=== PATIENT | male | born 1940 | race Caucasian/White ===

== ENCOUNTER 2023-05-20 13:29 | Outpatient (REF) | payer MEDICARE, BC, SELFPAY ==
[2023-05-20 14:50] LABS: Erythrocyte Sedimentation Rate 8 MM/HR (0-15)
[2023-05-20 16:07] LABS: Anion Gap 11 (12-20); Blood Urea Nitrogen 25 mg/dL (9-16); Calcium 10.1 mg/dL (8.4-10.2); Carbon Dioxide 29 mmol/L (22-29); Chloride 108 mmol/L (96-108); Estimated Glomerular Filt Rate 54; Glucose Random 91 mg/dL (60-115); Potassium 4.5 mmol/L (3.3-5.1); Sodium 143 mmol/L (135-145)
[2023-05-21 09:39] LABS: Lyme Abs Screen <0.90 index
== END 2023-05-20 13:30 | disposition home or self-care (01) ==
LOC: HO.LAB 13:29
PROVIDERS: PCP Internal Medicine; Visit Provider Psychiatry & Neurology Neurology
DX: G93.40 Encephalopathy, unspecified (principal)
CPT/HCPCS: 36415; 80048; 85652; 86617; 86618

== ENCOUNTER 2023-06-18 09:37 | Outpatient (REF) | payer MEDICARE, BC, SELFPAY ==
--- NOTE | ~2023-06-18 | MR_ITS ---
EXAMINATION: MR BRAIN WITHOUT AND WITH CONTRAST CLINICAL INFORMATION: Encephalopathy. COMPARISON: Brain MRI from 12/05/2021. TECHNIQUE: MRI of the brain was obtained using routine sequences without and following the administration of 8.5 mL of Gadavist intravenous contrast. FINDINGS: No focal restricted diffusion is demonstrated to suggest acute or subacute cerebral ischemia. No evidence of acute or chronic hemorrhagic products on heme-sensitive imaging. Scattered and partially confluent periventricular, deep white matter, and brainstem T2 FLAIR hyperintensities consistent with mild to moderate underlying microangiopathy. Proportional prominence of the ventricles and sulcal spaces without evidence of obstructive hydrocephalus. No abnormal mass effect. No midline shift. Normal appearance of the pituitary gland. Normal positioning of the cerebellar tonsils. Normal arterial and venous vascular flow voids are present. No abnormal contrast enhancement. Normal, homogeneous marrow signal. Mild mucosal thickening of the paranasal sinuses. No signal abnormalities within the mastoids. Bilateral lens extractions. MR/MR head/brain wo/w con IMPRESSION: 1. No acute intracranial abnormalities. No abnormal intracranial enhancement. 2. Mild to moderate underlying microangiopathy and generalized cerebral volume loss.
[2023-06-18] MEDS: gadobutroL 10 ML VIAL IVPUSH (10:48)
== END 2023-06-18 09:38 | disposition home or self-care (01) ==
LOC: HO.MRI 09:37
PROVIDERS: PCP Internal Medicine; Visit Provider Psychiatry & Neurology Neurology
DX: G93.40 Encephalopathy, unspecified (principal)
CPT/HCPCS: 70553; A9585

== ENCOUNTER 2023-07-03 11:03 | Outpatient (AMB) | payer MEDICARE, BC, SELFPAY ==
--- NOTE | 2023-07-03 11:50 | MHC.OFFVISPS ---
Intake Vital Signs 07/03/23 12:21 Height 6 ft 2 in Weight 172 lb Intake Visit Reasons: depression Chain Person Required: No Allergies amoxicillin Allergy (Intermediate, Verified 07/03/23 12:23) Rash Medication List - Last Reconciled 07/03/23 by Rosey Mojica APRN atorvastatin 20 mg PO DAILY cyanocobalamin (vitamin B-12) 1,000 mcg IM fluticasone propionate 50 mcg/actuation sprays intranasal lamotrigine 150 mg PO DAILY levothyroxine 175 mcg PO DAILY lithium carbonate ER mg PO memantine 5 mg PO BID quetiapine 200 mg PO BEDTIME sertraline 25 mg PO DAILY syringe with needle (BD Luer-Abdelrahman Syringe) As directed tamsulosin 0.4 mg PO BEDTIME HPI- Psychiatric Chief Complaint: depression HPI Narrative: Pt presents to appt with his Ly. He asks her to sit in on session with him. 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 he is anxious about ti. he af=grees with the diagnosis. he tells me both his parents has Alzheimer Disease in their 80s. He reports mood good but anxious; avoids social activities due to anxiety; states its hard fro him to talk at times. spends time with ; he does go to the gym to exercise with his and works on strength building several times a week; he reports his balance is not good and he has started to use cane; He finds it helpful to reminisce. He is able to reframe negative thoughts; He is adherent with meds; Pt reports no SI no HI; no sedation but intermittent dizziness when going from sitting to standing and lying down to standing; no fever; no SOB; no cough. He sees his PCP July 08 and the neurologist in September. He has started on sertraline 25mg daily and memantine 5 mg daily from neurologist Dr Moon. I have reviewed the two consult notes and summary from Dr Juarez Past Psychiatric History: saw Dr. Naqvi for 20 years; Stable on current meds for years; gets blood work done every 6 months; reports significant balance problems for years. Subjective Subjective Subjective Medication Compliance: Yes Side effects from medications: No Review of Systems Medical Review of Systems: changed Review of Systems Reports memory loss Comments: recent dx of Early Alzheimer disease Psychiatric: Reports memory loss Mental Status Exam Mental Status Exam Patient Appearance: Well Grooomed and Appropriate Patient Orientation: Person, Place, Time and Situation Level of Consciousness: Awake and Follows Commands Patient Behavior: Appropriate and Cooperative Mood Description: Appropriate and Anxious Affect Description: Appropriate and Anxious Patient Cognition Impaired: No Ability to Follow Directions: Good Speech Pattern: Clear and Difficulty Finding Words Memory Description: Episodic Impaired Hallucinations: None Delusions: Not Present Thought Process: Intact and Goal Oriented Thought Content: positive for Intact Judgement: Fair Results Reviewed Results Reviewed: 1) review of neurology consultation and summaries dated 05/20/23 and 06/26/23 : 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 2) review of MRI report from 06/18/23 : IMPRESSION: 1. No acute intracranial abnormalities. No abnormal intracranial enhancement. 2. Mild to moderate underlying microangiopathy and generalized cerebral volume loss. Assessment and Plan Assessment & Plan (1) Bipolar 1 disorder, mixed, moderate: Status: Acute Code(s): F31.62 - Bipolar disorder, current episode mixed, moderate (2) ERIK (generalized anxiety disorder): Status: Acute Code(s): F41.1 - Generalized anxiety disorder Plan Patient is an 83-year-old male with a history of bipolar 1 disorder and ERIK recently diagnosed with early Alzheimer disease. Plan Blood work ordered to check lithium and Lamictal levels as well as complete metabolic panel in order to assess efficacy at rule out side effects contributing to mild cognitive impairment. Continue medications as prescribed for now Consider reducing dosages specifically lithium and Seroquel to reduce possible side effects. Collaborate with primary care and neurology. Medications: New lamotrigine 150 mg PO DAILY 30 tabs 3RF lithium carbonate ER 900 mg (3 x 300 mg) PO BEDTIME 90 tabs 1RF quetiapine 200 mg PO BEDTIME 30 tabs 1RF Orders: Orders [place] Today [phone] - Other intermediate project manager (current) drug therapy Lamotrigine Lamictal Today [phone] - Other [facility] (current) drug therapy [facility] Today [phone] - Other intermediate project manager (current) drug therapy Counseling and coordination of Care Pt. Self Management counseling: Exercise, Maintenance-social rhythm, Med illness tx adherence, Nutrition education and improvement, Behavior activation and General coping skills Medication management counseling: Effectiveness, Side effects, Dosing range, Duration, Drug interaction and Adherence Diagnosis and Prognosis Counseling: Accuracy of diagnosis, Prognosis over time, Impact of diagnosis on life functions, Impact of family relationship, Problematic behaviors secondary to diagnosis and Adequacy of current interventions Details: I spent 50 minutes reviewing the record, seeing the patient and documenting in the medical record. Counseling provided to the patient/caregiver as outlined below. Addressed patient/caregiver concerns regarding current medication regime including effective adherence. Addressed patient/caregiver concerns regarding diagnosis and prognosis including accuracy of diagnosis, prognosis over time, impact of diagnosis. Addressed patient/caregiver concerns regarding impact of recent stressors. 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 parents were immigrants from [place], youngest of 6 children, all siblings . Substance History: none Trauma History: none Coding Level of Care Code Est Pt Level 5 (70227) Diagnoses Bipolar 1 disorder, mixed, moderate F31.62 ERIK (generalized anxiety disorder) F41.1
== END 2023-07-03 11:55 | disposition home or self-care (01) ==
LOC: HO.HOP 11:04
PROVIDERS: PCP Internal Medicine; Visit Provider Clinical Nurse Specialist Psychiatric/Mental Health
DX: F31.62 Bipolar disorder, current episode mixed, moderate (principal); F41.1 Generalized anxiety disorder
CPT/HCPCS: 99215

== ENCOUNTER → 2023-07-03 11:03 | Outpatient (BNVA) | payer MEDICARE, BC, SELFPAY | PROVIDERS: PCP Internal Medicine; Visit Provider Clinical Nurse Specialist Psychiatric/Mental Health | DX: F31.62 Bipolar disorder, current episode mixed, moderate (principal); F41.1 Generalized anxiety disorder; Z79.899 Other long term (current) drug therapy | CPT/HCPCS: 99212 ==

== ENCOUNTER 2023-08-12 13:53 | Outpatient (AMB) | payer MEDICARE, BC, SELFPAY ==
--- NOTE | 2023-08-12 13:58 | A.OFFPSYCH_ITS ---
Intake Intake Visit Reasons: depression, Bipolar disorder, anxiety Allergies amoxicillin Allergy (Intermediate, Verified 07/03/23 12:23) Rash Medication List - Last Reconciled 08/12/23 by Rosey Mojica APRN atorvastatin 20 mg PO DAILY cyanocobalamin (vitamin B-12) 1,000 mcg IM fluticasone propionate 50 mcg/actuation sprays intranasal lamotrigine 150 mg PO DAILY levothyroxine 175 mcg PO DAILY lithium carbonate ER 900 mg (3 x 300 mg) PO BEDTIME memantine 5 mg PO BID quetiapine 200 mg PO BEDTIME sertraline 25 mg PO DAILY syringe with needle (BD Luer-Abdelrahman Syringe) As directed tamsulosin 0.4 mg PO BEDTIME HPI- Psychiatric Chief Complaint: depression, Bipolar disorder, anxiety HPI Narrative: pt is here for follow up for Bipolar depression, anxiety and new diagnosis of early Alzheimer disease; pt is accompanied by his Ly. Pt mood fair; he had labs done and these are scanned to the chart; lithium level and lamictal level both in therapeutic range; BUN creatinine and LFTs are in normal range. Pt discussing end of life care concerns; has begun detailing health directives with his and PCP; pt also discussed being triggered by dx of alzheimers as his father at age of 74 of same; pt states his father was awful to him throughout his life and he fears becoming like his father. Pt has been isolating. he did not go to [facility] because he was afraid he would embarrass himself by making a mistake. denies SI or HI Past Psychiatric History: saw Dr. Naqvi for 20 years; Stable on current meds for years; gets blood work done every 6 months; reports significant balance problems for years. Current/previous psychiatrist: [facility] Current/previous therapist: none Subjective Subjective Subjective Medication Compliance: Yes Side effects from medications: No Review of Systems Medical Review of Systems: unchanged Mental Status Exam Mental Status Exam Patient Appearance: Well Grooomed and Appropriate Patient Orientation: Person, Place, Time and Situation Level of Consciousness: Awake Patient Behavior: Appropriate and Good Eye Contact Mood Description: Depressed Affect Description: Withdrawn (initially) and Appropriate Ability to Follow Directions: Good Speech Pattern: Clear, Difficulty Finding Words and Poor Articulation Memory Description: Intact Hallucinations: None Delusions: Not Present Thought Process: Rumination Thought Content: positive for Preoccupation Judgement: Fair Assessment and Plan Assessment & Plan (1) Bipolar 1 disorder, mixed, moderate: Status: Acute Code(s): F31.62 - Bipolar disorder, current episode mixed, moderate (2) ERIK (generalized anxiety disorder): Status: Acute Code(s): F41.1 - Generalized anxiety disorder (3) Anticipatory grief: Status: Acute Code(s): F43.20 - Adjustment disorder, unspecified Plan continue medications problem solving and supportive psychotherpay re: end of life concerns CBT to reduce depression and isolation Counseling and coordination of Care Pt. Self Management counseling: Maintenance-social rhythm, Mindfulness, Sleep hy giene, General coping skills and Greif counseling Medication management counseling: Effectiveness, Side effects, Dosing range, Duration, Drug interaction and Adherence Diagnosis and Prognosis Counseling: Accuracy of diagnosis, Prognosis over time, Impact of diagnosis on life functions, Impact of family relationship, Problematic behaviors secondary to diagnosis and Adequacy of current interventions Details: I spent 45 minutes reviewing the record, seeing the patient and documenting in the medical record. Counseling provided to the patient/caregiver as outlined below. Addressed patient/caregiver concerns regarding current medication regime including effective adherence. Addressed patient/caregiver concerns regarding diagnosis and prognosis including accuracy of diagnosis, prognosis over time, impact of diagnosis. Addressed patient/caregiver concerns regarding impact of recent stressors. 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 parents were immigrants from [place], youngest of 6 children, all siblings . Substance History: none Trauma History: none Coding Level of Care Code Est Pt Level 4 (99558) Therapy 30m w/E&M (80060) Diagnoses Bipolar 1 disorder, mixed, moderate F31.62 ERIK (generalized anxiety disorder) F41.1 Anticipatory grief F43.20
== END 2023-08-12 14:30 ==
LOC: HO.HOP 13:53
PROVIDERS: PCP Internal Medicine; Visit Provider Clinical Nurse Specialist Psychiatric/Mental Health
DX: F31.62 Bipolar disorder, current episode mixed, moderate (principal); F41.1 Generalized anxiety disorder; F43.20 Adjustment disorder, unspecified
CPT/HCPCS: 90833; 99214

== ENCOUNTER → 2023-08-12 13:53 | Outpatient (BNVA) | payer MEDICARE, BC, SELFPAY | PROVIDERS: PCP Internal Medicine; Visit Provider Clinical Nurse Specialist Psychiatric/Mental Health | DX: F31.62 Bipolar disorder, current episode mixed, moderate (principal); F41.1 Generalized anxiety disorder; F43.20 Adjustment disorder, unspecified | CPT/HCPCS: 99212 ==

== ENCOUNTER 2023-09-17 14:00 | Outpatient (AMB) | payer MEDICARE, BC, SELFPAY ==
--- NOTE | 2023-09-17 14:56 | MHC.OFFVISPS ---
Intake Intake Visit Reasons: depression, dementia, anxiety Hydraulic Press Tender Required: No Allergies amoxicillin Allergy (Intermediate, Verified 07/03/23 12:23) Rash HPI- Psychiatric Chief Complaint: depression, dementia, anxiety HPI Narrative: Patient is here with his today for follow-up on bipolar depression anxiety and adjusting to his new diagnosis of Alzheimer's depression. Patient has been compliant with medications however he missed several B12 injections. He reports he has had some good days where his mood has been good he is optimistic energetic and involved with others. On other days he feels depressed low energy he falls asleep easily during the day he will not often a chair while reading a book. He has more worried thoughts on the bad days. He struggles more with self-esteem. He reports difficulty falling asleep at night he feels restless at night anxious and worried he reports delayed sleep initiation. He also reports waking in the middle of the night with nightmares several times a week. He has good support from his . He enjoys reminiscing. He has been thinking about his life reviewing it and thinking about his . He reports that he has a feeling that there is nothing left undone which she says brings him. He reports at times he worries about the dementia. His father of dementia and he says that his father was very agitated and very difficult before his . Patient does not want to experience the same level of agitation as his father. We talked about the fact that his father did not have access to medication that helps with agitation. And that the patient does have access to medication to reduce agitation if needed. Past Psychiatric History: saw Dr. Naqvi for 20 years; Stable on current meds for years; gets blood work done every 6 months; reports significant balance problems for years. Subjective Subjective Subjective Medication Compliance: Yes Side effects from medications: No Review of Systems Medical Review of Systems: unchanged Mental Status Exam Mental Status Exam Patient Appearance: Well Grooomed and Appropriate Patient Orientation: Person, Place, Time and Situation Level of Consciousness: Awake and Alert Patient Behavior: Appropriate and Cooperative Mood Description: Happy, Appropriate, Anxious and Sad Affect Description: Happy, Appropriate, Anxious and Sad Ability to Follow Directions: Good Speech Pattern: Clear and Appropriate Memory Description: Intact Hallucinations: None Delusions: Not Present Thought Process: Intact and Goal Oriented Thought Content: positive for Intact Judgement: Good Results Reviewed Results Reviewed: PHQ9 =4 GAD7 =4 labs done in june 2023 scanned to chart- lithium level 1.0 Assessment and Plan Assessment & Plan (1) ERIK (generalized anxiety disorder): Status: Acute Code(s): F41.1 - Generalized anxiety disorder (2) Bipolar 1 disorder, mixed, moderate: Status: Acute Code(s): F31.62 - Bipolar disorder, current episode mixed, moderate (3) Anticipatory grief: Status: Acute Code(s): F43.20 - Adjustment disorder, unspecified Plan reduce lithium from 900mg at bedtime to 750mg at bedtime continue lamictal 150mg daily contiue seroquel 200mg at bedtime continue zoloft 25 mg daily Medications: New lithium carbonate 150 mg PO BEDTIME 30 caps 2RF sertraline 25 mg PO DAILY 30 tabs 2RF Changed From lithium carbonate ER 900 mg (3 x 300 mg) PO BEDTIME 90 tabs 1RF To lithium carbonate ER 600 mg (2 x 300 mg) PO BEDTIME 60 tabs 1RF Refilled lamotrigine 150 mg PO DAILY 30 tabs 3RF Counseling and coordination of Care Pt. Self Management counseling: Exercise, Maintenance-social rhythm, Sleep hygiene and Greif counseling Medication management counseling: Effectiveness, Side effects, Dosing range, Duration, Drug interaction and Adherence Diagnosis and Prognosis Counseling: Accuracy of diagnosis, Prognosis over time, Impact of diagnosis on life functions, Impact of family relationship, Problematic behaviors secondary to diagnosis and Adequacy of current interventions Details: I spent 60 minutes reviewing the record, seeing the patient and documenting in the medical record. Counseling provided to the patient/caregiver as outlined below. Addressed patient/caregiver concerns regarding current medication regime including effective adherence. Addressed patient/caregiver concerns regarding diagnosis and prognosis including accuracy of diagnosis, prognosis over time, impact of diagnosis. Addressed patient/caregiver concerns regarding impact of recent stressors. 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 parents were immigrants from [place], youngest of 6 children, all siblings . Substance History: none Trauma History: none Coding Level of Care Code Est Pt Level 4 (15822) Therapy 30m w/E&M (96446) Diagnoses ERIK (generalized anxiety disorder) F41.1 Bipolar 1 disorder, mixed, moderate F31.62 Anticipatory grief F43.20 Comment support reminiscing, grief counseling; CBT to reduce depression
== END 2023-09-17 14:54 | disposition home or self-care (01) ==
LOC: HO.HOP 14:00
PROVIDERS: PCP Internal Medicine; Visit Provider Clinical Nurse Specialist Psychiatric/Mental Health
DX: F41.1 Generalized anxiety disorder (principal); F31.62 Bipolar disorder, current episode mixed, moderate; F43.20 Adjustment disorder, unspecified
CPT/HCPCS: 90833; 99214

== ENCOUNTER → 2023-09-17 14:00 | Outpatient (BNVA) | payer MEDICARE, BC, SELFPAY | PROVIDERS: PCP Internal Medicine; Visit Provider Clinical Nurse Specialist Psychiatric/Mental Health | DX: F31.62 Bipolar disorder, current episode mixed, moderate (principal); F43.20 Adjustment disorder, unspecified; F41.1 Generalized anxiety disorder | CPT/HCPCS: 99212 ==

== ENCOUNTER 2023-09-25 15:46 | Outpatient (REF) | payer MEDICARE, BC, SELFPAY ==
[2023-10-03 15:24] LABS: Acetylcholine Recept. Blocking 36 (<15)
[2023-10-09 16:07] LABS: Acetylcholine Recep Modulating 79
[2023-10-09 17:04] LABS: Acetylcholine Receptor Binding 0.65 nmol/L
== END 2023-09-25 15:47 | disposition home or self-care (01) ==
LOC: HO.LAB 15:46
PROVIDERS: PCP Internal Medicine; Visit Provider Psychiatry & Neurology Neurology
DX: R47.1 Dysarthria and anarthria (principal)
CPT/HCPCS: 36415; 86041; 86042; 86043

== ENCOUNTER 2023-10-14 10:58 | Outpatient (AMB) | payer MEDICARE, BC, SELFPAY ==
--- NOTE | 2023-10-14 10:58 | MHC.OFFVISPS ---
Intake Intake Visit Reasons: depression Allergies amoxicillin Allergy (Intermediate, Verified 07/03/23 12:23) Rash Medication List - Last Reconciled 10/14/23 by Rosey Mojica APRN atorvastatin 20 mg PO DAILY cyanocobalamin (vitamin B-12) 1,000 mcg IM fluticasone propionate 50 mcg/actuation sprays intranasal lamotrigine 150 mg PO DAILY levothyroxine 175 mcg PO DAILY lithium carbonate 150 mg PO BEDTIME lithium carbonate ER 600 mg (2 x 300 mg) PO BEDTIME memantine 5 mg PO BID quetiapine 200 mg PO BEDTIME sertraline 25 mg PO DAILY sertraline 25 mg PO DAILY syringe with needle (BD Luer-Abdelrahman Syringe) As directed tamsulosin 0.4 mg PO BEDTIME HPI- Psychiatric Chief Complaint: depression HPI Narrative: pt has decreased the lithium from 900mg daily to 750mg daily; mood is more positive,. he is not falling asleep during the day as often; He has resumed B12 injections and goes to the office at [place] to get them. He has started playing his kepyboard daily. he is reading poetry out loud; he is attending [employer]. He continues to be critical of self at times. He reports having balance problems and uses a cane consistently. no falls in over 6 months. Past Psychiatric History: saw Dr. Naqvi for 20 years; Stable on current meds for years; gets blood work done every 6 months; reports significant balance problems for years. Subjective Subjective Subjective Medication Compliance: Yes Side effects from medications: No Review of Systems Medical Review of Systems: unchanged Mental Status Exam Mental Status Exam Patient Appearance: Well Grooomed and Appropriate Patient Orientation: Person, Place, Time and Situation Level of Consciousness: Awake and Appropriate Patient Behavior: Appropriate and Talkative Mood Description: Happy and Appropriate Affect Description: Happy and Appropriate Patient Cognition Impaired: No Ability to Follow Directions: Good Speech Pattern: Clear, Difficulty Finding Words (minimal 2 times in session), Appropriate and Coherent Memory Description: Intact Hallucinations: None Delusions: Not Present Thought Process: Intact and Goal Oriented Thought Content: positive for Intact and positive for Goal Oriented Judgement: Good Assessment and Plan Assessment & Plan (1) ERIK (generalized anxiety disorder): Status: Acute Code(s): F41.1 - Generalized anxiety disorder (2) Bipolar 1 disorder, mixed, moderate: Status: Acute Code(s): F31.62 - Bipolar disorder, current episode mixed, moderate (3) Anticipatory grief: Status: Acute Code(s): F43.20 - Adjustment disorder, unspecified Plan continue medications with no changes. stay hydrated take care in hot weather due to reduced temp regulation due to meds Counseling and coordination of Care Medication management counseling: Effectiveness, Side effects, Dosing range, Duration, Drug interaction and Adherence Diagnosis and Prognosis Counseling: Accuracy of diagnosis, Prognosis over time, Impact of diagnosis on life functions, Impact of family relationship, Problematic behaviors secondary to diagnosis and Adequacy of current interventions Details: I spent 45 minutes reviewing the record, seeing the patient and documenting in the medical record. Counseling provided to the patient/caregiver as outlined below. Addressed patient/caregiver concerns regarding current medication regime including effective adherence. Addressed patient/caregiver concerns regarding diagnosis and prognosis including accuracy of diagnosis, prognosis over time, impact of diagnosis. Addressed patient/caregiver concerns regarding impact of recent stressors. 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 parents were immigrants from [place], youngest of 6 children, all siblings . Substance History: none Trauma History: none Coding Level of Care Code Est Pt Level 4 (02439) Therapy 30m w/E&M (61106) Diagnoses ERIK (generalized anxiety disorder) F41.1 Bipolar 1 disorder, mixed, moderate F31.62 Anticipatory grief F43.20
== END 2023-10-14 11:33 | disposition home or self-care (01) ==
LOC: HO.HOP 10:58
PROVIDERS: PCP Internal Medicine; Visit Provider Clinical Nurse Specialist Psychiatric/Mental Health
DX: F41.1 Generalized anxiety disorder (principal); F31.62 Bipolar disorder, current episode mixed, moderate; F43.20 Adjustment disorder, unspecified
CPT/HCPCS: 90833; 99214

== ENCOUNTER → 2023-10-14 10:58 | Outpatient (BNVA) | payer MEDICARE, BC, SELFPAY | PROVIDERS: PCP Internal Medicine; Visit Provider Clinical Nurse Specialist Psychiatric/Mental Health | DX: F41.1 Generalized anxiety disorder (principal); F31.62 Bipolar disorder, current episode mixed, moderate; F43.20 Adjustment disorder, unspecified | CPT/HCPCS: 99212 ==

== ENCOUNTER 2023-11-26 11:01 | Outpatient (AMB) | payer MEDICARE, BC, SELFPAY ==
--- NOTE | 2023-11-26 11:11 | A.OFFPSYCH_ITS ---
Intake Intake Visit Reasons: depression Administrative Assistant Front Desk Required: No Allergies amoxicillin Allergy (Intermediate, Verified 07/03/23 12:23) Rash Medication List - Last Reconciled 11/26/23 by Rosey Mojica APRN atorvastatin 20 mg PO DAILY cyanocobalamin (vitamin B-12) 1,000 mcg IM fluticasone propionate 50 mcg/actuation sprays intranasal lamotrigine 150 mg PO DAILY levothyroxine 175 mcg PO DAILY lithium carbonate 150 mg PO BEDTIME lithium carbonate ER 900 mg (3 x 300 mg) PO BEDTIME memantine 5 mg PO BID memantine 10 mg PO BID pantoprazole 40 mg PO DAILY prednisone 20 mg PO BID pyridostigmine bromide 60 mg PO TID quetiapine 200 mg PO BEDTIME sertraline 25 mg PO DAILY sertraline 25 mg PO DAILY syringe with needle (BD Luer-Abdelrahman Syringe) As directed tamsulosin 0.4 mg PO BEDTIME HPI- Psychiatric Chief Complaint: depression HPI Narrative: pt taking medications as prescribed; pt reports feeling discouraged; he was recently dx with myasthenia gravis and started on prednisone and pyridostigmine bromide. Hes feeling weak and easily fatigued. He worries about . 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 He talked about his parents' deaths. He shows no sign of boris; No SI or HI Past Psychiatric History: saw Dr. Naqvi for 20 years; Stable on current meds for years; gets blood work done every 6 months; reports significant balance problems for years. Subjective Subjective Subjective Medication Compliance: Yes Side effects from medications: No Review of Systems Medical Review of Systems: unchanged Mental Status Exam Mental Status Exam Patient Appearance: Well Grooomed and Appropriate Patient Orientation: Person, Place, Time and Situation Level of Consciousness: Awake and Appropriate Patient Behavior: Appropriate and Cooperative Mood Description: Anxious Affect Description: Anxious Patient Cognition Impaired: No Ability to Follow Directions: Good Speech Pattern: Clear Hallucinations: None Delusions: Not Present Thought Process: Intact and Goal Oriented Thought Content: positive for Intact and positive for Goal Oriented Judgement: Fair Assessment and Plan Assessment & Plan (1) Anticipatory grief: Status: Acute Code(s): F43.20 - Adjustment disorder, unspecified (2) ERIK (generalized anxiety disorder): Status: Acute Code(s): F41.1 - Generalized anxiety disorder (3) Bipolar 1 disorder, mixed, moderate: Status: Acute Code(s): F31.62 - Bipolar disorder, current episode mixed, moderate Plan reduce lamictal from 150mg to 100mg daily as pt is on many medications and may not tolerate as well due to polypharmacy. Medications: New lamotrigine (Lamictal) 100 mg PO DAILY 30 tabs 2RF Discontinued lamotrigine Discontinued Reason: Doctor's Order 150 mg PO DAILY 30 tabs 3RF Counseling and coordination of Care Pt. Self Management counseling: Maintenance-social rhythm, Sleep hygiene, General coping skills, Greif counseling and Problem solving Medication management counseling: Effectiveness, Side effects, Dosing range, Duration, Drug interaction and Adherence Diagnosis and Prognosis Counseling: Accuracy of diagnosis, Prognosis over time, Impact of diagnosis on life functions, Impact of family relationship, Problematic behaviors secondary to diagnosis and Adequacy of current interventions Details: I spent 60 minutes reviewing the record, seeing the patient and documenting in the medical record. Counseling provided to the patient/caregiver as outlined below. Addressed patient/caregiver concerns regarding current medication regime including effective adherence. Addressed patient/caregiver concerns regarding diagnosis and prognosis including accuracy of diagnosis, prognosis over time, impact of diagnosis. Addressed patient/caregiver concerns regarding impact of recent stressors. 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 parents were immigrants from [place], youngest of 6 children, all siblings . Substance History: none Trauma History: none Coding Level of Care Code Est Pt Level 4 (08379) Therapy 30m w/E&M (38815) Diagnoses Anticipatory grief F43.20 ERIK (generalized anxiety disorder) F41.1 Bipolar 1 disorder, mixed, moderate F31.62
== END 2023-11-26 11:58 | disposition home or self-care (01) ==
LOC: HO.HOP 11:01
PROVIDERS: PCP Internal Medicine; Visit Provider Clinical Nurse Specialist Psychiatric/Mental Health
DX: F43.20 Adjustment disorder, unspecified (principal); F41.1 Generalized anxiety disorder; F31.62 Bipolar disorder, current episode mixed, moderate
CPT/HCPCS: 90833; 99214

== ENCOUNTER → 2023-11-26 11:01 | Outpatient (BNVA) | payer MEDICARE, BC, SELFPAY | PROVIDERS: PCP Internal Medicine; Visit Provider Clinical Nurse Specialist Psychiatric/Mental Health | DX: F43.20 Adjustment disorder, unspecified (principal); F41.1 Generalized anxiety disorder; F31.62 Bipolar disorder, current episode mixed, moderate | CPT/HCPCS: 99212 ==

== ENCOUNTER 2024-01-14 10:37 | Outpatient (AMB) | payer MEDICARE, BC, SELFPAY ==
--- NOTE | 2024-01-14 10:47 | MHC.OFFVISPS ---
Intake Intake Visit Reasons: depression Retail Gift Card Merchandising Required: No Allergies amoxicillin Allergy (Intermediate, Verified 07/03/23 12:23) Rash Medication List - Last Reconciled 01/14/24 by Rosey Mojica APRN atorvastatin 20 mg PO DAILY cyanocobalamin (vitamin B-12) 1,000 mcg IM fluticasone propionate 50 mcg/actuation sprays intranasal lamotrigine (Lamictal) 100 mg PO DAILY levothyroxine 175 mcg PO DAILY lithium carbonate 150 mg PO BEDTIME lithium carbonate ER 900 mg (3 x 300 mg) PO BEDTIME memantine 5 mg PO BID memantine 10 mg PO BID pantoprazole 40 mg PO DAILY prednisone 20 mg PO BID pyridostigmine bromide 60 mg PO TID quetiapine 200 mg PO BEDTIME sertraline 25 mg PO DAILY sertraline 25 mg PO DAILY syringe with needle (BD Luer-Abdelrahman Syringe) As directed tamsulosin 0.4 mg PO BEDTIME HPI- Psychiatric Chief Complaint: depression HPI Narrative: pts mood fair; some worry and depression about his medical condition; he reports better language function and sharper thinking since being on memnatine and sertraline; the reduce lamictal and lithium seemed to help his cognition as well. no SI or HI Past Psychiatric History: saw Dr. Naqvi for 20 years; Stable on current meds for years; gets blood work done every 6 months; reports significant balance problems for years. Subjective Subjective Subjective Medication Compliance: Yes Side effects from medications: No Review of Systems Medical Review of Systems: unchanged Mental Status Exam Mental Status Exam Patient Appearance: Well Grooomed and Appropriate Patient Orientation: Person, Place, Time and Situation Level of Consciousness: Awake Patient Behavior: Appropriate Mood Description: Sad Affect Description: Constricted and Cheerful Patient Cognition Impaired: No Ability to Follow Directions: Good Speech Pattern: Clear and Appropriate Memory Description: Intact Hallucinations: None Delusions: Not Present Thought Process: Intact Thought Content: positive for Intact Judgement: Good Assessment and Plan Assessment & Plan (1) Bipolar 1 disorder, mixed, moderate: Status: Acute Code(s): F31.62 - Bipolar disorder, current episode mixed, moderate (2) ERIK (generalized anxiety disorder): Status: Acute Code(s): F41.1 - Generalized anxiety disorder (3) Anticipatory grief: Status: Acute Code(s): F43.20 - Adjustment disorder, unspecified (4) Other usp (current) drug therapy: Status: Acute Code(s): Z79.899 - Other usp (current) drug therapy Medications: Changed From lithium carbonate ER 900 mg (3 x 300 mg) PO BEDTIME 90 tabs 2RF To lithium carbonate ER 600 mg (2 x 300 mg) PO BEDTIME 60 tabs 2RF Counseling and coordination of Care Pt. Self Management counseling: Maintenance-social rhythm, Mod caffeine/ETOH intake, Sleep hygiene, Behavior activation and Cognitive restructuring Medication management counseling: Effectiveness, Side effects, Dosing range, Duration, Drug interaction and Adherence Diagnosis and Prognosis Counseling: Accuracy of diagnosis, Prognosis over time, Impact of diagnosis on life functions, Impact of family relationship, Problematic behaviors secondary to diagnosis and Adequacy of current interventions Details: I spent 50 minutes reviewing the record, seeing the patient and documenting in the medical record. Counseling provided to the patient/caregiver as outlined below. Addressed patient/caregiver concerns regarding current medication regime including effective adherence. Addressed patient/caregiver concerns regarding diagnosis and prognosis including accuracy of diagnosis, prognosis over time, impact of diagnosis. Addressed patient/caregiver concerns regarding impact of recent stressors. 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 parents were immigrants from [place], youngest of 6 children, all siblings . Substance History: none Trauma History: none Coding Level of Care Code Est Pt Level 4 (76056) Therapy 30m w/E&M (99127) Diagnoses Bipolar 1 disorder, mixed, moderate F31.62 ERIK (generalized anxiety disorder) F41.1 Anticipatory grief F43.20 Other pay agent (current) drug therapy Z79.899
== END 2024-01-14 11:20 | disposition home or self-care (01) ==
LOC: HO.HOP 10:37
PROVIDERS: PCP Internal Medicine; Visit Provider Clinical Nurse Specialist Psychiatric/Mental Health
DX: F31.62 Bipolar disorder, current episode mixed, moderate (principal); F41.1 Generalized anxiety disorder; F43.20 Adjustment disorder, unspecified; Z79.899 Other long term (current) drug therapy
CPT/HCPCS: 90833; 99214

== ENCOUNTER → 2024-01-14 10:37 | Outpatient (BNVA) | payer MEDICARE, BC, SELFPAY | PROVIDERS: PCP Internal Medicine; Visit Provider Clinical Nurse Specialist Psychiatric/Mental Health | DX: F31.62 Bipolar disorder, current episode mixed, moderate (principal); F41.1 Generalized anxiety disorder; F43.20 Adjustment disorder, unspecified; Z79.899 Other long term (current) drug therapy | CPT/HCPCS: 99212 ==

== ENCOUNTER 2024-02-10 10:31 | Outpatient (AMB) | payer MEDICARE, BC, SELFPAY ==
--- NOTE | 2024-02-10 10:37 | A.OFFPSYCH_ITS ---
Intake Intake Visit Reasons: depression Window Treatment Installer Required: No Allergies amoxicillin Allergy (Intermediate, Verified 07/03/23 12:23) Rash Medication List - Last Reconciled 02/10/24 by Rosey Mojica APRN atorvastatin 20 mg PO DAILY cyanocobalamin (vitamin B-12) 1,000 mcg IM fluticasone propionate 50 mcg/actuation sprays intranasal lamotrigine (Lamictal) 100 mg PO DAILY levothyroxine 175 mcg PO DAILY lithium carbonate 150 mg PO BEDTIME lithium carbonate ER 600 mg (2 x 300 mg) PO BEDTIME memantine 10 mg PO BID pantoprazole 40 mg PO DAILY prednisone 20 mg PO BID pyridostigmine bromide 60 mg PO TID quetiapine 200 mg PO BEDTIME sertraline 25 mg PO DAILY syringe with needle (BD Luer-Abdelrahman Syringe) As directed tamsulosin 0.4 mg PO BEDTIME HPI- Psychiatric Chief Complaint: depression HPI Narrative: pt more depressed; more irritable; hopeless at times; avoiding outings; more critical of slef; more frustrated with medical condition. passive SI , no plan or intent; no HI Past Psychiatric History: saw Dr. Naqvi for 20 years; Stable on current meds for years; gets blood work done every 6 months; reports significant balance problems for years. Subjective Subjective Subjective Medication Compliance: Yes Side effects from medications: No Review of Systems Medical Review of Systems: unchanged Mental Status Exam Mental Status Exam Patient Appearance: Well Grooomed and Appropriate Patient Orientation: Person, Place, Time and Situation Level of Consciousness: Awake and Appropriate Patient Behavior: Appropriate and Talkative Mood Description: Anxious and Sad Affect Description: Anxious and Sad Patient Cognition Impaired: Yes Ability to Follow Directions: Good Speech Pattern: Clear Memory Description: Episodic Impaired Hallucinations: None Delusions: Not Present Thought Process: Intact Thought Content: positive for Intact and positive for Loose Associations Judgement: Fair Assessment and Plan Assessment & Plan (1) Anticipatory grief: Status: Acute Code(s): F43.20 - Adjustment disorder, unspecified (2) ERIK (generalized anxiety disorder): Status: Acute Code(s): F41.1 - Generalized anxiety disorder (3) Bipolar 1 disorder, mixed, moderate: Status: Acute Code(s): F31.62 - Bipolar disorder, current episode mixed, moderate Plan increase lithium to 900mg at bedtime and change to 450mg tablets (ER) as pt feels dismayed but the number of pills he takes in a 24 hour period Medications: New lithium carbonate ER 900 mg (2 x 450 mg) PO BEDTIME 60 tabs 2RF Discontinued lithium carbonate ER Discontinued Reason: Duplicate 600 mg (2 x 300 mg) PO BEDTIME 60 tabs 2RF lithium carbonate Discontinued Reason: Doctor's Order 150 mg PO BEDTIME 30 caps 2RF Counseling and coordination of Care Pt. Self Management counseling: Mod caffeine/ETOH intake, Sleep hygiene, Behavior activation, General coping skills and Problem solving Medication management counseling: Effectiveness, Side effects, Dosing range, Duration, Drug interaction and Adherence Diagnosis and Prognosis Counseling: Accuracy of diagnosis, Prognosis over time, Impact of diagnosis on life functions, Impact of family relationship, Problematic behaviors secondary to diagnosis and Adequacy of current interventions Details: I spent 45 minutes reviewing the record, seeing the patient and documenting in the medical record. Counseling provided to the patient/caregiver as outlined below. Addressed patient/caregiver concerns regarding current medication regime including effective adherence. Addressed patient/caregiver concerns regarding diagnosis and prognosis including accuracy of diagnosis, prognosis over time, impact of diagnosis. Addressed patient/caregiver concerns regarding impact of recent stressors. 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 parents were immigrants from [place], youngest of 6 children, all siblings . Substance History: none Trauma History: none Coding Level of Care Code Est Pt Level 4 (68741) Therapy 30m w/E&M (71721) Diagnoses Anticipatory grief F43.20 ERIK (generalized anxiety disorder) F41.1 Bipolar 1 disorder, mixed, moderate F31.62
== END 2024-02-10 15:51 | disposition home or self-care (01) ==
LOC: HO.HOP 10:31
PROVIDERS: PCP Internal Medicine; Visit Provider Clinical Nurse Specialist Psychiatric/Mental Health
DX: F43.20 Adjustment disorder, unspecified (principal); F41.1 Generalized anxiety disorder; F31.62 Bipolar disorder, current episode mixed, moderate
CPT/HCPCS: 90833; 99214

== ENCOUNTER → 2024-02-10 10:31 | Outpatient (BNVA) | payer MEDICARE, BC, SELFPAY | PROVIDERS: PCP Internal Medicine; Visit Provider Clinical Nurse Specialist Psychiatric/Mental Health | DX: F43.20 Adjustment disorder, unspecified (principal); F41.1 Generalized anxiety disorder; F31.62 Bipolar disorder, current episode mixed, moderate | CPT/HCPCS: 99212 ==

== ENCOUNTER 2024-03-18 10:31 | Inpatient (IN) | payer MEDICARE, BC, SELFPAY ==
--- NOTE | ~2024-03-18 | US_ITS ---
EXAMINATION: US limited abdomen CLINICAL INFORMATION: Rule out ascites COMPARISON: None available at the time of this dictation. TECHNIQUE: High-frequency curvilinear transducer ultrasound utilized, area of interest scanned, 4 quadrants. FINDINGS: No ultrasound evidence of ascites. US/US abdomen limited IMPRESSION: No ultrasound evidence of ascites. Electronically signed by: Mike Gallo MD 03/21/2024 07:53 PM EST
--- NOTE | ~2024-03-18 | XR_ITS ---
EXAMINATION: XR CHEST CLINICAL INFORMATION: chest pain COMPARISON: None available. TECHNIQUE: 2 views of the chest were obtained. FINDINGS: No significant abnormality is noted involving the heart, lungs, mediastinum, bony thorax or soft tissues. XR/XR chest 2V IMPRESSION: Unremarkable examination. Electronically signed by: Mendel Jade MD 03/18/2024 04:43 PM [facility]
[2024-03-18 11:07] VITALS: BP 120/74; PULSE 73; RESP 20; TEMP 36.3; O2SAT 97; BMI 23.7
--- NOTE | 2024-03-18 11:09 | ED_ITS ---
HPI - General Adult General Chief complaint: General Medical Stated complaint: MG flare Time Seen by Provider: 03/18/24 14:22 History of Present Illness ED Provider: Felicity REYES narrative: the patient is an 83-year-old male who has a history of myasthenia gravis. He also has a history of mild dementia. He lives with his . He had an appointment with his neurologist, Dr. Juarez, today. At the appointment the patient expressed a sense of worsening shortness of breath and a sense of difficulty breathing. Dr. Juarez was concerned about the patient's general condition and felt that the patient should be hospitalized for treatment for his myasthenia gravis with IVIG. The patient was therefore sent to the emergency room. no fever, sweats, chills. No cough or sputum. Related Data Home Medications ?Medication ?Instructions ?Recorded ?Confirmed atorvastatin 20 mg tablet 20 mg PO DAILY 07/03/23 03/18/24 cyanocobalamin (vitamin B-12) 1,000 mcg IM QMONTH 07/03/23 03/18/24 1,000 mcg/mL injection solution fluticasone propionate 50 2 spray intranasal DAILY 07/03/23 03/18/24 mcg/actuation nasal spray,suspension levothyroxine 175 mcg tablet 175 mcg PO DAILY 07/03/23 03/18/24 syringe with needle 3 mL 25 x 5/8 #1 ea 07/03/23 02/10/24 (BD Luer-Abdelrahman Syringe) memantine 10 mg tablet 10 mg PO BID 11/26/23 03/18/24 pantoprazole 40 mg tablet,delayed 40 mg PO DAILY 11/26/23 03/18/24 release pyridostigmine bromide 60 mg tablet 60 mg PO TID 11/26/23 03/18/24 lamotrigine 100 mg tablet 100 mg PO BEDTIME 03/18/24 03/18/24 (Lamictal) mycophenolate mofetil 500 mg tablet 500 mg PO BID 03/18/24 03/18/24 prednisone 20 mg tablet 20 mg PO DAILY 03/18/24 03/18/24 Previous Rx's ?Medication ?Instructions ?Recorded sertraline 25 mg tablet 25 mg PO DAILY #30 tabs 09/17/23 lithium carbonate 450 mg 900 mg (2 x 450 mg) PO BEDTIME #60 02/10/24 tablet,extended release tabs quetiapine 200 mg tablet 200 mg PO BEDTIME #30 tabs 03/12/24 Allergies Allergy/AdvReac Type Severity Reaction Status Date / Time amoxicillin Allergy Intermediate Rash Verified 03/18/24 11:09 Review of Systems 2 Review of Systems: Yes all other systems are reviewed and are negative [facility] Social History Social History Patient Tobacco Use Status: Never used Tobacco Advance Directives: No Advance Directives Information Provided: Yes Do you have a plan to hurt others: No Plan Nutrition Risks: No Nutritional Risk and Difficulty swallowing service: No Physical Exam ED Vital Signs: Vital Signs - 24 hr 03/18/24 15:50 Temperature 98.4 F Pulse Rate 64 Respiratory Rate 16 Blood Pressure 138/87 Pulse Oximetry 97 Oxygen Delivery Method Room Air BMI result Body Mass Index 23.7 Const Other: the patient is a pleasant older man who is awake and alert. He does not seem in respiratory distress. He does not seem obviously acutely ill. HENMT Other: The face is symmetrical. Mucous membranes moist. Eyes Other: No ptosis. General: appearance normal, both eyes and all related structures Neck Neck: Yes no JVD Resp Effort & Inspection: normal respiratory effort Auscultation: clear to auscultation bilaterally Cardio Rate: regular rate Rhythm: regular rhythm Heart sounds: S1 normal heart sound present and S2 normal heart sound present GI Other: abdomen is soft nontender Skin Other: skin is pale and dry. Neuro Other: The patient is awake and alert. Mental status seems clear. No definite cranial nerve deficit or other focal deficit although he seems generally weak. Extrem Other: No peripheral edema Course Course Course Narrative: This is a rapid medical exam performed by Roe Shore NP: Additional HPI, ROS, PE not included below will be deferred to primary provider. Patient is an 83y/o M with hx of myasthenia gravis, Bipolar 1 disorder, ERIK presenting with complaint of worsening dyspnea since this morning. Associated chest pain. Sent from PCP office. Plan: ekg, cxr, labs Medications Administered Generic Name Dose Route Start Last Admin Trade Name Freq PRN Reason Stop Dose Admin Acetaminophen 650 mg 03/18/24 16:12 03/19/24 00:45 Acetaminophen 325 Mg Tablet PO 650 mg Q6H PRN Administration Pain, Mild (Pain Scale 1-3), fever or headache Atorvastatin Calcium 20 mg 03/19/24 09:00 03/19/24 09:36 Atorvastatin Calcium 20 Mg Tablet PO Not Given DAILY [facility] Fluticasone Propionate 2 spray 03/19/24 09:00 03/19/24 10:18 Fluticasone Propionate Nasal 16 Gm [place] NOSTRIL-B Not Given DAILY JEY Heparin Sodium (Porcine) 5,000 unit 03/18/24 18:00 03/19/24 09:34 Heparin Sodium,Porcine 5,000 Unit/Ml Vial SUBCUT 5,000 unit Q8H JEY Administration Immune Globulin 30 gm in 300 mls @ 41 mls/hr 03/18/24 16:00 03/19/24 00:13 Gammagard 10% IV 03/22/24 23:20 Infused Q24H JEY Infusion As Directed Dextrose/Sodium Chloride 1,000 mls @ 80 mls/hr 03/18/24 17:30 03/19/24 09:12 D5ns IVCONT 80 mls/hr .[id number] JEY Administration Lamotrigine 100 mg 03/19/24 00:20 03/19/24 00:45 Lamotrigine 100 Mg Tablet PO 100 mg BEDTIME JEY Administration Levothyroxine Sodium 175 mcg 03/19/24 06:30 03/19/24 09:54 Levothyroxine Sodium 175 Mcg Tablet PO 175 mcg DAILY@0630 JEY Administration [place] Carbonate 900 mg 03/19/24 00:20 03/19/24 00:44 [place] Carbonate Er 450 Mg Tablet.Er PO 900 mg BEDTIME JEY Administration Memantine 10 mg 03/19/24 00:20 03/19/24 09:34 Memantine Hcl 10 Mg Tablet PO 10 mg BID JEY Administration Mycophenolate Mofetil 500 mg 03/19/24 00:20 03/19/24 09:54 Mycophenolate Mofetil 250 Mg Capsule PO 500 mg BID JEY Administration Omeprazole 20 mg 03/19/24 06:30 03/19/24 05:53 Omeprazole 20 Mg Capsule.Dr PO 20 mg DAILY@0630 JEY Administration Prednisone 20 mg 03/19/24 09:00 03/19/24 09:36 Prednisone 20 Mg Tablet PO 20 mg DAILY JEY Administration Pyridostigmine [place] 60 mg 03/19/24 00:20 03/19/24 09:55 Pyridostigmine [place] 60 Mg Tablet PO 60 mg TID JEY Administration Quetiapine Fumarate 200 mg 03/19/24 00:20 03/19/24 00:45 Quetiapine Fumarate 200 Mg Tablet PO 200 mg BEDTIME JEY Administration Sertraline HCl 25 mg 03/19/24 09:00 03/19/24 09:34 Sertraline Hcl 25 Mg Tablet PO 25 mg DAILY JEY Administration Sodium Chloride 3 ml 03/19/24 00:00 03/19/24 09:12 0.9 % Sodium Chloride Flush 3 Ml Syringe IVFLUSH 3 ml QSHIFT JEY Administration Medical Decision Making Medical Decision Making [facility] Narrative: the patient is an 83-year-old male with myasthenia gravis who was sent to the emergency room by his neurologist out of concern about possibly increasing weakness and increasing sense of shortness of breath. The patient is the obviously severely ill. An NIF is -60. Dr. Juarez recommended that the patient be treated with 400 mg of IV IG daily for 5 days. I spoke to the pharmacist for assistance in ordering this medication. The patient will be admitted to the hospitalist service. Lab Data 03/18/24 11:44 03/18/24 11:45 Labs: Lab Results 03/18/24 03/18/24 Range/Units 11:44 11:45 WBC 14.3 H (4.8-10.8) X10*3/uL RBC 3.98 L (4.60-5.80) X10*6/uL Hgb 12.7 L (14.0-18.0) g/dl Hct 39.3 L (42.0-52.0) % MCV 98.7 H (80.0-98.0) fL MCH 31.9 (27.0-33.0) pg MCHC 32.3 (31.0-36.0) g/dl RDW 13.9 (11.0-16.0) % Plt Count 233 (160-400) X10*3/uL MPV 8.8 L (9.4-12.4) fL Immature Gran % (Auto) 1.4 H (0.0-0.4) % Neut % (Auto) 88.5 H (45-73) % Lymph % (Auto) 4.6 L (20-40) % [place] % (Auto) 4.6 (2-11) % Eos % (Auto) 0.7 (0-4) % Baso % (Auto) 0.2 (0-2) % Lymph # (Auto) 0.7 L (1.2-4.9) X10*3/uL [place] # (Auto) 0.7 (0.1-1.2) X10*3/uL Eos # (Auto) 0.1 (0.0-0.4) X10*3/uL Baso # (Auto) 0.0 (0.0-0.2) X10*3/uL Abs Immat Gran (auto) 0.20 H (0.00-0.03) X10*3/uL Absolute Neuts (auto) 12.6 H (2.0-8.3) x10*3/uL Absolute Nucleated RBC 0.000 (0.0-0.012) X10*3/uL Nucleated RBC % (auto) 0.0 (0.0-0.2) /100WBC PT 11.6 (10.9-12.4) SEC INR 1.0 (0.9-1.1) Sodium 144 (135-145) mmol/L Potassium 3.6 (3.3-5.1) mmol/L Chloride 109 H (96-108) mmol/L Carbon Dioxide 28 (22-29) mmol/L Anion Gap 11 L (12-20) BUN 23 H (9-16) mg/dL Creatinine 1.39 (0.5-1.4) mg/dL Estim Creat Clear Calc 45.9 Estimated GFR 49 Random Glucose 98 (60-115) mg/dL Calcium 10.1 (8.4-10.2) mg/dL Total Bilirubin 0.4 (0.0-1.0) mg/dL AST 29 (5-37) U/L ALT 39 (0-40) U/L Alkaline Phosphatase 89 (39-117) U/L Troponin I High Sens 11.4 (<3.5-35.0) ng/L B-Natriuretic Peptide 51 (<100) pg/mL Total Protein 6.5 (6.5-8.0) g/dL Albumin 3.9 (3.5-5.0) g/dL Influenza Type A (PCR) NEGATIVE (Negative) Influenza Type B (PCR) NEGATIVE (Negative) RSV RNA Qual (PCR) NEGATIVE (Negative) SARS-CoV-2 RNA (RT-PCR) NEGATIVE (Negative) Discharge Plan Discharge Clinical Impression: Myasthenia gravis with acute exacerbation Patient Disposition: Admitted As Inpatient
--- NOTE | 2024-03-18 11:10 | ECG_ITS ---
Test Reason : CHEST PAIN Blood Pressure : / mmHG Vent. Rate : 066 BPM Atrial Rate : 066 BPM P-R Int : 144 ms QRS Dur : 096 ms QT Int : 396 ms P-R-T Axes : -17 133 002 degrees QTc Int : 415 ms Normal sinus rhythm Left posterior fascicular block Abnormal ECG No previous ECGs available Referred By: Tania Shore Electronically Signed By:BRUNILDA RICHARD MD
[2024-03-18 11:49] LABS: MANUAL DIFF FLAG NO
[2024-03-18 11:51] LABS: Basophils Percent Auto 0.2 % (0-2); Eosinophils Absolute Auto 0.1 X10*3/uL (0.0-0.4); Eosinophils Percent Auto 0.7 % (0-4); Hematocrit 39.3 % (42.0-52.0); Hemoglobin 12.7 g/dl (14.0-18.0); Imm Gran Pct Auto 1.4 % (0.0-0.4); Lymphocytes Absolute Auto 0.7 X10*3/uL (1.2-4.9); Lymphocytes Percent Auto 4.6 % (20-40); Mean Corpuscular HGB Conc 32.3 g/dl (31.0-36.0); Mean Corpuscular Hemoglobin 31.9 pg (27.0-33.0); Mean Corpuscular Volume 98.7 fL (80.0-98.0); Mean Platelet Volume 8.8 fL (9.4-12.4); Monocytes Absolute Auto 0.7 X10*3/uL (0.1-1.2); Monocytes Percent Auto 4.6 % (2-11); Neutrophils Absolute Auto 12.6 x10*3/uL (2.0-8.3); Neutrophils Percent Auto 88.5 % (45-73); Platelet Count 233 X10*3/uL (160-400); Red Blood Count 3.98 X10*6/uL (4.60-5.80); Red Cell Distribution Width 13.9 % (11.0-16.0); White Blood Count 14.3 X10*3/uL (4.8-10.8)
[2024-03-18 12:03] LABS: Prothrombin Time 11.6 SEC (10.9-12.4)
[2024-03-18 12:06] LABS: Alanine Aminotransferase 39 U/L (0-40); Albumin Level 3.9 g/dL (3.5-5.0); Alkaline Phosphatase 89 U/L (39-117); Anion Gap 11 (12-20); Aspartate Amino Transferase 29 U/L (5-37); Bilirubin Total 0.4 mg/dL (0.0-1.0); Blood Urea Nitrogen 23 mg/dL (9-16); Calcium 10.1 mg/dL (8.4-10.2); Carbon Dioxide 28 mmol/L (22-29); Chloride 109 mmol/L (96-108); Creatinine Clr Calc Pharmacy 45.9; Estimated Glomerular Filt Rate 49; Glucose Random 98 mg/dL (60-115); Potassium 3.6 mmol/L (3.3-5.1); Sodium 144 mmol/L (135-145); Total Protein 6.5 g/dL (6.5-8.0)
[2024-03-18 12:11] LABS: Troponin-I High Sensitivity 11.4 ng/L (<3.5-35.0)
[2024-03-18 12:11] LABS: B Type Natriuretic Peptide 51 pg/mL (<100)
[2024-03-18 12:37] LABS: Influenza A PCR NEGATIVE (Negative); Influenza B PCR NEGATIVE (Negative); Resp Syncy Virus RNA Qual PCR NEGATIVE (Negative); SARS COV2 PCR INHOUSE NEGATIVE (Negative)
--- NOTE | 2024-03-18 15:28 | PC.RT ---
NIF and VC obtained per MD order. -60 cmH20 NIF 2.38 L VC
[2024-03-18] MEDS: Immune Globulin 10% Gammagard 30 GM/300 ML VIAL IV (15:48)
[2024-03-18 15:50] VITALS: BP 138/87; PULSE 64; RESP 16; TEMP 36.9; O2SAT 97
--- NOTE | 2024-03-18 16:54 | P.HPHOSP_ITS ---
History of Present Illness Date of Service: 03/18/24 Attending physician on admission: Tammy Sorensen Chief Complaint: myastenia gravis 83 y/o M with a history of recently diagnosed myasthenia gravis, hx of mood dis ,cognitive imapirment : Patient was recently started on prednisone and pyridostigmine-out patiently started few months back. He came for outpatient appointment has shortness of breath, swallow impairment(unclear if chronic), no diplopia, feels generalized weak. Denies any new complaint of chest pain or abdominal pain or fever or chills or nausea or vomiting or cough or weakness or numbness. wbc : 14.3, bun 23/1.39 , ekg-nsr. cxr:Unremarkable examination. ed physciain d/w neuro: Dr. Juarez's office today for an outpatient appointment and neuro rec-admission for mystenia flare -also started on ivig ,Respiratory therapy has come and seen him and his NIF is -60 and his vital capacity is 2.5 L. Social history: Patient denies any recreation drug use or EtOH use or smoking. Denies any sick contacts or recent travel. Review of Systems 2 Review of Systems: as above. Yes all other systems are reviewed and are negative PMFSH Social History Advance Directives: No Advance Directives Information Provided: Yes Do you have a plan to hurt others: No Plan Meds Allergies Allergy/AdvReac Type Severity Reaction Status Date / Time amoxicillin Allergy Intermediate Rash Verified 03/18/24 11:09 Active Medications: Current Medications Acetaminophen (Acetaminophen 325 Mg Tablet) 650 mg PO Q6H PRN PRN Reason: Pain, Mild (Pain Scale 1-3), fever or headache Calcium Carbonate (Calcium Carbonate 750 Mg Tab.Chew) 750 mg PO Q4H PRN PRN Reason: Heartburn Immune Globulin (Gammagard 10%) 30 gm in 300 mls @ 41 mls/hr IV Q24H JEY Stop: 03/22/24 23:20 Last Admin: 03/18/24 15:48 Dose: 41 mls/hr Magnesium Hydroxide (Milk Of Magnesia 30 Ml Oral.Susp) 30 ml PO DAILY PRN PRN Reason: Constipation Melatonin (Melatonin 3 Mg Tablet) 6 mg PO BEDTIME PRN PRN Reason: Insomnia Sodium Chloride (0.9 % Sodium Chloride Flush 3 Ml Syringe) 3 ml IVFLUSH QSHIFT [facility] Home Medications ?Medication ?Instructions ?Recorded ?Confirmed ?Last Taken ?Type atorvastatin 20 mg tablet 20 mg PO DAILY 07/03/23 02/10/24 Unknown History cyanocobalamin (vitamin B-12) 1,000 mcg IM 07/03/23 02/10/24 Unknown History 1,000 mcg/mL injection solution fluticasone propionate 50 spray intranasal 07/03/23 02/10/24 Unknown History mcg/actuation nasal spray,suspension levothyroxine 175 mcg tablet 175 mcg PO DAILY 07/03/23 02/10/24 Unknown History syringe with needle 3 mL 25 x 5/8 #1 ea 07/03/23 02/10/24 Unknown History (BD Luer-Abdelrahman Syringe) tamsulosin 0.4 mg capsule 0.4 mg PO BEDTIME 07/03/23 02/10/24 Unknown History memantine 10 mg tablet 10 mg PO BID 11/26/23 02/10/24 Unknown History pantoprazole 40 mg tablet,delayed 40 mg PO DAILY 11/26/23 02/10/24 Unknown History release pyridostigmine bromide 60 mg tablet 60 mg PO TID 11/26/23 02/10/24 Unknown History mycophenolate mofetil 500 mg tablet 500 mg PO BID 03/18/24 Unknown History prednisone 20 mg tablet 20 mg PO DAILY 03/18/24 Unknown History Physical Exam 2 Vital Signs and Narrative: Vital Signs: Last Vital Signs Temp 98.4 F 03/18/24 15:50 Pulse 64 03/18/24 15:50 Resp 16 03/18/24 15:50 BP 138/87 03/18/24 15:50 Pulse Ox 97 03/18/24 15:50 O2 Del Method Room Air 03/18/24 15:50 BMI result Body Mass Index 23.7 Appearance: Alert.? Oriented X3.?generalised weak. Eyes: Pupils equal, round and reactive to light.? Sclera nonicteric.?. cvs: rrr, [id number] . res: clear to auscultation ,no rhonchii or wheezing abd: no rebound or guarding ,nt, bs present. ext pulses present , no cyanosis neuro: axo3 , nonfocal. Results Labs 03/18/24 11:44 03/18/24 11:45 Labs: Laboratory Results - last 24 hr 03/18/24 03/18/24 11:44 11:45 MCV 98.7 H MCH 31.9 MCHC 32.3 RDW 13.9 Plt Count 233 MPV 8.8 L Immature Gran % (Auto) 1.4 H Neut % (Auto) 88.5 H Lymph % (Auto) 4.6 L [place] % (Auto) 4.6 Eos % (Auto) 0.7 Baso % (Auto) 0.2 Lymph # (Auto) 0.7 L [place] # (Auto) 0.7 Eos # (Auto) 0.1 Baso # (Auto) 0.0 Abs Immat Gran (auto) 0.20 H Absolute Neuts (auto) 12.6 H Absolute Nucleated RBC 0.000 Nucleated RBC % (auto) 0.0 PT 11.6 INR 1.0 Anion Gap 11 L Estim Creat Clear Calc 45.9 Estimated GFR 49 Random Glucose 98 Calcium 10.1 Total Bilirubin 0.4 AST 29 ALT 39 Alkaline Phosphatase 89 Troponin I High Sens 11.4 B-Natriuretic Peptide 51 Total Protein 6.5 Albumin 3.9 Influenza Type A (PCR) NEGATIVE Influenza Type B (PCR) NEGATIVE RSV RNA Qual (PCR) NEGATIVE SARS-CoV-2 RNA (RT-PCR) NEGATIVE Imaging Radiologist's Impressions: Impressions Chest X-Ray 03/18/24 11:11 IMPRESSION: Unremarkable examination. Electronically signed by: Mendel Jade MD 03/18/2024 04:43 PM [facility] Assessment and Plan (1) Myasthenia gravis with acute exacerbation: Status: Acute Plan 83 y/o M with a history of recently diagnosed myasthenia gravis, hx of mood dis ,cognitive imapirment: Possible myasthenia flare : has sob ,possible swallow impairment moniter VC q4hr continue IVIG daily for 5 days because of increasing weakness. neurochecks , neurology consult ? dysphagia: bedside swallow eval. mood dis: continue home meds once reconcile. dvt prophylax :s/c heparin patient will benefit from at least 2 midnight stays: Considering myasthenia gravis flare-need IVIG and neurchecks , VC monitering and neurology eval Assessment and plan coordination time spent 70 minute, patient is DNR DNI Quality Stroke Does the patient have a stroke diagnosis?: No VTE Prior VTE?: No VTE Risk Level:: Medical - moderate - high VTE Device Contraindication: N/A - Device Ordered VTE Drug Contraindication: N/A - Med Ordered
--- NOTE | 2024-03-18 18:06 | PHA.MEDREC ---
Addendum entered by Scott Minor [facility] 03/18/24 18:45: Med rec reviewed Original Note: Pharmacy Consult ? Medication Reconciliation Pharmacy has completed the medication reconciliation. Spoke with patient and he had a list from home I was able to use to confirm the medications. The patient confirmed he is taking the [place] 450mg tab taking 2 tabs at bedtime now. He confirmed he is taking the Prenisone 20mg tab once daily instead of twice daily now. He confirmed his Vitamin B-12 once a month injection but was not able to give me the exact date he last got it, he states maybe 3 weeks ago and i'm due for it in about a week or 2 . He confirmed he took his morning medications this morning.
[2024-03-18] MEDS: Dextrose 5 % and 0.9 % NaCl 1,000 ML 80 ML IVCONT (18:35)
--- NOTE | 2024-03-18 18:56 | PC.NURSE ---
patient sitting up eating dinner. patient ambulates standby assist with personal cane
[2024-03-18 19:09] VITALS: BP 134/67; PULSE 63; RESP 18; TEMP 36.7; O2SAT 97
[2024-03-18] MEDS: Heparin Sodium,Porcine 5,000 UNIT/ML VIAL 5000 UNIT SUBCUT (19:30)
--- NOTE | 2024-03-18 19:56 | PC.RT ---
FVC and NIP per MD order. FVC 2.4L and NIF -40. 3 attempts on both, did very well.
--- NOTE | 2024-03-18 20:41 | PC.NURSE ---
pt ambulated well with cane to the bathroom, standby assist for safety
[2024-03-18 23:03] VITALS: BP 162/95; PULSE 63; RESP 18; TEMP 36.6; O2SAT 97
--- OUTSIDE RECORDS SUMMARY | 2024-03-19 00:30 | XMS_ITS ---
Author Organization [facility], Address [address] [place] [address] Care Team Providers Care Clinical Research Director Name Role Phone Gretta Stevens Unavailable [phone] ALLERGIES, ADVERSE REACTIONS, ALERTS None MEDICATIONS Medication Code Code System Start Date Stop Date Route Dosage Directions Fill Instructions ALPRAZOLAM 0.25MG TAB RxNorm ATORVASTATIN 20MG TABLETS RxNorm 3 1 LAMOTRIGINE 150MG TABLETS RxNorm 3 LEVOTHYROXINE 0.175MG (175MCG) TABS RxNorm 3 1 LITHIUM CARB 300MG ER TAB RxNorm OMEPRAZOLE 20MG CAPSULES RxNorm 11/09/2022 1 QUETIAPINE 200MG TAB RxNorm sertraline 0 RxNorm oral pantoprazole sodium RxNorm pyridostigmine bromide RxNorm 4 1 prednisolone 0 RxNorm oral PROBLEMS Problem Name Code Code System Start Date End Date [facility] Bipolar disorder, unspecified 61934812 [facility] Active Hypothyroidism, unspecified 00604222 [facility] Active Other hyperlipidemia 444974785 [facility] Active Gastro-esophageal reflux disease 504591723 [facility] Active Repeated falls 116893610 [facility] 12/16/2023 Activ e Nondisplaced fracture of head of right radius, initial encounter for closed fracture 43879137668734806 [facility] 12/16/2023 Active Sprain of unspecified ligament of right ankle, initial encounter 17310834337904566 [facility] 12/16/2023 Activ e Unspecified sprain of right foot, initial encounter 99289632042416920 [facility] 12/16/2023 Active Nondisplaced fracture of lateral malleolus of right fibula, initial encounter for closed fracture 29666617898075443 [facility] 12/16/2023 Act hilaria Myasthenia gravis 86915572 [facility] Ac tive Unspecified hearing loss, bilateral 24515438 [facility] 01/27/2024 Active ENCOUNTERS Encounter Diagnosis Code Code System Date Stat us Contusion of right elbow, in itial encounter 14875008816509423 [facility] 12/16/2023 Active Contusion of right hip, init ial encounter 64260309231860441 [facility] 12/16/2023 Active Repeated falls 331998014 [facility] 12/16/2023 Active Sprain of unspecified ligame nt of right ankle, initial encounter 63970601878945658 [facility] 12/16/2023 Activ e Unspecified sprain of right foot, [facility] Active Nondisplaced fracture of lat eral malleolus of right fibula, initial encounter for closed fracture 00261657413335129 [facility] 12/16/2023 Active IMMUNIZATIONS * None VITAL SIGNS Code Code System Vitals Name Date Value and Un its 8462-4 [facility] Blood Pressure-Diastolic 12/16/2023 84 mmHg 8480-6 [facility] Blood Pressure-Systolic 12/16/2023 1 45 mmHg 8867-4 [facility] Heart Rate 12/16/2023 72 /min 9279-1 [facility] Respiratory Rate 12/16/2023 18 /min 8310-5 [facility] Body Temperature 12/16/2023 98.4 F 41200-3 inc Oxygen Saturation 12/16/2023 95 % SOCIAL HISTORY * None PROCEDURES Code Code System Procedure Date Status Notes L4361 Cpt4 Pneumatic Ankle Walker, Med (Mens 6.5-10 / Womens 7.5-11) 12/16/2023 completed MEDICAL EQUIPMENT * Patient has no history of implantable devices ASSESSMENT * None TREATMENT PLAN Type Description Date APPOINTMENT If not feeling kemar r in 3 day(s), please see your primary care physician. If you do not have a primary care physician, please return to this clinic. 12/16/2023 Lab Tests None GOALS * None HEALTH CONCERNS * No Health Concerns FUNCTIONAL AND COGNITIVE STATUS * None CONSULTATION NOTES * None DISCHARGE SUMMARY NOTES * None HISTORY AND PHYSICAL NOTES * None IMAGING NOTES * /Eastern History: Pain-Right Foot: The patient presents with a chief complaint of pain of the right ankle and right foot since 5 days ago. The patient also reports swelling as an abnormal symptom related to the complaint.ExamThree views of the Foot rightComparisonNone provided. FindingsSoft tissue swelling on the dorsum of the footNo acute fractureThere is no radio opaque foreign body appreciated. No significant degenerative changes are identified. IMPRESSION:1. Soft tissue swelling on the dorsum of thefoot2. No acute fracture * /Eastern History: Pain-Right Foot: The patient presents with a chief complaint of pain of the right ankle and right foot since 5 days ago. The patient also reports swelling as an abnormal symptom related to the complaint.ExamDescription: Three views of the ankle right.Comparison:None provided. FindingsSoft tissue swelling around the ankleThere is a nondisplaced fracture at the tip of the lateral malleolusAlignment of the ankle mortise is normal. IMPRESSION:1. Soft tissue swelling around the ankle2. There is a nondisplaced fracture at the tip of the lateral malleolus * History: Pain-Right Foot: The patient presents with a chief complaint of pain of the right ankle and right foot since 5 days ago. The patient also reports swelling as an abnormal symptom related to the complaint.ExamMultiple views of the Elbow rightComparisonNone provided. FindingsThe soft tissues are unremarkableThere is no fracture or other acute osseous abnormality The fat pads are unremarkable, without evidence for effusion. IMPRESSION:No evidence for fracture or other acute abnormality. /Eastern * /Eastern History: Pain-Right Foot: The patient presents with a chief complaint of pain of the right ankle and right foot since 5 days ago. The patient also reports swelling as an abnormal symptom related to the complaint.EXAM:CR Pelvis and Hip, right, 3 View.CLINICAL HISTORY:Pain-Right Foot: The patient presents with a chief complaint of pain of the right ankle and right foot since 5 days ago. The patientalso reports swelling as an abnormal symptom related to the complaint. COMPARISON:None provided. FINDINGS:BONES:No acute fracture or aggressive appearing osseous lesion.JOINTS:Mild degenerative changes in both hipsSOFT TISSUES:The soft tissues are unremarkable.IMPRESSION:No acute osseous abnormality evident on views of the pelvis and right hip. No acute fracture or dislocation. LABORATORY REPORT NARRATIVE NOTES * None PATHOLOGY REPORT NARRATIVE NOTES * None PROGRESS NOTES * None
--- OUTSIDE RECORDS SUMMARY | 2024-03-19 00:30 | XMS_ITS ---
Author Organization [facility], Address [address] [facility] [place] [address] Care Team Providers Care Journeyman Painter Name Role Phone Valerie Iverson Unavailable [phone] ALLERGIES, ADVERSE REACTIONS, ALERTS None MEDICATIONS Medication [...] Code Code System Start Date End Date [facility] Bipolar disorder, unspecified 18450085 [facility] Active Hypothyroidism, unspecified 07884606 [facility] Active Other hyperlipidemia 649823788 [facility] Active Gastro-esophageal reflux disease 618648397 [facility] Active Repeated falls 232619580 [facility] 12/16/2023 Activ e Nondisplaced fracture of head of right radius, initial encounter for closed fracture 28923155232440757 [facility] 12/16/2023 Active Sprain of unspecified ligament of right ankle, initial encounter 96082403752246246 [facility] 12/16/2023 Activ e Unspecified sprain of right foot, initial encounter 13152667958153368 [facility] 12/16/2023 Active Nondisplaced fracture of lateral malleolus of right fibula, initial encounter for closed fracture 06280661590671442 [facility] 12/16/2023 Act hilaria Myasthenia gravis 26951612 [facility] Ac tive Unspecified hearing loss, bilateral 62858108 [facility] 01/27/2024 Active ENCOUNTERS Encounter Diagnosis Code Code System Date Stat us Foreign body in right ear, initial encounter 11559403 [facility] 03/06/2023 Active IMMUNIZATIONS * None VITAL SIGNS Code Code System Vitals Name Date Value and Un its 8462-4 [facility] Blood Pressure-Diastolic 03/06/2023 84 mmHg 8480-6 [facility] Blood Pressure-Systolic 03/06/2023 1 78 mmHg 8867-4 [facility] Heart Rate 03/06/2023 80 /min 9279-1 [facility] Respiratory Rate 03/06/2023 16 /min 8310-5 [facility] Body Temperature 03/06/2023 97.6 F 17595-4 [facility] Oxygen Saturation 03/06/2023 95 % SOCIAL HISTORY * None PROCEDURES Code Code System Procedure Date Status Notes 13366 Cpt4 Foreign Body Rem oval - Ear Canal 03/06/2023 completed Andre Peck - 03/06/2023 right external ear foreign body removal; plastic was completely removed using forceps, no complications, auditory acuity intact, patient tolerated procedure well. MEDICAL EQUIPMENT * Patient has no history of implantable devices ASSESSMENT Assessment Foreign body has been remove d without difficulty. Return as needed. TREATMENT PLAN Type Description Date APPOINTMENT If not feeling kemar r in 3 day(s), please see your primary care physician. If you do not have a primary care physician, please return to this clinic. 03/06/2023 Lab Tests None GOALS * None HEALTH CONCERNS * No Health Concerns FUNCTIONAL AND COGNITIVE STATUS * None CONSULTATION NOTES * None DISCHARGE SUMMARY NOTES * None HISTORY AND PHYSICAL NOTES * None IMAGING NOTES * None LABORATORY REPORT NARRATIVE NOTES * None PATHOLOGY REPORT NARRATIVE NOTES * None PROGRESS NOTES * None
--- OUTSIDE RECORDS SUMMARY | 2024-03-19 00:30 | XMS_ITS ---
Author Organization [facility], Address [address] [facility] [place] [address] Care Team Providers Care Staff Software Engineer Name Role Phone VenkateshBelleNeel Bonilla Jr [facility] [phone] ALLERGIES, ADVERSE REACTIONS, ALERTS None MEDICATIONS Medication [...] Code Code System Start Date End Date [facility] Bipolar disorder, unspecified 71813560 [facility] Active Hypothyroidism, unspecified 21253376 [facility] Active Other hyperlipidemia 404821915 [facility] Active Gastro-esophageal reflux disease 757838115 [facility] Active Repeated falls 656262096 [facility] 12/16/2023 Activ e Nondisplaced fracture of head of right radius, initial encounter for closed fracture 41028619683963314 [facility] 12/16/2023 Active Sprain of unspecified ligament of right ankle, initial encounter 10202653749332172 [facility] 12/16/2023 Activ e Unspecified sprain of right foot, initial encounter 02396377337134238 [facility] 12/16/2023 Active Nondisplaced fracture of lateral malleolus of right fibula, initial encounter for closed fracture 44881699056518798 [facility] 12/16/2023 Act hilaria Myasthenia gravis 16035858 [facility] Ac tive Unspecified hearing loss, bilateral 67718500 [facility] 01/27/2024 Active ENCOUNTERS Encounter Diagnosis Code Code System Date Stat us Unspecified hearing loss, bilateral 42013245 [facility] 01/27/2024 Active IMMUNIZATIONS * None VITAL SIGNS Code Code System Vitals Name Date Value and Un its 8462-4 [facility] Blood Pressure-Diastolic 01/27/2024 73 mmHg 8480-6 [facility] Blood Pressure-Systolic 01/27/2024 1 36 mmHg 8867-4 [facility] Heart Rate 01/27/2024 84 /min 9279-1 [facility] Respiratory Rate 01/27/2024 18 /min 8310-5 inc Body Temperature 01/27/2024 98.5 F 52911-9 [facility] Oxygen Saturation 01/27/2024 96 % SOCIAL HISTORY * None PROCEDURES * None MEDICAL EQUIPMENT * Patient has no history of implantable devices ASSESSMENT * None TREATMENT PLAN Type Description Date APPOINTMENT If not feeling kemar r in 3 day(s), please see your primary care physician. If you do not have a primary care physician, please return to this clinic. 01/27/2024 Lab Tests None GOALS * None HEALTH CONCERNS * No Health Concerns FUNCTIONAL AND COGNITIVE STATUS * None CONSULTATION NOTES * None DISCHARGE SUMMARY NOTES * None HISTORY AND PHYSICAL NOTES * None IMAGING NOTES * None LABORATORY REPORT NARRATIVE NOTES * None PATHOLOGY REPORT NARRATIVE NOTES * None PROGRESS NOTES * None
[2024-03-19] MEDS: Lithium Carbonate ER 450 MG TABLET.ER 900 MG PO ×2 (00:44→22:00)
[2024-03-19] MEDS: Memantine HCl 10 MG TABLET PO ×3 (00:44→22:00)
[2024-03-19] MEDS: lamoTRIgine 100 MG TABLET PO ×2 (00:45→21:59)
[2024-03-19] MEDS: Acetaminophen 325 MG TABLET 650 MG PO (00:45)
[2024-03-19] MEDS: QUEtiapine Fumarate 200 MG TABLET PO ×2 (00:45→21:59)
--- OUTSIDE RECORDS SUMMARY | 2024-03-19 02:48 | XMS_ITS ---
Author Organization [facility], Address [address] [place] [address] Care Team Providers Care Scroll Assembler Name Role Phone Gretta Stevens Unavailable [phone] ALLERGIES, ADVERSE REACTIONS, ALERTS None MEDICATIONS Medication [...] Code Code System Start Date End Date [facility] Bipolar disorder, unspecified 93273970 [facility] Active Hypothyroidism, unspecified 76244534 [facility] Active Other hyperlipidemia 818980414 [facility] Active Gastro-esophageal reflux disease 157723920 [facility] Active Repeated falls 529215544 [facility] 12/16/2023 Activ e Nondisplaced fracture of head of right radius, initial encounter for closed fracture 60597803030354616 [facility] 12/16/2023 Active Sprain of unspecified ligament of right ankle, initial encounter 82123644660856149 [facility] 12/16/2023 Activ e Unspecified sprain of right foot, initial encounter 72420103183826522 [facility] 12/16/2023 Active Nondisplaced fracture of lateral malleolus of right fibula, initial encounter for closed fracture 18559931558306135 [facility] 12/16/2023 Act hilaria Myasthenia gravis 26423469 [facility] Ac tive Unspecified hearing loss, bilateral 21778899 [facility] 01/27/2024 Active ENCOUNTERS Encounter Diagnosis Code Code System Date Stat us Contusion of right elbow, in itial encounter 06555756722211335 [facility] 12/16/2023 Active Contusion of right hip, init ial encounter 95379333685580262 [facility] 12/16/2023 Active Repeated falls 095188332 [facility] 12/16/2023 Active Sprain of unspecified ligame nt of right ankle, initial encounter 93385742832620264 [facility] 12/16/2023 Activ e Unspecified sprain of right foot, [facility]23039[facility] Active Nondisplaced fracture of lat eral malleolus of right fibula, initial encounter for closed fracture 89888283331309659 [facility] 12/16/2023 Active IMMUNIZATIONS * None VITAL SIGNS Code Code System Vitals Name Date Value and Un its 8462-4 [facility] Blood Pressure-Diastolic 12/16/2023 84 mmHg 8480-6 [facility] Blood Pressure-Systolic 12/16/2023 1 45 mmHg 8867-4 [facility] Heart Rate 12/16/2023 72 /min 9279-1 [facility] Respiratory Rate 12/16/2023 18 /min 8310-5 [facility] Body Temperature 12/16/2023 98.4 F 16465-2 inc Oxygen Saturation 12/16/2023 95 % SOCIAL [...]
--- OUTSIDE RECORDS SUMMARY | 2024-03-19 02:48 | XMS_ITS ---
Author Organization [facility], Address [address] [place] [address] Care Team Providers Care First Crusher Name Role Phone Valerie Iverson Unavailable [phone] ALLERGIES, ADVERSE REACTIONS, ALERTS None MEDICATIONS Medication [...] Code Code System Start Date End Date [facility] Bipolar disorder, unspecified 18240150 [facility] Active Hypothyroidism, unspecified 28409881 [facility] Active Other hyperlipidemia 979370904 [facility] Active Gastro-esophageal reflux disease 172960640 [facility] Active Repeated falls 445804262 [facility] 12/16/2023 Activ e Nondisplaced fracture of head of right radius, initial encounter for closed fracture 27681636545026144 [facility] 12/16/2023 Active Sprain of unspecified ligament of right ankle, initial encounter 61134168674647083 [facility] 12/16/2023 Activ e Unspecified sprain of right foot, initial encounter 54209751012044232 [facility] 12/16/2023 Active Nondisplaced fracture of lateral malleolus of right fibula, initial encounter for closed fracture 43137242364914404 [facility] 12/16/2023 Act hilaria Myasthenia gravis 97188409 [facility] Ac tive Unspecified hearing loss, bilateral 00115663 [facility] 01/27/2024 Active ENCOUNTERS Encounter Diagnosis Code Code System Date Stat us Foreign body in right ear, initial encounter 40629213 [facility] 03/06/2023 Active IMMUNIZATIONS * None VITAL SIGNS Code Code System Vitals Name Date Value and Un its 8462-4 [facility] Blood Pressure-Diastolic 03/06/2023 84 mmHg 8480-6 [facility] Blood Pressure-Systolic 03/06/2023 1 78 mmHg 8867-4 [facility] Heart Rate 03/06/2023 80 /min 9279-1 [facility] Respiratory Rate 03/06/2023 16 /min 8310-5 [facility] Body Temperature 03/06/2023 97.6 F 43780-9 [facility] Oxygen Saturation 03/06/2023 95 % SOCIAL HISTORY * None PROCEDURES Code Code System Procedure Date Status Notes 66902 Cpt4 Foreign Body Rem oval - Ear [...]
--- OUTSIDE RECORDS SUMMARY | 2024-03-19 02:48 | XMS_ITS ---
Author Organization [facility], Address [address] [place] [address] Care Team Providers Care Director Of Epidemiology Name Role Phone VenkateshBelleNeel Bonilla Jr [facility] ALLERGIES, ADVERSE REACTIONS, ALERTS None MEDICATIONS Medication [...] Code Code System Start Date End Date [facility] Bipolar disorder, unspecified 80999734 [facility] Active Hypothyroidism, unspecified 70079440 [facility] Active Other hyperlipidemia 253325962 [facility] Active Gastro-esophageal reflux disease 910091899 [facility] Active Repeated falls 913232134 [facility] 12/16/2023 Activ e Nondisplaced fracture of head of right radius, initial encounter for closed fracture 61209299414529335 [facility] 12/16/2023 Active Sprain of unspecified ligament of right ankle, initial encounter 40185593777395411 [facility] 12/16/2023 Activ e Unspecified sprain of right foot, initial encounter 58029279793357532 [facility] 12/16/2023 Active Nondisplaced fracture of lateral malleolus of right fibula, initial encounter for closed fracture 48279112270049383 [facility] 12/16/2023 Act hilaria Myasthenia gravis 69950944 [facility] Ac tive Unspecified hearing loss, bilateral 04944458 [facility] 01/27/2024 Active ENCOUNTERS Encounter Diagnosis Code Code System Date Stat us Unspecified hearing loss, bilateral 66359176 [facility] 01/27/2024 Active IMMUNIZATIONS * None VITAL SIGNS Code Code System Vitals Name Date Value and Un its 8462-4 [facility] Blood Pressure-Diastolic 01/27/2024 73 mmHg 8480-6 [facility] Blood Pressure-Systolic 01/27/2024 1 36 mmHg 8867-4 [facility] Heart Rate 01/27/2024 84 /min 9279-1 [facility] Respiratory Rate 01/27/2024 18 /min 8310-5 inc Body Temperature 01/27/2024 98.5 F 85977-7 [facility] Oxygen Saturation 01/27/2024 96 % SOCIAL HISTORY [...]
--- OUTSIDE RECORDS SUMMARY | 2024-03-19 02:49 | XMS_ITS ---
Author Organization [facility], Address [address] [facility] [place] [address] Care Team Providers Care Block Setter Gypsum Name Role Phone VenkateshBelleNeel Bonilla Jr [facility] ALLERGIES, ADVERSE REACTIONS, ALERTS None MEDICATIONS [...] Code Code System Start Date End Date [facility] Bipolar disorder, unspecified 76912994 [facility] Active Hypothyroidism, unspecified 64626367 [facility] Active Other hyperlipidemia 733319644 [facility] Active Gastro-esophageal reflux disease 276474153 [facility] Active Repeated falls 140766061 [facility] 12/16/2023 Activ e Nondisplaced fracture of head of right radius, initial encounter for closed fracture 48217622661473194 [facility] 12/16/2023 Active Sprain of unspecified ligament of right ankle, initial encounter 28762081614985130 [facility] 12/16/2023 Activ e Unspecified sprain of right foot, initial encounter 41159457798022529 [facility] 12/16/2023 Active Nondisplaced fracture of lateral malleolus of right fibula, initial encounter for closed fracture 28464017909369461 [facility] 12/16/2023 Act hilaria Myasthenia gravis 21197545 [facility] Ac tive Unspecified hearing loss, bilateral 50642458 [facility] 01/27/2024 Active ENCOUNTERS Encounter Diagnosis Code Code System Date Stat us Unspecified hearing loss, bilateral 27779930 [facility] 01/27/2024 Active IMMUNIZATIONS * None VITAL SIGNS Code Code System Vitals Name Date Value and Un its 8462-4 [facility] Blood Pressure-Diastolic 01/27/2024 73 mmHg 8480-6 [facility] Blood Pressure-Systolic 01/27/2024 1 36 mmHg 8867-4 [facility] Heart Rate 01/27/2024 84 /min 9279-1 [facility] Respiratory Rate 01/27/2024 18 /min 8310-5 inc Body Temperature 01/27/2024 98.5 F 05474-7 [facility] Oxygen Saturation 01/27/2024 96 % SOCIAL HISTORY [...]
--- OUTSIDE RECORDS SUMMARY | 2024-03-19 02:49 | XMS_ITS ---
Author Organization [facility], Address [address] [place] [address] Care Team Providers Care Legal Examiner Name Role Phone Gretta Stevens Unavailable [phone] ALLERGIES, ADVERSE REACTIONS, ALERTS None MEDICATIONS Medication [...] Code Code System Start Date End Date [facility] Bipolar disorder, unspecified 88636685 [facility] Active Hypothyroidism, unspecified 78982496 [facility] Active Other hyperlipidemia 061109753 [facility] Active Gastro-esophageal reflux disease 903153258 [facility] Active Repeated falls 182974804 [facility] 12/16/2023 Activ e Nondisplaced fracture of head of right radius, initial encounter for closed fracture 84004623842161495 [facility] 12/16/2023 Active Sprain of unspecified ligament of right ankle, initial encounter 70630559448092520 [facility] 12/16/2023 Activ e Unspecified sprain of right foot, initial encounter 82449884494460530 [facility] 12/16/2023 Active Nondisplaced fracture of lateral malleolus of right fibula, initial encounter for closed fracture 01434640043357835 [facility] 12/16/2023 Act hilaria Myasthenia gravis 69411007 [facility] Ac tive Unspecified hearing loss, bilateral 09179839 [facility] 01/27/2024 Active ENCOUNTERS Encounter Diagnosis Code Code System Date Stat us Contusion of right elbow, in itial encounter 79588403775036730 [facility] 12/16/2023 Active Contusion of right hip, init ial encounter 00054925653061569 [facility] 12/16/2023 Active Repeated falls 254723505 [facility] 12/16/2023 Active Sprain of unspecified ligame nt of right ankle, initial encounter 99327996025299798 [facility] 12/16/2023 Activ e Unspecified sprain of right foot, [facility]37764[facility] Active Nondisplaced fracture of lat eral malleolus of right fibula, initial encounter for closed fracture 59882731546303599 [facility] 12/16/2023 Active IMMUNIZATIONS * None VITAL SIGNS Code Code System Vitals Name Date Value and Un its 8462-4 [facility] Blood Pressure-Diastolic 12/16/2023 84 mmHg 8480-6 [facility] Blood Pressure-Systolic 12/16/2023 1 45 mmHg 8867-4 [facility] Heart Rate 12/16/2023 72 /min 9279-1 [facility] Respiratory Rate 12/16/2023 18 /min 8310-5 [facility] Body Temperature 12/16/2023 98.4 F 34597-6 inc Oxygen Saturation 12/16/2023 95 % SOCIAL [...]
--- OUTSIDE RECORDS SUMMARY | 2024-03-19 02:49 | XMS_ITS ---
Author Organization [facility], Address [address] [facility] [place] [address] Care Team Providers Care Manager Beauty Name Role Phone Valerie Iverson Unavailable [phone] ALLERGIES, ADVERSE REACTIONS, ALERTS None MEDICATIONS Medication [...] Code Code System Start Date End Date [facility] Bipolar disorder, unspecified 99298484 [facility] Active Hypothyroidism, unspecified 08479019 [facility] Active Other hyperlipidemia 029390243 [facility] Active Gastro-esophageal reflux disease 040215955 [facility] Active Repeated falls 658951261 [facility] 12/16/2023 Activ e Nondisplaced fracture of head of right radius, initial encounter for closed fracture 05381462232520545 [facility] 12/16/2023 Active Sprain of unspecified ligament of right ankle, initial encounter 97854217763671726 [facility] 12/16/2023 Activ e Unspecified sprain of right foot, initial encounter 11788373772975116 [facility] 12/16/2023 Active Nondisplaced fracture of lateral malleolus of right fibula, initial encounter for closed fracture 18995901370423169 [facility] 12/16/2023 Act hilaria Myasthenia gravis 75104816 [facility] Ac tive Unspecified hearing loss, bilateral 53422012 [facility] 01/27/2024 Active ENCOUNTERS Encounter Diagnosis Code Code System Date Stat us Foreign body in right ear, initial encounter 42189452 [facility] 03/06/2023 Active IMMUNIZATIONS * None VITAL SIGNS Code Code System Vitals Name Date Value and Un its 8462-4 [facility] Blood Pressure-Diastolic 03/06/2023 84 mmHg 8480-6 [facility] Blood Pressure-Systolic 03/06/2023 1 78 mmHg 8867-4 [facility] Heart Rate 03/06/2023 80 /min 9279-1 [facility] Respiratory Rate 03/06/2023 16 /min 8310-5 [facility] Body Temperature 03/06/2023 97.6 F 69306-9 [facility] Oxygen Saturation 03/06/2023 95 % SOCIAL HISTORY * None PROCEDURES Code Code System Procedure Date Status Notes 95026 Cpt4 Foreign Body Rem oval - Ear [...]
[2024-03-19] MEDS: Heparin Sodium,Porcine 5,000 UNIT/ML VIAL 5000 UNIT SUBCUT ×3 (02:56→18:03)
[2024-03-19 03:07] VITALS: BP 163/79; PULSE 70; RESP 12; TEMP 36.5; O2SAT 97
--- NOTE | 2024-03-19 04:13 | PC.NURSE ---
pt moved into hospital bed. resting comfortably, no apparent distress. call martini within reach. plan of care ongoing
[2024-03-19 05:51] VITALS: BP 145/68; PULSE 64; RESP 16; O2SAT 96
[2024-03-19] MEDS: Omeprazole 20 MG CAPSULE.DR PO (05:53)
--- NOTE | 2024-03-19 05:54 | PC.NURSE ---
Pt resting in bed, denies pain. Medicated per MAR, pharmacy to be called for 630 medication. Fluids infusing. VSS. Continue to monitor.
[2024-03-19 09:09] VITALS: BP 123/68; PULSE 72; RESP 20; O2SAT 96
[2024-03-19] MEDS: Dextrose 5 % and 0.9 % NaCl 1,000 ML 80 ML IVCONT (09:12)
[2024-03-19] MEDS: 0.9 % Sodium Chloride Flush 3 ML SYRINGE IVFLUSH ×3 (09:12→22:00)
[2024-03-19] MEDS: Sertraline HCL 25 MG TABLET PO (09:34)
[2024-03-19] MEDS: predniSONE 20 MG TABLET PO (09:36)
--- NOTE | 2024-03-19 09:40 | PC.NURSE ---
Missing medications requested from pharmacy.
[2024-03-19] MEDS: Levothyroxine Sodium 175 MCG TABLET PO (09:54)
[2024-03-19] MEDS: mycophenolate mofetiL 250 MG CAPSULE 500 MG PO ×2 (09:54→21:59)
[2024-03-19] MEDS: pyRIDostigmine bromide 60 MG TABLET PO ×2 (09:55→22:00)
--- NOTE | 2024-03-19 10:26 | MHC.CM.PN ---
CM met with Patient at bedside, in the ED and addressed IMM with him (original was given to Patient and a copy will be placed on the chart). Patient lives in a condo with his and he uses a cane to assist with mobility.Patient required no services SERVICES MANAGER and home/self care is the goal. CM has initiated and will follow for dc planning. PCP is Dr. Barrientos and Patient's will transport to home.
--- NOTE | 2024-03-19 10:39 | PC.NURSE ---
Speech therapy at bedside.
[2024-03-19 12:19] VITALS: BP 128/65; PULSE 77; RESP 16; TEMP 37.1; O2SAT 96
--- NOTE | 2024-03-19 14:10 | HO.PM.IMPN ---
Subjective Subjective Date of Service: 03/19/24 Interval History: Myasthenia gravis flare Review of Systems sob somewhat improving no fever or chills Physical Exam Vital Signs: Vital Signs: Last Vital Signs Temp 98.7 F 03/19/24 12:19 Pulse 77 03/19/24 12:19 Resp 16 03/19/24 12:19 BP 128/65 03/19/24 12:19 Pulse Ox 96 03/19/24 12:19 O2 Del Method Room Air 03/19/24 12:19 BMI result Body Mass Index 23.7 Appearance: Alert.? Oriented X3.?generalised weak. cvs: rrr, [id number] . res: air entry fair ,no rales or wheezin abd: no rebound or guarding ,nt, bs present. ext pulses present , no cyanosis neuro: axo3 , nonfocal. Objective Data Active Medications Acetaminophen (Acetaminophen 325 Mg Tablet) 650 mg PO Q6H PRN PRN Reason: Pain, Mild (Pain Scale 1-3), fever or headache Last Admin: 03/19/24 00:45 Dose: 650 mg Documented By: TOD Atorvastatin Calcium (Atorvastatin Calcium 20 Mg Tablet) 20 mg PO DAILY [facility] Last Admin: 03/19/24 09:36 Dose: Not Given Documented By: CINDY Non-Admin Reason: Patient Refused Comments: patient reports he doesn't take this anymore Calcium Carbonate (Calcium Carbonate 750 Mg Tab.Chew) 750 mg PO Q4H PRN PRN Reason: Heartburn Fluticasone Propionate (Fluticasone Propionate Nasal 16 Gm [place]) 2 spray NOSTRIL-B DAILY [facility] Last Admin: 03/19/24 10:18 Dose: Not Given Documented By: CINDY Non-Admin Reason: Med Not Available Heparin Sodium (Porcine) (Heparin Sodium,Porcine 5,000 Unit/Ml Vial) 5,000 unit SUBCUT Q8H [facility] Last Admin: 03/19/24 09:34 Dose: 5,000 unit Documented By: CINDY Immune Globulin (Gammagard 10%) 30 gm in 300 mls @ 41 mls/hr IV Q24H [facility] Stop: 03/22/24 23:20 Last Infusion: 03/19/24 00:13 Dose: Infused Documented By: TOD Dextrose/Sodium Chloride (D5ns) 1,000 mls @ 80 mls/hr IVCONT .[id number] [facility] Last Admin: 03/19/24 09:12 Dose: 80 mls/hr Documented By: CINDY Lamotrigine (Lamotrigine 100 Mg Tablet) 100 mg PO BEDTIME [facility] Last Admin: 03/19/24 00:45 Dose: 100 mg Documented By: OTD Levothyroxine Sodium (Levothyroxine Sodium 175 Mcg Tablet) 175 mcg PO DAILY@0630 [facility] Last Admin: 03/19/24 09:54 Dose: 175 mcg Documented By: CINDY [place] Carbonate ([place] Carbonate Er 450 Mg Tablet.Er) 900 mg PO BEDTIME [facility] Last Admin: 03/19/24 00:44 Dose: 900 mg Documented By: TOD Magnesium Hydroxide (Milk Of Magnesia 30 Ml Oral.Susp) 30 ml PO DAILY PRN PRN Reason: Constipation Melatonin (Melatonin 3 Mg Tablet) 6 mg PO BEDTIME PRN PRN Reason: Insomnia Memantine (Memantine Hcl 10 Mg Tablet) 10 mg PO BID [facility] Last Admin: 03/19/24 09:34 Dose: 10 mg Documented By: CINDY Mycophenolate Mofetil (Mycophenolate Mofetil 250 Mg Capsule) 500 mg PO BID [facility] Last Admin: 03/19/24 09:54 Dose: 500 mg Documented By: CINDY Omeprazole (Omeprazole 20 Mg Capsule.Dr) 20 mg PO DAILY@0630 [facility] Last Admin: 03/19/24 05:53 Dose: 20 mg Documented By: KIARA Prednisone (Prednisone 20 Mg Tablet) 20 mg PO DAILY [facility] Last Admin: 03/19/24 09:36 Dose: 20 mg Documented By: CINDY Pyridostigmine [place] (Pyridostigmine [place] 60 Mg Tablet) 60 mg PO TID [facility] Last Admin: 03/19/24 09:55 Dose: 60 mg Documented By: CINDY Quetiapine Fumarate (Quetiapine Fumarate 200 Mg Tablet) 200 mg PO BEDTIME [facility] Last Admin: 03/19/24 00:45 Dose: 200 mg Documented By: TOD Sertraline HCl (Sertraline Hcl 25 Mg Tablet) 25 mg PO DAILY [facility] Last Admin: 03/19/24 09:34 Dose: 25 mg Documented By: CINDY Sodium Chloride (0.9 % Sodium Chloride Flush 3 Ml Syringe) 3 ml IVFLUSH QSHIFT [facility] Last Admin: 03/19/24 09:12 Dose: 3 ml Documented By: CINDY Labs 03/18/24 11:44 03/18/24 11:45 Assessment and Plan (1) Myasthenia gravis with acute exacerbation: Status: Acute Plan 83 y/o M with a history of recently diagnosed myasthenia gravis, hx of mood dis ,cognitive imapirment: Myasthenia gravis with acute exacerbation : sob improving moniter VC q4hr (nif around 3.8-4 range ) continue IVIG daily for 5 days because of increasing weakness. neurochecks neurology consult ? dysphagia: bedside swallow eval. mood dis: continue home meds once reconcile. dvt prophylax :s/c heparin ongoing need for stay: Considering myasthenia gravis flare-need IVIG and neurchecks , VC monitering and neurology eval Quality Stroke Does the patient have a stroke diagnosis?: No VTE Prior VTE?: No VTE Risk Level:: Medical - moderate - high VTE Device Contraindication: N/A - Device Ordered VTE Drug Contraindication: N/A - Med Ordered
--- NOTE | 2024-03-19 15:39 | PC.NURSE ---
report taken fro previous rn. pt is caox4 and in no distress, denies discomfort. pt ambulates well with pham to restroom. pt is in nsr on monitor and [place] [facility] [place]. ni skin breakdown was noted, pt is in a hospital bed and call martini is within reach. resps are = and nonlabored, skin is wpd.
[2024-03-19 15:42] VITALS: BP 123/72; PULSE 68; RESP 18; O2SAT 98
[2024-03-19] MEDS: Immune Globulin 10% Gammagard 30 GM/300 ML VIAL IV (16:32)
[2024-03-19 18:06] VITALS: BMI 25.3
--- NOTE | 2024-03-19 18:33 | MHC.SL.SWA ---
Speech Pathologist Impression: Risk of Aspiration Due to: Dysphasia Diet Status: Liquid Consistency and Strategies for Safe Swallow: Liquid Intake Recommendation: Thin Liquid Intake Strategies: Double Swallow Solid Food Consistency: Dietary Recommendations: Chopped/Advanced (NDD3) Additional Modifications to Solid Foods: Patient advised to chew food thoroughly, take small bites, alternate with small sips of liquid, double swallow. Recommend patient remain in upright position for 20-30 minutes after meals (hx GERD/Esophagitis) Oral Medication Intake: Whole with Liquid Please contact the pharmacy regarding appropriate crushable or liquid drug formulations that are available whenever modified delivery is recommended. Compensatory Strategies and Precautions to be Taken for Safe Swallow: Sitting Upright (90 deg) Double Swallow Liquids from Cup Liquids from Straw Small Bites and Sips Alternate Liquids/Solids Supervision While Eating and Drinking for Safe Swallow: None Needed Foods to Avoid: Difficult to chew solids, too large pieces of food, hard, dry consistencies, spicy/acidic foods. Swallowing Recommended Treatments: Compens. Strategy Educat. 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 Patient reports globus sensation after swallow of most solids, has had episodes of food and liquid coming back up, when taking liquids after solids to help swallow. Patient also presents with mildly reduced laryngeal elevation on swallow evaluation today. Recommend DOWNGRADE diet to chopped/advanced (NDD3) continue with thin liquids, smaller pills with thin liquids, larger pills crushed if possible in puree, followed by sips of liquid. Recommend medical team consider GI consult re: esophageal issues inpatient v. outpatient (patient reports no hx of GI visit). MD/RD notified of recommendation by secure text, RN inperson, TARIFF COMPILER will follow. Frequency/Duration: Date Range for Service Req: Timeline to reassess: Horticultural Specialty Grower Inside Clinican/Clinical Fellow: No Supervisory Statement: I have reviewed and agree with the student/clinical fellow's documentation: N/A Speech Language Pathologist: Amanda Blanton M.A., CCC-TARIFF COMPILER
[2024-03-19 19:37] VITALS: BP 136/69; PULSE 71; RESP 20; TEMP 36.3; O2SAT 97
[2024-03-20] VITALS (7 sets, daily range): BP systolic 131–154; BP diastolic 70–85; PULSE 63–89; RESP 15–20; TEMP 36.4–36.8; O2SAT 93–99
[2024-03-20] MEDS: Heparin Sodium,Porcine 5,000 UNIT/ML VIAL 5000 UNIT SUBCUT ×3 (01:15→17:17)
[2024-03-20] MEDS: Levothyroxine Sodium 175 MCG TABLET PO (05:58)
[2024-03-20] MEDS: Omeprazole 20 MG CAPSULE.DR PO (05:58)
[2024-03-20 07:07] LABS: Hemoglobin 12.4 g/dl (14.0-18.0); Mean Corpuscular HGB Conc 31.8 g/dl (31.0-36.0); Mean Corpuscular Hemoglobin 31.1 pg (27.0-33.0); Mean Corpuscular Volume 97.7 fL (80.0-98.0); Mean Platelet Volume 9.6 fL (9.4-12.4); Platelet Count 194 X10*3/uL (160-400); Red Blood Count 3.99 X10*6/uL (4.60-5.80); Red Cell Distribution Width 13.2 % (11.0-16.0); White Blood Count 10.4 X10*3/uL (4.8-10.8)
[2024-03-20 07:23] LABS: Anion Gap 11 (12-20); Blood Urea Nitrogen 13 mg/dL (9-16); Calcium 9.3 mg/dL (8.4-10.2); Carbon Dioxide 23 mmol/L (22-29); Chloride 113 mmol/L (96-108); Creatinine Clr Calc Pharmacy 57.5; Estimated Glomerular Filt Rate > 60; Glucose Random 91 mg/dL (60-115); Potassium 3.5 mmol/L (3.3-5.1); Sodium 143 mmol/L (135-145)
[2024-03-20] MEDS: mycophenolate mofetiL 250 MG CAPSULE 500 MG PO ×2 (08:17→21:51)
[2024-03-20] MEDS: Memantine HCl 10 MG TABLET PO ×2 (08:17→21:51)
[2024-03-20] MEDS: predniSONE 20 MG TABLET PO (08:18)
[2024-03-20] MEDS: Sertraline HCL 25 MG TABLET PO (08:18)
[2024-03-20] MEDS: Atorvastatin Calcium 20 MG TABLET PO (08:18)
[2024-03-20] MEDS: 0.9 % Sodium Chloride Flush 3 ML SYRINGE IVFLUSH ×3 (08:18→22:00)
[2024-03-20] MEDS: pyRIDostigmine bromide 60 MG TABLET PO ×3 (08:18→21:51)
[2024-03-20] MEDS: Fluticasone Propionate Nasal 16 GM SPRAY 2 SPRAY NOSTRIL-B (08:18)
[2024-03-20] MEDS: Acetaminophen 325 MG TABLET 650 MG PO (08:21)
--- NOTE | 2024-03-20 11:24 | MHC.CM.PN ---
EMR REVIEWED, PT W/MYASTHENIA GRAVIS FLARE, PT W/SOB, WILL NEED IV OG X 2MORE DAYS W/TOTAL 4 DAYS, NO PLAN FOR DC AT THIS TIME, PLAN CONT'S TO BE HOME NO SERVICES, CM WILL CONT TO FOLLOW DC NEEDS.
--- NOTE | 2024-03-20 11:43 | PM.NEUROCN ---
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 He was treated with prednisone, which did not control his symptoms and his speech and swallowing functions worsened. I saw him the other day in my office and because of his worsening situation send him to emergency room for acute treatment of IVIG. Part of the reason was that due to dementia and also cognitive difficulties of his outpatient treatment was not feasible. In fact it was tried few weeks ago and could not be accomplished because of these issues. I saw him again in emergency room yesterday when he felt much more comfortable after the 1st treatment. Review of Systems Review of Systems: No recent cold or flu-like illness PMFSH Social History Social History Household Members: Spouse Housing: [facility] Do you presently have visiting nurse or other home services: No Patient Tobacco Use Status: Never used Tobacco service: No Meds Allergies Allergy/AdvReac Type Severity Reaction Status Date / Time amoxicillin Allergy Intermediate Rash Verified 03/18/24 11:09 Active Medications: Current Medications Acetaminophen (Acetaminophen 325 Mg Tablet) 650 mg PO Q6H PRN PRN Reason: Pain, Mild (Pain Scale 1-3), fever or headache Last Admin: 03/20/24 08:21 Dose: 650 mg Atorvastatin Calcium (Atorvastatin Calcium 20 Mg Tablet) 20 mg PO DAILY [facility] Last Admin: 03/20/24 08:18 Dose: 20 mg Calcium Carbonate (Calcium Carbonate 750 Mg Tab.Chew) 750 mg PO Q4H PRN PRN Reason: Heartburn Fluticasone Propionate (Fluticasone Propionate Nasal 16 Gm [place]) 2 spray NOSTRIL-B DAILY [facility] Last Admin: 03/20/24 08:18 Dose: 2 spray Heparin Sodium (Porcine) (Heparin Sodium,Porcine 5,000 Unit/Ml Vial) 5,000 unit SUBCUT Q8H [facility] Last Admin: 03/20/24 08:18 Dose: 5,000 unit Immune Globulin (Gammagard 10%) 30 gm in 300 mls @ 41 mls/hr IV Q24H [facility] Stop: 03/22/24 23:20 Last Infusion: 03/19/24 23:58 Dose: Infused Lamotrigine (Lamotrigine 100 Mg Tablet) 100 mg PO BEDTIME [facility] Last Admin: 03/19/24 21:59 Dose: 100 mg Levothyroxine Sodium (Levothyroxine Sodium 175 Mcg Tablet) 175 mcg PO DAILY@0630 [facility] Last Admin: 03/20/24 05:58 Dose: 175 mcg [place] Carbonate ([place] Carbonate Er 450 Mg Tablet.Er) 900 mg PO BEDTIME [facility] Last Admin: 03/19/24 22:00 Dose: 900 mg Magnesium Hydroxide (Milk Of Magnesia 30 Ml Oral.Susp) 30 ml PO DAILY PRN PRN Reason: Constipation Melatonin (Melatonin 3 Mg Tablet) 6 mg PO BEDTIME PRN PRN Reason: Insomnia Memantine (Memantine Hcl 10 Mg Tablet) 10 mg PO BID [facility] Last Admin: 03/20/24 08:17 Dose: 10 mg Mycophenolate Mofetil (Mycophenolate Mofetil 250 Mg Capsule) 500 mg PO BID [facility] Last Admin: 03/20/24 08:17 Dose: 500 mg Omeprazole (Omeprazole 20 Mg Capsule.Dr) 20 mg PO DAILY@0630 [facility] Last Admin: 03/20/24 05:58 Dose: 20 mg Prednisone (Prednisone 20 Mg Tablet) 20 mg PO DAILY [facility] Last Admin: 03/20/24 08:18 Dose: 20 mg Pyridostigmine [place] (Pyridostigmine [place] 60 Mg Tablet) 60 mg PO TID [facility] Last Admin: 03/20/24 08:18 Dose: 60 mg Quetiapine Fumarate (Quetiapine Fumarate 200 Mg Tablet) 200 mg PO BEDTIME [facility] Last Admin: 03/19/24 21:59 Dose: 200 mg Sertraline HCl (Sertraline Hcl 25 Mg Tablet) 25 mg PO DAILY [facility] Last Admin: 03/20/24 08:18 Dose: 25 mg Sodium Chloride (0.9 % Sodium Chloride Flush 3 Ml Syringe) 3 ml IVFLUSH [facility] Last Admin: 03/20/24 08:18 Dose: 3 ml Home Medications ?Medication ?Instructions ?Recorded ?Confirmed ?Last Taken ?Type atorvastatin 20 mg tablet 20 mg PO DAILY 07/03/23 03/18/24 03/18/24 History cyanocobalamin (vitamin B-12) 1,000 mcg IM QMONTH 07/03/23 03/18/24 3 Weeks Ago History 1,000 mcg/mL injection solution ~02/26/24 fluticasone propionate 50 2 spray intranasal DAILY 07/03/23 03/18/24 03/18/24 History mcg/actuation nasal spray,suspension levothyroxine 175 mcg tablet 175 mcg PO DAILY 07/03/23 03/18/24 03/18/24 History syringe with needle 3 mL 25 x 5/8 #1 ea 07/03/23 02/10/24 Unknown History (BD Luer-Abdelrahman Syringe) memantine 10 mg tablet 10 mg PO BID 11/26/23 03/18/24 03/18/24 History pantoprazole 40 mg tablet,delayed 40 mg PO DAILY 11/26/23 03/18/24 03/18/24 History release pyridostigmine bromide 60 mg tablet 60 mg PO TID 11/26/23 03/18/24 03/18/24 History lamotrigine 100 mg tablet 100 mg PO BEDTIME 03/18/24 03/18/24 03/17/24 History (Lamictal) mycophenolate mofetil 500 mg tablet 500 mg PO BID 03/18/24 03/18/24 03/18/24 History prednisone 20 mg tablet 20 mg PO DAILY 03/18/24 03/18/24 03/18/24 History Physical Exam Vital Signs: Vital Signs: Last Vital Signs Temp 98 F 03/20/24 11:02 Pulse 80 03/20/24 11:02 Resp 18 03/20/24 11:02 BP 131/73 03/20/24 11:02 Pulse Ox 94 03/20/24 11:02 O2 Del Method Room Air 03/20/24 11:02 BMI result Body Mass Index 25.3 Neuro: Other: Alert and awake with normal spontaneity of speech fluency comprehension and affect. Speech is mildly slurred. No obvious ptosis or facial weakness. Results Labs 03/20/24 06:14 03/20/24 06:14 Labs: Short CBC 03/20/24 Range/Units 06:14 WBC 10.4 (4.8-10.8) X10*3/uL Hgb 12.4 L (14.0-18.0) g/dl Hct 39.0 L (42.0-52.0) % Plt Count 194 (160-400) X10*3/uL BMP 03/20/24 06:14 Sodium 143 Potassium 3.5 Chloride 113 H Carbon Dioxide 23 BUN 13 Creatinine 1.11 Calcium 9.3 D Assessment and Plan (1) Myasthenia gravis with acute exacerbation: Status: Acute Antibody positive myasthenia gravis exacerbation with underlying bipolar disorder and dementia. My recommendation is to continue 5 days course of 0.4 g per kg daily IVIG. I would also continue prednisone 20 mg a day and mycophenolate 500 mg twice a day. He was taking sertraline 25 mg daily which can be continued. Appropriate DVT prophylaxis is recommended. Procedures Date of Service Date of Service: 03/20/24
--- NOTE | 2024-03-20 12:22 | MHC.SL.SWA ---
Speech Pathologist Impression: Pharyngoesophgeal Dysphagia Dysphasia Diet Status: No Change. Patient tolerating modified diet. Liquid Consistency and Strategies for Safe Swallow: Liquid Intake Recommendation: Thin Liquid Intake Strategies: Small Sips Solid Food Consistency: Dietary Recommendations: Chopped/Advanced (NDD3) Additional Modifications to Solid Foods: Suspicion for esophageal condition, as patient c/o globus sensation and regurgitation of food and liquid. Discussed w/ patient recommendation for G.I. consult (inpatient vs outpatient). Behavioral strategies recommended: small bites, chew food well, alternate with sips of liquid, maintain upright position during PO intake and for at least 45 minutes afterwards. Please re-refer if NURSE PRACTICAL can be of further assistance in patient's care. Oral Medication Intake: Whole with Liquid Please contact the pharmacy regarding appropriate crushable or liquid drug formulations that are available whenever modified delivery is recommended. Compensatory Strategies and Precautions to be Taken for Safe Swallow: Sitting Upright (90 deg) Small Bites and Sips Alternate Liquids/Solids Rate of Ingestion Change Supervision While Eating and Drinking for Safe Swallow: None Needed Foods to Avoid: Difficult to chew solids, too large pieces of food, hard, dry consistencies, spicy/acidic foods. Swallowing Recommended Treatments: Compens. Strategy Educat. 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 Patient reports globus sensation after swallow of most solids, has had episodes of food and liquid coming back up, when taking liquids after solids to help swallow. Patient also presents with mildly reduced laryngeal elevation on swallow evaluation today. Recommend medical team consider GI consult re: esophageal issues inpatient v. outpatient (patient reports no hx of GI visit). Scanner Operator Clinican/Clinical Fellow: No Supervisory Statement: I have reviewed and agree with the student/clinical fellow's documentation: N/A Speech Language Pathologist: Tessa Randall M.A., CCC-NURSE PRACTICAL
--- NOTE | 2024-03-20 14:49 | HO.PM.IMPN ---
Subjective Subjective Date of Service: 03/20/24 Interval History: Myasthenia gravis with acute exacerbation Review of Systems has some sob but improving has some dysphagia Physical Exam Vital Signs: Vital Signs: Last Vital Signs Temp 98 F 03/20/24 11:02 Pulse 80 03/20/24 11:02 Resp 18 03/20/24 11:02 BP 131/73 03/20/24 11:02 Pulse Ox 94 03/20/24 11:02 O2 Del Method Room Air 03/20/24 11:02 BMI result Body Mass Index 25.3 Appearance: Alert.? Oriented X3.?generalised weak. cvs: rrr, [id number] . res: air entry fair ,no rales or wheezin abd: no rebound or guarding ,nt, bs present. ext pulses present , no cyanosis neuro: axo3 , nonfocal. Objective Data Active Medications Acetaminophen (Acetaminophen 325 Mg Tablet) 650 mg PO Q6H PRN PRN Reason: Pain, Mild (Pain Scale 1-3), fever or headache Last Admin: 03/20/24 08:21 Dose: 650 mg Documented By: PAULETTE Atorvastatin Calcium (Atorvastatin Calcium 20 Mg Tablet) 20 mg PO DAILY [facility] Last Admin: 03/20/24 08:18 Dose: 20 mg Documented By: PAULETTE Calcium Carbonate (Calcium Carbonate 750 Mg Tab.Chew) 750 mg PO Q4H PRN PRN Reason: Heartburn Fluticasone Propionate (Fluticasone Propionate Nasal 16 Gm [place]) 2 spray NOSTRIL-B DAILY [facility] Last Admin: 03/20/24 08:18 Dose: 2 spray Documented By: PAULETTE Heparin Sodium (Porcine) (Heparin Sodium,Porcine 5,000 Unit/Ml Vial) 5,000 unit SUBCUT Q8H [facility] Last Admin: 03/20/24 08:18 Dose: 5,000 unit Documented By: PAULETTE Immune Globulin (Gammagard 10%) 30 gm in 300 mls @ 41 mls/hr IV Q24H [facility] Stop: 03/22/24 23:20 Last Infusion: 03/19/24 23:58 Dose: Infused Documented By: KIRILL Lamotrigine (Lamotrigine 100 Mg Tablet) 100 mg PO BEDTIME [facility] Last Admin: 03/19/24 21:59 Dose: 100 mg Documented By: KIRILL Levothyroxine Sodium (Levothyroxine Sodium 175 Mcg Tablet) 175 mcg PO DAILY@0630 [facility] Last Admin: 03/20/24 05:58 Dose: 175 mcg Documented By: KIRILL [place] Carbonate ([place] Carbonate Er 450 Mg Tablet.Er) 900 mg PO BEDTIME [facility] Last Admin: 03/19/24 22:00 Dose: 900 mg Documented By: KIRILL Magnesium Hydroxide (Milk Of Magnesia 30 Ml Oral.Susp) 30 ml PO DAILY PRN PRN Reason: Constipation Melatonin (Melatonin 3 Mg Tablet) 6 mg PO BEDTIME PRN PRN Reason: Insomnia Memantine (Memantine Hcl 10 Mg Tablet) 10 mg PO BID [facility] Last Admin: 03/20/24 08:17 Dose: 10 mg Documented By: PAULETTE Mycophenolate Mofetil (Mycophenolate Mofetil 250 Mg Capsule) 500 mg PO BID [facility] Last Admin: 03/20/24 08:17 Dose: 500 mg Documented By: PAULETTE Omeprazole (Omeprazole 20 Mg Capsule.Dr) 20 mg PO DAILY@629 [facility] Last Admin: 03/20/24 05:58 Dose: 20 mg Documented By: KIRILL Prednisone (Prednisone 20 Mg Tablet) 20 mg PO DAILY [facility] Last Admin: 03/20/24 08:18 Dose: 20 mg Documented By: PAULETTE Pyridostigmine [place] (Pyridostigmine [place] 60 Mg Tablet) 60 mg PO TID [facility] Last Admin: 03/20/24 08:18 Dose: 60 mg Documented By: PAULETTE Quetiapine Fumarate (Quetiapine Fumarate 200 Mg Tablet) 200 mg PO BEDTIME [facility] Last Admin: 03/19/24 21:59 Dose: 200 mg Documented By: KIRILL Sertraline HCl (Sertraline Hcl 25 Mg Tablet) 25 mg PO DAILY [facility] Last Admin: 03/20/24 08:18 Dose: 25 mg Documented By: PAULETTE Sodium Chloride (0.9 % Sodium Chloride Flush 3 Ml Syringe) 3 ml IVFLUSH QSHIFT [facility] Last Admin: 03/20/24 08:18 Dose: 3 ml Documented By: PAULETTE Labs 03/20/24 06:14 03/20/24 06:14 Labs: Laboratory Results - last 24 hr 03/20/24 06:14 MCV 97.7 MCH 31.1 MCHC 31.8 RDW 13.2 Plt Count 194 MPV 9.6 Absolute Nucleated RBC 0.000 Nucleated RBC % (auto) 0.0 Anion Gap 11 L Estim Creat Clear Calc 57.5 Estimated GFR > 60 Random Glucose 91 Calcium 9.3 D Assessment and Plan (1) Myasthenia gravis with acute exacerbation: Status: Acute Assessment and Plan: 83 y/o M with a history of recently diagnosed myasthenia gravis, hx of mood dis ,cognitive imapirment: Myasthenia gravis with acute exacerbation : sob improving moniter VC q4hr (nif around 2.88 range ) continue IVIG daily for 5 days because of increasing weakness. neurochecks neurology consult ? dysphagia: bedside swallow eval. mood dis: continue home meds once reconcile. dvt prophylax :s/c heparin ongoing need for stay: Considering myasthenia gravis flare-need IVIG and neurchecks , VC monitering and neurology eval Quality Stroke Does the patient have a stroke diagnosis?: No VTE Prior VTE?: No VTE Risk Level:: Medical - moderate - high VTE Device Contraindication: N/A - Device Ordered VTE Drug Contraindication: N/A - Med Ordered
--- NOTE | 2024-03-20 15:20 | PM.EVENT ---
Event Note Date of Service: 03/20/24 Event Note: This commercial underwriter met with patient in his hospital room as I am his outpatient psychiatric medication provider. Pt reports he is feeling well cared for. He says everyone he has met has treated him with the best care. He reports some difficulty taking a deep breath and feels tired. He tells me Dr Juarez came to see him as well and he appreciated his visit. He says he feels better since getting the infusion but still not back to his baseline. he has trouble forming words intermittently; he appears fatigued. he is alert and oriented. he knew who I was immediately upon my entering his room. This commercial underwriter also spoke to his by phone with Darrian's permission to see how she is coping. She is tired and worried but feels she is coping well. This commercial underwriter spoke to Dr Sorensen who will order a lithium level to be drawn tomorrow am. Pt has an appt with this commercial underwriter on Saturday. I can see him in the hospital if he continues to be inpatient or I can reschedule him to another time at his convenience Time Spent With Patient Time: Total time managing care of this patient today _15___ minutes.
[2024-03-20] MEDS: Immune Globulin 10% Gammagard 30 GM/300 ML VIAL IV (16:43)
[2024-03-20] MEDS: lamoTRIgine 100 MG TABLET PO (21:51)
[2024-03-20] MEDS: Lithium Carbonate ER 450 MG TABLET.ER 900 MG PO (21:51)
[2024-03-20] MEDS: QUEtiapine Fumarate 200 MG TABLET PO (21:51)
[2024-03-21] VITALS (10 sets, daily range): BP systolic 121–167; BP diastolic 65–89; PULSE 59–84; RESP 15–18; TEMP 36.2–36.9; O2SAT 94–97
[2024-03-21] MEDS: Heparin Sodium,Porcine 5,000 UNIT/ML VIAL 5000 UNIT SUBCUT ×3 (01:26→17:25)
[2024-03-21] MEDS: Omeprazole 20 MG CAPSULE.DR PO (06:21)
[2024-03-21] MEDS: Levothyroxine Sodium 175 MCG TABLET PO (06:21)
[2024-03-21 07:12] LABS: Lithium 0.94 mmol/L (0.60-1.20)
[2024-03-21 08:55] LABS: Anion Gap 11 (12-20); Blood Urea Nitrogen 13 mg/dL (9-16); Calcium 9.7 mg/dL (8.4-10.2); Carbon Dioxide 28 mmol/L (22-29); Chloride 107 mmol/L (96-108); Creatinine Clr Calc Pharmacy 43.1; Estimated Glomerular Filt Rate 45; Glucose Random 94 mg/dL (60-115); Potassium 3.9 mmol/L (3.3-5.1); Sodium 142 mmol/L (135-145)
[2024-03-21] MEDS: Memantine HCl 10 MG TABLET PO ×2 (09:00→20:26)
[2024-03-21] MEDS: mycophenolate mofetiL 250 MG CAPSULE 500 MG PO ×2 (09:00→20:27)
[2024-03-21] MEDS: predniSONE 20 MG TABLET PO (09:00)
[2024-03-21] MEDS: pyRIDostigmine bromide 60 MG TABLET PO ×3 (09:00→20:28)
[2024-03-21] MEDS: Acetaminophen 325 MG TABLET 650 MG PO (09:00)
[2024-03-21] MEDS: Atorvastatin Calcium 20 MG TABLET PO (09:00)
[2024-03-21] MEDS: Sertraline HCL 25 MG TABLET PO (09:00)
[2024-03-21] MEDS: Lactated Ringers 1,000 ML 100 ML IVCONT ×2 (12:42→22:42)
--- NOTE | 2024-03-21 14:19 | P.PNIM_ITS ---
Subjective Subjective Date of Service: 03/21/24 Interval History: MG flare Review of Systems no sob or cough or fever. has some lightheadness , po intake is low -encouarged for po intake. Physical Exam 2 Vital Signs: Vital Signs: Last Vital Signs Temp 97.7 F 03/21/24 11:27 Pulse 71 03/21/24 11:27 Resp 16 03/21/24 11:27 BP 148/77 H 03/21/24 11:27 Pulse Ox 95 03/21/24 11:27 O2 Del Method Room Air 03/21/24 11:27 BMI result Body Mass Index 25.3 Appearance: Alert.? Oriented X3.?generalised weak. cvs: rrr, [id number] . res: air entry fair ,no rales or wheezing abd: no rebound or guarding ,nt, bs present. ext pulses present , no cyanosis neuro: axo3 , nonfocal. Objective Data Active Medications Acetaminophen (Acetaminophen 325 Mg Tablet) 650 mg PO Q6H PRN PRN Reason: Pain, Mild (Pain Scale 1-3), fever or headache Last Admin: 03/21/24 09:00 Dose: 650 mg Documented By: JIMENEZ Atorvastatin Calcium (Atorvastatin Calcium 20 Mg Tablet) 20 mg PO DAILY [facility] Last Admin: 03/21/24 09:00 Dose: 20 mg Documented By: JIMENEZ Calcium Carbonate (Calcium Carbonate 750 Mg Tab.Chew) 750 mg PO Q4H PRN PRN Reason: Heartburn Fluticasone Propionate (Fluticasone Propionate Nasal 16 Gm [place]) 2 spray NOSTRIL-B DAILY [facility] Last Admin: 03/21/24 11:35 Dose: Not Given Documented By: JIMENEZ Non-Admin Reason: Patient Refused Heparin Sodium (Porcine) (Heparin Sodium,Porcine 5,000 Unit/Ml Vial) 5,000 unit SUBCUT Q8H [facility] Last Admin: 03/21/24 09:00 Dose: 5,000 unit Documented By: JIMENEZ Immune Globulin (Gammagard 10%) 30 gm in 300 mls @ 41 mls/hr IV Q24H [facility] Stop: 03/22/24 23:20 Last Infusion: 03/21/24 00:29 Dose: Infused Documented By: KIRILL Lactated Ringer's (Lr) 1,000 mls @ 100 mls/hr IVCONT .Q10H [facility] Last Admin: 03/21/24 12:42 Dose: 100 mls/hr Documented By: JIMENEZ Lamotrigine (Lamotrigine 100 Mg Tablet) 100 mg PO BEDTIME [facility] Last Admin: 03/20/24 21:51 Dose: 100 mg Documented By: KIRILL Levothyroxine Sodium (Levothyroxine Sodium 175 Mcg Tablet) 175 mcg PO DAILY@0630 [facility] Last Admin: 03/21/24 06:21 Dose: 175 mcg Documented By: KIRILL [place] Carbonate ([place] Carbonate Er 450 Mg Tablet.Er) 900 mg PO BEDTIME [facility] Last Admin: 03/20/24 21:51 Dose: 900 mg Documented By: KIRILL Magnesium Hydroxide (Milk Of Magnesia 30 Ml Oral.Susp) 30 ml PO DAILY PRN PRN Reason: Constipation Melatonin (Melatonin 3 Mg Tablet) 6 mg PO BEDTIME PRN PRN Reason: Insomnia Memantine (Memantine Hcl 10 Mg Tablet) 10 mg PO BID [facility] Last Admin: 03/21/24 09:00 Dose: 10 mg Documented By: JIMENEZ Mycophenolate Mofetil (Mycophenolate Mofetil 250 Mg Capsule) 500 mg PO BID [facility] Last Admin: 03/21/24 09:00 Dose: 500 mg Documented By: JIMENEZ Omeprazole (Omeprazole 20 Mg Capsule.Dr) 20 mg PO DAILY@0630 [facility] Last Admin: 03/21/24 06:21 Dose: 20 mg Documented By: KIRILL Prednisone (Prednisone 20 Mg Tablet) 20 mg PO DAILY [facility] Last Admin: 03/21/24 09:00 Dose: 20 mg Documented By: JIMENEZ Pyridostigmine [place] (Pyridostigmine [place] 60 Mg Tablet) 60 mg PO TID [facility] Last Admin: 03/21/24 09:00 Dose: 60 mg Documented By: JIMENEZ Quetiapine Fumarate (Quetiapine Fumarate 200 Mg Tablet) 200 mg PO BEDTIME [facility] Last Admin: 03/20/24 21:51 Dose: 200 mg Documented By: KIRILL Sertraline HCl (Sertraline Hcl 25 Mg Tablet) 25 mg PO DAILY [facility] Last Admin: 03/21/24 09:00 Dose: 25 mg Documented By: JIMENEZ Sodium Chloride (0.9 % Sodium Chloride Flush 3 Ml Syringe) 3 ml IVFLUSH QSHIFT [facility] Last Admin: 03/21/24 11:35 Dose: Not Given Documented By: JIMENEZ Non-Admin Reason: given Labs 03/20/24 06:14 03/21/24 08:14 Labs: Laboratory Results - last 24 hr 03/21/24 03/21/24 06:19 08:14 Anion Gap 11 L Estim Creat Clear Calc 43.1 Estimated GFR 45 Random Glucose 94 Calcium 9.7 [place] 0.94 Assessment and Plan (1) Myasthenia gravis with acute exacerbation: Status: Acute Assessment and Plan: 83 y/o M with a history of recently diagnosed myasthenia gravis, hx of mood dis ,cognitive imapirment: Myasthenia gravis with acute exacerbation : sob improving moniter VC q4hr (nif around 3.1range ) continue IVIG daily for 4/5 days because of increasing weakness. neurochecks neurology consult Dizziness /lightheaness:mosltly when stands or walk tele seems fine encouraged for po intake check orthostasis iVf added ? dysphagia: bedside swallow eval-chopped diet added Gi eval -need egd. mood dis: continue home meds once reconcile. dvt prophylax :s/c heparin ongoing need for stay: Considering myasthenia gravis flare-need IVIG and neurchecks , VC monitering and need egd for dys phagia eval. Quality Stroke Does the patient have a stroke diagnosis?: No VTE Prior VTE?: No VTE Risk Level:: Medical - moderate - high VTE Device Contraindication: N/A - Device Ordered VTE Drug Contraindication: N/A - Med Ordered
--- NOTE | 2024-03-21 14:59 | P.CNGI_ITS ---
History of Present Illness Data of Consult Service Date: 03/21/24 Requesting physician: Tammy Sorensen Primary Care Provider: Mika Barrientos MD HPI Reason for consult: Dysphagia 83 y/o M diagnosed with myasthenia gravis in 09/2023, hx of mood dis ,cognitive imapirment : Patient was recently started on prednisone and pyridostigmine as an outpatient. Pt was seen by Neurology and [place] [facility] [place] due to shortness of breath, generalized weakness, swallowing impairment(unclear if chronic). ED physciain d/w neuro: Dr. Juarez's office and neuro rec-admission for mystenia flare -also started on ivig , Respiratory therapy saw him and his NIF is -60 and his vital capacity is 2.5 L. GI consulted for evaluation of dysphagia. Hx obtained from the pt and his who was at the bedside. Pt reports he has noted dysphagia to solids and liquids for the past several months. He notes bubbles in his chest after drinking water. Patient denies episodes of choking or regurgitation or coughing spells while eating. He gives a history of heartburn for the past several years and took Omeprazole in the past and discontinued it for unclear reasons. He recalls he had a barium swallow a long time ago and does not recall the results. Pt reports he has gained 8 to 10 lbs over the past 6-8 years (mostly belly fat) Patient denies smoking or ETOH abuse, snoring or sleep apnea. Family hx is positive for colon cancer in his Mom. 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 Patient reports globus sensation after swallow of most solids, has had episodes of food and liquid coming back up, when taking liquids after solids to help swallow. Patient also presents with mildly reduced laryngeal elevation on swallow evaluation today. Recommend DOWNGRADE diet to chopped/advanced (NDD3) continue with thin liquids, smaller pills with thin liquids, larger pills crushed if possible in puree, followed by sips of liquid. Recommend medical team consider GI consult re: esophageal issues inpatient v. outpatient (patient reports no hx of GI visit). Review of Systems 2 Review of Systems: Yes all other systems are reviewed and are negative [facility] Social History Social History Household Members: Spouse Housing: Condominium Do you presently have visiting nurse or other home services: No Patient Tobacco Use Status: Never used Tobacco service: No Meds Allergies Allergy/AdvReac Type Severity Reaction Status Date / Time amoxicillin Allergy Intermediate Rash Verified 03/18/24 11:09 Active Medications: Current Medications Acetaminophen (Acetaminophen 325 Mg Tablet) 650 mg PO Q6H PRN PRN Reason: Pain, Mild (Pain Scale 1-3), fever or headache Last Admin: 03/21/24 09:00 Dose: 650 mg Atorvastatin Calcium (Atorvastatin Calcium 20 Mg Tablet) 20 mg PO DAILY [facility] Last Admin: 03/21/24 09:00 Dose: 20 mg Calcium Carbonate (Calcium Carbonate 750 Mg Tab.Chew) 750 mg PO Q4H PRN PRN Reason: Heartburn Fluticasone Propionate (Fluticasone Propionate Nasal 16 Gm [place]) 2 spray NOSTRIL-B DAILY [facility] Last Admin: 03/21/24 11:35 Dose: Not Given Heparin Sodium (Porcine) (Heparin Sodium,Porcine 5,000 Unit/Ml Vial) 5,000 unit SUBCUT Q8H [facility] Last Admin: 03/21/24 09:00 Dose: 5,000 unit Immune Globulin (Gammagard 10%) 30 gm in 300 mls @ 41 mls/hr IV Q24H [facility] Stop: 03/22/24 23:20 Last Infusion: 03/21/24 00:29 Dose: Infused Lactated Ringer's (Lr) 1,000 mls @ 100 mls/hr IVCONT .Q10H [facility] Last Admin: 03/21/24 12:42 Dose: 100 mls/hr Lamotrigine (Lamotrigine 100 Mg Tablet) 100 mg PO BEDTIME [facility] Last Admin: 03/20/24 21:51 Dose: 100 mg Levothyroxine Sodium (Levothyroxine Sodium 175 Mcg Tablet) 175 mcg PO DAILY@0630 [facility] Last Admin: 03/21/24 06:21 Dose: 175 mcg [place] Carbonate ([place] Carbonate Er 450 Mg Tablet.Er) 900 mg PO BEDTIME [facility] Last Admin: 03/20/24 21:51 Dose: 900 mg Magnesium Hydroxide (Milk Of Magnesia 30 Ml Oral.Susp) 30 ml PO DAILY PRN PRN Reason: Constipation Melatonin (Melatonin 3 Mg Tablet) 6 mg PO BEDTIME PRN PRN Reason: Insomnia Memantine (Memantine Hcl 10 Mg Tablet) 10 mg PO BID [facility] Last Admin: 03/21/24 09:00 Dose: 10 mg Mycophenolate Mofetil (Mycophenolate Mofetil 250 Mg Capsule) 500 mg PO BID [facility] Last Admin: 03/21/24 09:00 Dose: 500 mg Omeprazole (Omeprazole 20 Mg Capsule.Dr) 20 mg PO DAILY@0630 [facility] Last Admin: 03/21/24 06:21 Dose: 20 mg Prednisone (Prednisone 20 Mg Tablet) 20 mg PO DAILY [facility] Last Admin: 03/21/24 09:00 Dose: 20 mg Pyridostigmine [place] (Pyridostigmine [place] 60 Mg Tablet) 60 mg PO TID [facility] Last Admin: 03/21/24 09:00 Dose: 60 mg Quetiapine Fumarate (Quetiapine Fumarate 200 Mg Tablet) 200 mg PO BEDTIME [facility] Last Admin: 03/20/24 21:51 Dose: 200 mg Sertraline HCl (Sertraline Hcl 25 Mg Tablet) 25 mg PO DAILY [facility] Last Admin: 03/21/24 09:00 Dose: 25 mg Sodium Chloride (0.9 % Sodium Chloride Flush 3 Ml Syringe) 3 ml IVFLUSH QSHIFT [facility] Last Admin: 03/21/24 11:35 Dose: Not Given Home Medications ?Medication ?Instructions ?Recorded ?Confirmed ?Last Taken ?Type atorvastatin 20 mg tablet 20 mg PO DAILY 07/03/23 03/18/24 03/18/24 History cyanocobalamin (vitamin B-12) 1,000 mcg IM QMONTH 07/03/23 03/18/24 3 Weeks Ago History 1,000 mcg/mL injection solution ~02/26/24 fluticasone propionate 50 2 spray intranasal DAILY 07/03/23 03/18/24 03/18/24 History mcg/actuation nasal spray,suspension levothyroxine 175 mcg tablet 175 mcg PO DAILY 07/03/23 03/18/24 03/18/24 History syringe with needle 3 mL 25 x 5/8 #1 ea 07/03/23 02/10/24 Unknown History (BD Luer-Abdelrahman Syringe) memantine 10 mg tablet 10 mg PO BID 11/26/23 03/18/24 03/18/24 History pantoprazole 40 mg tablet,delayed 40 mg PO DAILY 11/26/23 03/18/24 03/18/24 History release pyridostigmine bromide 60 mg tablet 60 mg PO TID 11/26/23 03/18/24 03/18/24 History lamotrigine 100 mg tablet 100 mg PO BEDTIME 03/18/24 03/18/24 03/17/24 History (Lamictal) mycophenolate mofetil 500 mg tablet 500 mg PO BID 03/18/24 03/18/24 03/18/24 History prednisone 20 mg tablet 20 mg PO DAILY 03/18/24 03/18/24 03/18/24 History Physical Exam 2 Vital Signs: Vital Signs: Last Vital Signs Temp 97.7 F 03/21/24 11:27 Pulse 71 03/21/24 11:27 Resp 16 03/21/24 11:27 BP 148/77 H 03/21/24 11:27 Pulse Ox 95 03/21/24 11:27 O2 Del Method Room Air 03/21/24 11:27 BMI result Body Mass Index 25.3 Const: General: healthy appearing and no acute distress Nutritional Appearance: average body habitus Orientation/consciousness: patient oriented x3 Limitations: no limitations HEENT: Head: Yes normal to inspection Ears: hearing grossly normal bilaterally Eyes: Sclerae: sclerae normal Pupils: Equal, round and reactive pupils present Neck: Neck: Yes normal visual inspection Chest: Chest palpation & inspection: normal inspection of the chest Resp: Effort & Inspection: normal respiratory effort Auscultation: clear to auscultation bilaterally Cardio: Palpation: normal PMI Rate: regular rate Rhythm: regular rhythm Heart sounds: S1 normal heart sound present, S2 normal heart sound present and no murmurs GI: Inspection: Yes distended and Yes obesity Palpation (GI): Soft to palpation, nontender and No hepatosplenomegaly present Auscultation: normal bowel sounds Rectal Exam - Male: Yes deferred Skin: General skin exam: no rashes or lesions noted Neuro: General: patient oriented x3, gait normal and moves all extremities Cranial nerves: Yes Equal, round and reactive pupils present Psych: Appearance: grossly normal Mental Status: mental status grossly normal Results Labs 03/20/24 06:14 03/21/24 08:14 Labs: BMP 03/21/24 08:14 Sodium 142 Potassium 3.9 Chloride 107 Carbon Dioxide 28 BUN 13 Creatinine 1.48 H Calcium 9.7 Assessment and Plan (1) Dysphagia, pharyngoesophageal phase: Status: Acute Plan 83 y/o M diagnosed with myasthenia gravis in 09/2023, hx of mood dis ,cognitive imapirment : Patient was recently started on prednisone and pyridostigmine as an outpatient. Pt was seen by Neurology and [place] [facility] [place] due to shortness of breath, generalized weakness, swallowing impairment(unclear if chronic). ED physciain d/w neuro: Dr. Juarez's office and neuro rec-admission for mystenia flare -also started on ivig , Respiratory therapy saw him and his NIF is -60 and his vital capacity is 2.5 L. GI consulted for evaluation of dysphagia and a long hx of GERD. Dysphagia can be due to esophageal spasm, inflammatory or neoplastic stricture or associated with myasthenia gravis. RECOMMENDATIONS: 1. Agree with Omeprazole 20 mg daily for GERD. 2. EGD for further evaluation - scheduled on 03/23/24 Discussed with pt and his and they would like to proceed. Procedures Date of Service Date of Service: 03/21/24
[2024-03-21] MEDS: Immune Globulin 10% Gammagard 30 GM/300 ML VIAL IV (15:45)
[2024-03-21] MEDS: 0.9 % Sodium Chloride Flush 3 ML SYRINGE IVFLUSH ×2 (15:54→20:29)
[2024-03-21] MEDS: QUEtiapine Fumarate 200 MG TABLET PO (20:26)
[2024-03-21] MEDS: Lithium Carbonate ER 450 MG TABLET.ER 900 MG PO (20:27)
[2024-03-21] MEDS: lamoTRIgine 100 MG TABLET PO (20:28)
[2024-03-22] VITALS (11 sets, daily range): BP systolic 134–175; BP diastolic 63–92; PULSE 61–82; RESP 12–19; TEMP 36.7–36.9; O2SAT 95–98
[2024-03-22] MEDS: Heparin Sodium,Porcine 5,000 UNIT/ML VIAL 5000 UNIT SUBCUT ×3 (01:57→17:21)
[2024-03-22] MEDS: Omeprazole 20 MG CAPSULE.DR PO (05:11)
[2024-03-22] MEDS: Levothyroxine Sodium 175 MCG TABLET PO (05:14)
[2024-03-22] MEDS: Lactated Ringers 1,000 ML 100 ML IVCONT ×2 (07:41→23:17)
[2024-03-22] MEDS: Atorvastatin Calcium 20 MG TABLET PO (07:42)
[2024-03-22] MEDS: Memantine HCl 10 MG TABLET PO ×2 (07:42→20:35)
[2024-03-22] MEDS: predniSONE 20 MG TABLET PO (07:42)
[2024-03-22] MEDS: pyRIDostigmine bromide 60 MG TABLET PO ×3 (07:42→20:35)
[2024-03-22] MEDS: Sertraline HCL 25 MG TABLET PO (07:42)
[2024-03-22] MEDS: mycophenolate mofetiL 250 MG CAPSULE 500 MG PO ×2 (07:42→20:35)
[2024-03-22] MEDS: Acetaminophen 325 MG TABLET 650 MG PO ×2 (07:42→20:36)
[2024-03-22] MEDS: 0.9 % Sodium Chloride Flush 3 ML SYRINGE IVFLUSH ×3 (07:44→20:37)
[2024-03-22 08:55] LABS: Anion Gap 8 (12-20); Blood Urea Nitrogen 11 mg/dL (9-16); Calcium 9.2 mg/dL (8.4-10.2); Carbon Dioxide 29 mmol/L (22-29); Chloride 108 mmol/L (96-108); Estimated Glomerular Filt Rate 47; Glucose Random 88 mg/dL (60-115); Sodium 141 mmol/L (135-145)
[2024-03-22] MEDS: ondansetron HCL 4 MG/2 ML VIAL IVPUSH (09:19)
[2024-03-22] MEDS: Fluticasone Propionate Nasal 16 GM SPRAY 2 SPRAY NOSTRIL-B (09:19)
[2024-03-22] MEDS: Famotidine/PF 20 MG/2 ML VIAL IVPUSH (10:24)
--- NOTE | 2024-03-22 10:38 | PM.EVENT ---
Event Note Date of Service: 03/22/24 Event Note: Pt not seen. Chart reviewed. reviewed patient labs. [place] level .94. Pt continues with some dizziness especially when standing. Continues treatment for MG flare. recommend trial decrease of seroqule from 200mg to 150mg at bedtime. Communicated to Dr Sorensen Time Spent With Patient Time: Total time managing care of this patient today _15___ minutes.
--- NOTE | 2024-03-22 14:11 | HO.PM.IMPN ---
Subjective Subjective Date of Service: 03/22/24 Interval History: dysphagia ,zack Review of Systems dizziness improving denies sob Physical Exam Vital Signs: Vital Signs: Last Vital Signs Temp 98.5 F 03/22/24 12:00 Pulse 68 03/22/24 12:00 Resp 12 03/22/24 12:00 BP 138/64 03/22/24 12:00 Pulse Ox 96 03/22/24 12:00 O2 Del Method Room Air 03/22/24 12:00 BMI result Body Mass Index 25.3 Appearance: Alert.? Oriented X3.?generalised weak. cvs: rrr, [id number] . res: air entry fair ,no rales or wheezing abd: no rebound or guarding ,nt, bs present. ext pulses present , no cyanosis neuro: axo3 , nonfocal. Objective Data Active Medications Acetaminophen (Acetaminophen 325 Mg Tablet) 650 mg PO Q6H PRN PRN Reason: Pain, Mild (Pain Scale 1-3), fever or headache Last Admin: 03/22/24 07:42 Dose: 650 mg Documented By: JIMENEZ Atorvastatin Calcium (Atorvastatin Calcium 20 Mg Tablet) 20 mg PO DAILY [facility] Last Admin: 03/22/24 07:42 Dose: 20 mg Documented By: JIMENEZ Calcium Carbonate (Calcium Carbonate 750 Mg Tab.Chew) 750 mg PO Q4H PRN PRN Reason: Heartburn Fluticasone Propionate (Fluticasone Propionate Nasal 16 Gm [place]) 2 spray NOSTRIL-B DAILY [facility] Last Admin: 03/22/24 09:19 Dose: 2 spray Documented By: JIMENEZ Heparin Sodium (Porcine) (Heparin Sodium,Porcine 5,000 Unit/Ml Vial) 5,000 unit SUBCUT Q8H [facility] Last Admin: 03/22/24 09:19 Dose: 5,000 unit Documented By: JIMENEZ Immune Globulin (Gammagard 10%) 30 gm in 300 mls @ 41 mls/hr IV Q24H [facility] Stop: 03/22/24 23:20 Last Infusion: 03/21/24 23:59 Dose: Infused Documented By: KIRILL Lactated Ringer's (Lr) 1,000 mls @ 100 mls/hr IVCONT .Q10H [facility] Last Admin: 03/22/24 07:41 Dose: 100 mls/hr Documented By: JIMENEZ Lamotrigine (Lamotrigine 100 Mg Tablet) 100 mg PO BEDTIME [facility] Last Admin: 03/21/24 20:28 Dose: 100 mg Documented By: KIRILL Levothyroxine Sodium (Levothyroxine Sodium 175 Mcg Tablet) 175 mcg PO DAILY@0630 [facility] Last Admin: 03/22/24 05:14 Dose: 175 mcg Documented By: KIRILL [place] Carbonate ([place] Carbonate Er 450 Mg Tablet.Er) 900 mg PO BEDTIME [facility] Last Admin: 03/21/24 20:27 Dose: 900 mg Documented By: KIRILL Magnesium Hydroxide (Milk Of Magnesia 30 Ml Oral.Susp) 30 ml PO DAILY PRN PRN Reason: Constipation Melatonin (Melatonin 3 Mg Tablet) 6 mg PO BEDTIME PRN PRN Reason: Insomnia Memantine (Memantine Hcl 10 Mg Tablet) 10 mg PO BID [facility] Last Admin: 03/22/24 07:42 Dose: 10 mg Documented By: JIMENEZ Mycophenolate Mofetil (Mycophenolate Mofetil 250 Mg Capsule) 500 mg PO BID [facility] Last Admin: 03/22/24 07:42 Dose: 500 mg Documented By: JIMENEZ Omeprazole (Omeprazole 40 Mg Capsule.Dr) 40 mg PO DAILY@0630 [facility] Ondansetron HCl (Ondansetron Hcl 4 Mg/2 Ml Vial) 4 mg IVPUSH Q6H PRN PRN Reason: Nausea and Vomiting Last Admin: 03/22/24 09:19 Dose: 4 mg Documented By: JIMENEZ Prednisone (Prednisone 20 Mg Tablet) 20 mg PO DAILY [facility] Last Admin: 03/22/24 07:42 Dose: 20 mg Documented By: JIMENEZ Pyridostigmine Hortense (Pyridostigmine [place] 60 Mg Tablet) 60 mg PO TID [facility] Last Admin: 03/22/24 07:42 Dose: 60 mg Documented By: JIMENEZ Quetiapine Fumarate (Quetiapine Fumarate 50 Mg Tablet) 150 mg PO BEDTIME [facility] Sertraline HCl (Sertraline Hcl 25 Mg Tablet) 25 mg PO DAILY [facility] Last Admin: 03/22/24 07:42 Dose: 25 mg Documented By: JIMENEZ Sodium Chloride (0.9 % Sodium Chloride Flush 3 Ml Syringe) 3 ml IVFLUSH QSHIFT [facility] Last Admin: 03/22/24 07:44 Dose: 3 ml Documented By: JIMENEZ Labs 03/20/24 06:14 03/22/24 08:12 Labs: Laboratory Results - last 24 hr 03/22/24 08:12 Anion Gap 8 L Estim Creat Clear Calc 45.0 Estimated GFR 47 Random Glucose 88 Calcium 9.2 Assessment and Plan (1) Myasthenia gravis with acute exacerbation: Status: Acute Assessment and Plan: 83 y/o M with a history of recently diagnosed myasthenia gravis, hx of mood dis ,cognitive imapirment: Myasthenia gravis with acute exacerbation : sob improving moniter VC q4hr (nif around 3.6 range ) continue IVIG daily for 5/5 days. neurochecks neurology consult noted. Dizziness /lightheaness:mostly when stands or walk likely sec to relative hypovolemia, zack tele seems fine encouraged for po intake moniter orthostasis iVf added ,continue hydration ? dysphagia: bedside swallow eval-chopped diet added Gi eval -need egd,npo past midnight mood dis: continue home meds once reconcile. dvt prophylax :s/c heparin ongoing need for stay: Considering myasthenia gravis flare-need IVIG and neurchecks , VC monitering and need egd for dys phagia eval. Quality Stroke Does the patient have a stroke diagnosis?: No VTE Prior VTE?: No VTE Risk Level:: Medical - moderate - high VTE Device Contraindication: N/A - Device Ordered VTE Drug Contraindication: N/A - Med Ordered
[2024-03-22] MEDS: Immune Globulin 10% Gammagard 30 GM/300 ML VIAL IV (15:12)
[2024-03-22] MEDS: QUEtiapine Fumarate 50 MG TABLET 150 MG PO (20:35)
[2024-03-22] MEDS: Lithium Carbonate ER 450 MG TABLET.ER 900 MG PO (20:35)
[2024-03-22] MEDS: lamoTRIgine 100 MG TABLET PO (20:36)
[2024-03-23] VITALS (14 sets, daily range): BP systolic 129–178; BP diastolic 68–95; PULSE 59–82; RESP 16–20; TEMP 36.2–37; O2SAT 93–97
[2024-03-23] MEDS: Heparin Sodium,Porcine 5,000 UNIT/ML VIAL 5000 UNIT SUBCUT ×3 (01:39→17:11)
[2024-03-23] MEDS: Omeprazole 40 MG CAPSULE.DR PO (06:33)
[2024-03-23] MEDS: Levothyroxine Sodium 175 MCG TABLET PO (06:33)
[2024-03-23 08:51] LABS: Anion Gap 8 (12-20); Blood Urea Nitrogen 12 mg/dL (9-16); Calcium 9.1 mg/dL (8.4-10.2); Carbon Dioxide 31 mmol/L (22-29); Chloride 108 mmol/L (96-108); Creatinine Clr Calc Pharmacy 50.3; Estimated Glomerular Filt Rate 54; Glucose Random 87 mg/dL (60-115); Potassium 3.9 mmol/L (3.3-5.1); Sodium 143 mmol/L (135-145)
[2024-03-23] MEDS: pyRIDostigmine bromide 60 MG TABLET PO ×3 (09:01→22:05)
[2024-03-23] MEDS: Fluticasone Propionate Nasal 16 GM SPRAY 2 SPRAY NOSTRIL-B (09:01)
[2024-03-23] MEDS: predniSONE 20 MG TABLET PO (09:02)
[2024-03-23] MEDS: Memantine HCl 10 MG TABLET PO ×2 (09:02→22:05)
[2024-03-23] MEDS: Sertraline HCL 25 MG TABLET PO (09:02)
[2024-03-23] MEDS: mycophenolate mofetiL 250 MG CAPSULE 500 MG PO ×2 (09:02→22:05)
[2024-03-23] MEDS: Lactated Ringers 1,000 ML 100 ML IVCONT ×2 (09:06→22:06)
--- NOTE | 2024-03-23 12:35 | MHC.SHP ---
Pre-Procedural Eval Section A - 24 Hr Update-Section A only Date of Service: 03/23/24 The patient is an INPATIENT: Yes Changes since office visit: Yes New Medical Problems, Yes Changes in Medication and Yes Patient answered all questions; No Cold of Flu in the past 2 weeks The patient has been examined within 24 hours of the surgical procedure. The History & Physical has been completed within 30 days and I have reviewed it.: Yes Section B - Complete if H&P > 30 days Chief Complaint: Dysphagia Allergies: Allergies Allergy/AdvReac Type Severity Reaction Status Date / Time amoxicillin Allergy Intermediate Rash Verified 03/18/24 11:09 Plan Diagnosis/Plan: Unchanged I have reviewed the history and physical and performed a pertinent physical examination on my patient. No changes have occurred unless specified. Time Spent With Patient Time: Total time managing care of this patient today ____ minutes.
--- NOTE | 2024-03-23 12:50 | P.CONAN_ITS ---
ON LICENSE OF [facility] Active Problems Active Problems: All Active Problems Dysphagia, pharyngoesophageal phase (Acute) Myasthenia gravis with acute exacerbation (Acute) Anticipatory grief (Acute) ERIK (generalized anxiety disorder) (Acute) Bipolar 1 disorder, mixed, moderate (Acute) Other terminal operations supervisor (current) drug therapy (Acute) Family History Family history of problems with anesthesia: No Surgical History History of Problems with Anesthesia: No Social History Social History Household Members: Spouse [facility]: [facility] Do you presently have visiting nurse or other home services: No Comment: pt does not always ring before getting OOB; camera placed Patient Tobacco Use Status: Never used Tobacco Second Hand Smoke Exposure: No Use of substances other than those prescribed or required for medical reasons: No Currently Displaying Signs/Symptoms of Drug Intoxication Withdrawal: No Have you been hit, kicked, punched, or otherwise hurt by someone within the past year? If so, by whom?: No Do you feel safe in your current relationship?: Yes Is there a partner from a previous relationship who is making you feel unsafe now?: No Are you made to feel afraid or neglected: No Are you DNR?: Yes Advance Directives: No Advance Directives Information Provided: Yes Advance Directives on File: No Do you have a plan to hurt others: No Plan Recently lost weight without trying: No Eating poorly because of decreased appetite: No Nutrition Risks: No Nutritional Risk Poor oral hygiene: No service: No Meds Allergies Allergy/AdvReac Type Severity Reaction Status Date / Time amoxicillin Allergy Intermediate Rash Verified 03/18/24 11:09 Active Medications: Current Medications Acetaminophen (Acetaminophen 325 Mg Tablet) 650 mg PO Q6H PRN PRN Reason: Pain, Mild (Pain Scale 1-3), fever or headache Last Admin: 03/22/24 20:36 Dose: 650 mg Atorvastatin Calcium (Atorvastatin Calcium 20 Mg Tablet) 20 mg PO DAILY [facility] Last Admin: 03/23/24 09:05 Dose: Not Given Calcium Carbonate (Calcium Carbonate 750 Mg Tab.Chew) 750 mg PO Q4H PRN PRN Reason: Heartburn Fluticasone Propionate (Fluticasone Propionate Nasal 16 Gm [place]) 2 spray NOSTRIL-B DAILY [facility] Last Admin: 03/23/24 09:01 Dose: 2 spray Heparin Sodium (Porcine) (Heparin Sodium,Porcine 5,000 Unit/Ml Vial) 5,000 unit SUBCUT Q8H [facility] Last Admin: 03/23/24 09:06 Dose: 5,000 unit Lactated Ringer's (Lr) 1,000 mls @ 100 mls/hr IVCONT .Q10H [facility] Last Infusion: 03/23/24 12:12 Dose: 0 mls/hr Lactated Ringer's (Lr) 1,000 mls @ 50 mls/hr IVCONT .Q20H [facility] Lamotrigine (Lamotrigine 100 Mg Tablet) 100 mg PO BEDTIME [facility] Last Admin: 03/22/24 20:36 Dose: 100 mg Levothyroxine Sodium (Levothyroxine Sodium 175 Mcg Tablet) 175 mcg PO DAILY@0630 [facility] Last Admin: 03/23/24 06:33 Dose: 175 mcg [place] Carbonate ([place] Carbonate Er 450 Mg Tablet.Er) 900 mg PO BEDTIME [facility] Last Admin: 03/22/24 20:35 Dose: 900 mg Magnesium Hydroxide (Milk Of Magnesia 30 Ml Oral.Susp) 30 ml PO DAILY PRN PRN Reason: Constipation Melatonin (Melatonin 3 Mg Tablet) 6 mg PO BEDTIME PRN PRN Reason: Insomnia Memantine (Memantine Hcl 10 Mg Tablet) 10 mg PO BID [facility] Last Admin: 03/23/24 09:02 Dose: 10 mg Mycophenolate Mofetil (Mycophenolate Mofetil 250 Mg Capsule) 500 mg PO BID [facility] Last Admin: 03/23/24 09:02 Dose: 500 mg Naloxone HCl (Naloxone Hcl 0.4 Mg/Ml Vial) 0.04 mg IVPUSH Q5M PRN PRN Reason: Excessive sedation or RR < 8 Omeprazole (Omeprazole 40 Mg Capsule.Dr) 40 mg PO DAILY@0630 [facility] Last Admin: 03/23/24 06:33 Dose: 40 mg Ondansetron HCl (Ondansetron Hcl 4 Mg/2 Ml Vial) 4 mg IVPUSH Q6H PRN PRN Reason: Nausea and Vomiting Last Admin: 03/22/24 09:19 Dose: 4 mg Prednisone (Prednisone 20 Mg Tablet) 20 mg PO DAILY [facility] Last Admin: 03/23/24 09:02 Dose: 20 mg Pyridostigmine [place] (Pyridostigmine [place] 60 Mg Tablet) 60 mg PO TID [facility] Last Admin: 03/23/24 09:01 Dose: 60 mg Quetiapine Fumarate (Quetiapine Fumarate 50 Mg Tablet) 150 mg PO BEDTIME [facility] Last Admin: 03/22/24 20:35 Dose: 150 mg Sertraline HCl (Sertraline Hcl 25 Mg Tablet) 25 mg PO DAILY [facility] Last Admin: 03/23/24 09:02 Dose: 25 mg Sodium Chloride (0.9 % Sodium Chloride Flush 3 Ml Syringe) 3 ml IVFLUSH QSHIFT [facility] Last Admin: 03/23/24 09:05 Dose: Not Given Home Medications ?Medication ?Instructions ?Recorded ?Confirmed ?Last Taken ?Type atorvastatin 20 mg tablet 20 mg PO DAILY 07/03/23 03/18/24 03/18/24 History cyanocobalamin (vitamin B-12) 1,000 mcg IM QMONTH 07/03/23 03/18/24 3 Weeks Ago History 1,000 mcg/mL injection solution ~02/26/24 fluticasone propionate 50 2 spray intranasal DAILY 07/03/23 03/18/24 03/18/24 History mcg/actuation nasal spray,suspension levothyroxine 175 mcg tablet 175 mcg PO DAILY 07/03/23 03/18/24 03/18/24 History syringe with needle 3 mL 25 x 5/8 #1 ea 07/03/23 02/10/24 Unknown History (BD Luer-Abdelrahman Syringe) memantine 10 mg tablet 10 mg PO BID 11/26/23 03/18/24 03/18/24 History pantoprazole 40 mg tablet,delayed 40 mg PO DAILY 11/26/23 03/18/24 03/18/24 History release pyridostigmine bromide 60 mg tablet 60 mg PO TID 11/26/23 03/18/24 03/18/24 History lamotrigine 100 mg tablet 100 mg PO BEDTIME 03/18/24 03/18/24 03/17/24 History (Lamictal) mycophenolate mofetil 500 mg tablet 500 mg PO BID 03/18/24 03/18/24 03/18/24 H istory prednisone 20 mg tablet 20 mg PO DAILY 03/18/24 03/18/24 03/18/24 History Exam Height,Weight and Vital Signs: Height 6 ft 2 in Weight 89.5 kg Last Vital Signs Temp 98.6 F 03/23/24 12:30 Pulse 62 12/16/24 12:30 Resp 16 03/23/24 12:30 BP 134/68 03/23/24 12:30 Pulse Ox 96 03/23/24 12:30 O2 Del Method Room Air 03/23/24 12:30 Pertinent Lab Results Pertinent Lab Results: Laboratory Tests 03/18/24 03/18/24 03/20/24 11:44 11:45 06:14 WBC 14.3 H 10.4 RBC 3.98 L 3.99 L Hgb 12.7 L 12.4 L Hct 39.3 L 39.0 L MCV 98.7 H 97.7 MCH 31.9 31.1 MCHC 32.3 31.8 RDW 13.9 13.2 Plt Count 233 194 MPV 8.8 L 9.6 Immature Gran % (Auto) 1.4 H Neut % (Auto) 88.5 H Lymph % (Auto) 4.6 L [place] % (Auto) 4.6 Eos % (Auto) 0.7 Baso % (Auto) 0.2 Lymph # (Auto) 0.7 L [place] # (Auto) 0.7 Eos # (Auto) 0.1 Baso # (Auto) 0.0 Abs Immat Gran (auto) 0.20 H Absolute Neuts (auto) 12.6 H Absolute Nucleated RBC 0.000 0.000 Nucleated RBC % (auto) 0.0 0.0 PT 11.6 INR 1.0 Sodium 144 143 Potassium 3.6 3.5 Chloride 109 H 113 H Carbon Dioxide 28 23 Anion Gap 11 L 11 L BUN 23 H 13 Creatinine 1.39 1.11 Estim Creat Clear Calc 45.9 57.5 Estimated GFR 49 > 60 Random Glucose 98 91 Calcium 10.1 9.3 D Total Bilirubin 0.4 AST 29 ALT 39 Alkaline Phosphatase 89 Troponin I High Sens 11.4 B-Natriuretic Peptide 51 Total Protein 6.5 Albumin 3.9 [place] Influenza Type A (PCR) NEGATIVE Influenza Type B (PCR) NEGATIVE RSV RNA Qual (PCR) NEGATIVE SARS-CoV-2 RNA (RT-PCR) NEGATIVE 03/21/24 03/21/24 03/22/24 06:19 08:14 08:12 WBC RBC Hgb Hct MCV MCH MCHC RDW Plt Count MPV Immature Gran % (Auto) Neut % (Auto) Lymph % (Auto) [place] % (Auto) Eos % (Auto) Baso % (Auto) Lymph # (Auto) [place] # (Auto) Eos # (Auto) Baso # (Auto) Abs Immat Gran (auto) Absolute Neuts (auto) Absolute Nucleated RBC Nucleated RBC % (auto) PT INR Sodium 142 141 Potassium 3.9 4.0 Chloride 107 108 Carbon Dioxide 28 29 Anion Gap 11 L 8 L BUN 13 11 Creatinine 1.48 H 1.42 H Estim Creat Clear Calc 43.1 45.0 Estimated GFR 45 47 Random Glucose 94 88 Calcium 9.7 9.2 Total Bilirubin AST ALT Alkaline Phosphatase Troponin I High Sens B-Natriuretic Peptide Total Protein Albumin [place] 0.94 Influenza Type A (PCR) Influenza Type B (PCR) RSV RNA Qual (PCR) SARS-CoV-2 RNA (RT-PCR) 03/23/24 08:11 WBC RBC Hgb Hct MCV MCH MCHC RDW Plt Count MPV Immature Gran % (Auto) Neut % (Auto) Lymph % (Auto) [place] % (Auto) Eos % (Auto) Baso % (Auto) Lymph # (Auto) [place] # (Auto) Eos # (Auto) Baso # (Auto) Abs Immat Gran (auto) Absolute Neuts (auto) Absolute Nucleated RBC Nucleated RBC % (auto) PT INR Sodium 143 Potassium 3.9 Chloride 108 Carbon Dioxide 31 H Anion Gap 8 L BUN 12 Creatinine 1.27 Estim Creat Clear Calc 50.3 Estimated GFR 54 Random Glucose 87 Calcium 9.1 Total Bilirubin AST ALT Alkaline Phosphatase Troponin I High Sens B-Natriuretic Peptide Total Protein Albumin [place] Influenza Type A (PCR) Influenza Type B (PCR) RSV RNA Qual (PCR) SARS-CoV-2 RNA (RT-PCR) Airway Mallampati Class: II (partial permanent) TM Dist: >3cm Neck ROM: Full Partial: Upper Heart: rrr Lungs: cta Assessment and Plan Assessment Anesthesia Assessment: Anesthesia Plan Discussed and Chart Reviewed Final Anesthetic Review Family History of Problems with Anesthesia: No History of Problems with Anesthesia: No NPO: Yes ASA Class: III Final Preanesthetic Review: No Changes in Pt Med Stat, Meds/Allgs Chart Reviewed and Consent Obtained/Reviewed Patient Risk: Intermediate Procedure Risk: Intermediate Anesthetic Plan Anesthetic Plan: MAC: Disposition: Standard PACU
--- NOTE | 2024-03-23 13:59 | W.PM.OPN ---
Operative Note Operative Note Date of Service: 03/23/24 Narrative: FLEXIBLE TRANSORAL UPPER GASTROINTESTINAL ENDOSCOPY WITH BIOPSIES, SNARE POLYPECTOMY OF ESOPHAGEAL POLYP AND ESOPHAGEAL BALLOON DILATION Pre-op diagnosis: GERD, Dysphagia Post-op diagnosis: Dysphagia, gastritis, esophageal polyp, multiple gastric Endoscopist:? Levi Hancock MD Anesthesia:?MAC UPPER ENDOSCOPY Consent: Indications for the procedure and potential complications of bleeding, perforation, reaction to medications and missed diagnosis were discussed with the patient and informed consent was obtained. Instrument: Olympus GIF H 190 mid size upper endoscope Monitoring: Vital signs and clinical assessment, continuous EKG monitoring, Pulse oximetry, Carbon Dioxide monitoring and blood pressure monitoring were done throughout the procedure. Procedure: The patient was placed in the left lateral decubitis position and pre-procedure medications were administered and a bite block was placed. The endoscope was inserted into the mouth and advanced under direct vision to the third part of duodenum. A careful inspection was made as the upper endoscope was withdrawn including a retroflexed examination of the proximal stomach; Findings and interventions are described below. Findings: Larynx: Normal Esophagus: GE junction at 40 cms. Mildly tortuous esophagus without stricture or ring Empiric balloon dilation was performed with a 20 mm (60 F) CRE balloon x 60 seconds A 1.5 - 2 cms polyp at GE junction with partial obstruction - polyp was removed piecemeal with a hot snare and retrieved with a Humphries net Stomach: Moderate diffuse gastric erythema - biopsies were obtained from the antrum. Multiple 5 to 15 mm benign appearing polyps in the stomach and one 10 mm polyp just distal to the cardia - biopsied Grade 2 flap valve on retroflexed examination of the cardia. Duodenum: Normal bulb and descending duodenum Intervention: Biopsies as noted above Impression and Post Procedure Diagnosis: Endoscopy Findings: ESOPHAGUS: STOMACH: Plan: Pt has a FU appointment on with [RIAZ Altamirano], [India Culver NP]. Above findings were reviewed with the patient and relevant handouts were given and the discharge area.
--- NOTE | 2024-03-23 14:22 | P.DS_ITS ---
DS: Providers Provider Date of Service: 03/23/24 Date of admission: 03/18/24 16:12 Date of discharge: 03/23/24 Primary care physician: Mika Barrientos MD Consults: 03/18/24 17:19 Consult to Neurology Routine Consulting Provider: [facility] Reason for consultation: myasthenia flare Has provider been notified: No 03/20/24 12:26 Consult to Gastroenterology Routine Consulting Provider: [facility] Reason for consultation: dysphagia Has provider been notified: No Attending physician on discharge: Tammy Sorensen Discharging clinician: Tammy Sorensen DS: Diagnosis Discharge Diagnosis (1) Myasthenia gravis with acute exacerbation: Status: Acute DS: Summary Hospital Course Hospital Course: HPI: Physical Exam Vital Signs: Vital Signs: Last Vital Signs Temp 97.7 F 03/23/24 14:02 Pulse 69 03/23/24 14:02 Resp 16 03/23/24 14:02 BP 129/78 03/23/24 14:02 Pulse Ox 97 03/23/24 14:02 O2 Del Method Room Air 03/23/24 14:02 BMI result Body Mass Index 25.3 DS: Data Data Completed and Pending Pending studies at discharge: Pending at discharge 03/23/24 13:43 Surgical [PTH] Routine Labs on day of discharge: Laboratory Results - last 24 hr 03/23/24 08:11 Sodium 143 Potassium 3.9 Chloride 108 Carbon Dioxide 31 H Anion Gap 8 L BUN 12 Creatinine 1.27 Estim Creat Clear Calc 50.3 Estimated GFR 54 Random Glucose 87 Calcium 9.1 Discharge Plan Discharge Anticipated Discharge Date/Time: 03/23/24 14:18 Patient Disposition: Home Health Service Discharge Diagnosis: Myasthenia flare, dyspahgia Referrals: Mika Barrientos MD [Primary Care Provider] - 1 Week Discharge Medications: Continued quetiapine 200 mg tablet 200 mg PO BEDTIME Qty: 30 2RF prednisone 20 mg tablet 20 mg PO DAILY mycophenolate mofetil 500 mg tablet 500 mg PO BID lamotrigine [Lamictal] 100 mg tablet 100 mg PO BEDTIME sertraline 25 mg tablet 25 mg PO DAILY Qty: 30 2RF atorvastatin 20 mg tablet 20 mg PO DAILY levothyroxine 175 mcg tablet 175 mcg PO DAILY fluticasone propionate 50 mcg/actuation spray,suspension 2 spray intranasal DAILY cyanocobalamin (vitamin B-12) 1,000 mcg/mL solution 1,000 mcg IM QMONTH (DME) BD Luer-Abdelrahman Syringe 3 mL 25 x 5/8 syringe See Rx Instructions .ROUTE .MEDSUPPLY Qty: 1 Rx Instructions: As directed pyridostigmine bromide 60 mg tablet 60 mg PO TID memantine 10 mg tablet 10 mg PO BID pantoprazole 40 mg tablet,delayed release (DR/EC) 40 mg PO DAILY lithium carbonate 450 mg tablet extended release 900 mg PO BEDTIME Qty: 60 2RF Diet: Advance to usual diet Activity on Discharge: As tolerated Stand Alone Forms: Patient Portal Discharge page Print Language: Latvian Care Plan Goals: Myasthenia flare -seems improved with 5 days ivig.sob seems resolved.follow up Dr Juarez's office. omeprazole 20 mg po bid, follow Gi Dr Hancock's office. Health Concerns: as above. Plan of Treatment: as above. Assessment: as above.
--- NOTE | 2024-03-23 15:57 | HO.PM.IMPN ---
Subjective Subjective Date of Service: 03/23/24 Interval History: mystehenia gravis flare dyspahgia Review of Systems seems imporved Physical Exam Vital Signs: Vital Signs: Last Vital Signs Temp 97.2 F 03/23/24 15:35 Pulse 66 03/23/24 15:35 Resp 18 03/23/24 15:35 BP 152/86 H 03/23/24 15:35 Pulse Ox 96 03/23/24 15:35 O2 Del Method Room Air 03/23/24 15:35 BMI result Body Mass Index 25.3 Appearance: Alert.? Oriented X3.?generalised weak. cvs: rrr, [id number] . res: air entry fair ,no rales or wheezing abd: no rebound or guarding ,nt, bs present. ext pulses present , no cyanosis neuro: axo3 , nonfocal. Objective Data Active Medications Acetaminophen (Acetaminophen 325 Mg Tablet) 650 mg PO Q6H PRN PRN Reason: Pain, Mild (Pain Scale 1-3), fever or headache Last Admin: 03/22/24 20:36 Dose: 650 mg Documented By: BHANU Atorvastatin Calcium (Atorvastatin Calcium 20 Mg Tablet) 20 mg PO DAILY [facility] Last Admin: 03/23/24 09:05 Dose: Not Given Documented By: CURTIS Non-Admin Reason: Patient Refused Calcium Carbonate (Calcium Carbonate 750 Mg Tab.Chew) 750 mg PO Q4H PRN PRN Reason: Heartburn Fluticasone Propionate (Fluticasone Propionate Nasal 16 Gm [place]) 2 spray NOSTRIL-B DAILY [facility] Last Admin: 03/23/24 09:01 Dose: 2 spray Documented By: CURTIS Heparin Sodium (Porcine) (Heparin Sodium,Porcine 5,000 Unit/Ml Vial) 5,000 unit SUBCUT Q8H [facility] Last Admin: 03/23/24 09:06 Dose: 5,000 unit Documented By: CURTIS Lactated Ringer's (Lr) 1,000 mls @ 100 mls/hr IVCONT .Q10H [facility] Last Admin: 03/23/24 14:52 Dose: Not Given Documented By: CURTIS Non-Admin Reason: off unit Lactated Ringer's (Lr) 1,000 mls @ 50 mls/hr IVCONT .Q20H [facility] Last Admin: 03/23/24 14:53 Dose: Not Given Documented By: CURTIS Non-Admin Reason: OR order Lamotrigine (Lamotrigine 100 Mg Tablet) 100 mg PO BEDTIME [facility] Last Admin: 03/22/24 20:36 Dose: 100 mg Documented By: BHANU Levothyroxine Sodium (Levothyroxine Sodium 175 Mcg Tablet) 175 mcg PO DAILY@0630 [facility] Last Admin: 03/23/24 06:33 Dose: 175 mcg Documented By: BHANU [place] Carbonate ([place] Carbonate Er 450 Mg Tablet.Er) 900 mg PO BEDTIME [facility] Last Admin: 03/22/24 20:35 Dose: 900 mg Documented By: BHANU Magnesium Hydroxide (Milk Of Magnesia 30 Ml Oral.Susp) 30 ml PO DAILY PRN PRN Reason: Constipation Melatonin (Melatonin 3 Mg Tablet) 6 mg PO BEDTIME PRN PRN Reason: Insomnia Memantine (Memantine Hcl 10 Mg Tablet) 10 mg PO BID [facility] Last Admin: 03/23/24 09:02 Dose: 10 mg Documented By: CURTIS Mycophenolate Mofetil (Mycophenolate Mofetil 250 Mg Capsule) 500 mg PO BID [facility] Last Admin: 03/23/24 09:02 Dose: 500 mg Documented By: CURTIS Naloxone HCl (Naloxone Hcl 0.4 Mg/Ml Vial) 0.04 mg IVPUSH Q5M PRN PRN Reason: Excessive sedation or RR < 8 Omeprazole (Omeprazole 40 Mg Capsule.Dr) 40 mg PO DAILY@0630 [facility] Last Admin: 03/23/24 06:33 Dose: 40 mg Documented By: BHANU Ondansetron HCl (Ondansetron Hcl 4 Mg/2 Ml Vial) 4 mg IVPUSH Q6H PRN PRN Reason: Nausea and Vomiting Last Admin: 03/22/24 09:19 Dose: 4 mg Documented By: JIMENEZ Prednisone (Prednisone 20 Mg Tablet) 20 mg PO DAILY [facility] Last Admin: 03/23/24 09:02 Dose: 20 mg Documented By: CURTIS Pyridostigmine [place] (Pyridostigmine [place] 60 Mg Tablet) 60 mg PO TID [facility] Last Admin: 03/23/24 09:01 Dose: 60 mg Documented By: CURTIS Quetiapine Fumarate (Quetiapine Fumarate 50 Mg Tablet) 150 mg PO BEDTIME [facility] Last Admin: 03/22/24 20:35 Dose: 150 mg Documented By: BHANU Sertraline HCl (Sertraline Hcl 25 Mg Tablet) 25 mg PO DAILY [facility] Last Admin: 03/23/24 09:02 Dose: 25 mg Documented By: CURTIS Sodium Chloride (0.9 % Sodium Chloride Flush 3 Ml Syringe) 3 ml IVFLUSH QSHIFT [facility] Last Admin: 03/23/24 09:05 Dose: Not Given Documented By: CURTIS Non-Admin Reason: IV Running Labs 03/20/24 06:14 03/23/24 08:11 Labs: Laboratory Results - last 24 hr 03/23/24 08:11 Anion Gap 8 L Estim Creat Clear Calc 50.3 Estimated GFR 54 Random Glucose 87 Calcium 9.1 Assessment and Plan (1) Myasthenia gravis with acute exacerbation: Status: Acute Assessment and Plan: 83 y/o M with a history of recently diagnosed myasthenia gravis, hx of mood dis ,cognitive imapirment: Myasthenia gravis with acute exacerbation : sob improving moniter VC stable Patient improved, IVIG completed neurochecks neurology consult noted-d/w Dr. Juarez patient is to follow-up with his office 2-3 weeks. Dizziness /lightheaness:mostly when stands or walk likely sec to relative hypovolemia, zack tele seems fine encouraged for po intake moniter orthostasis Does not seem orthostasis, but blood pressure fluctuates-may have relative hypovolemia due to above-mentioned issues, patient was encouraged for p.o. intake and hydration, also encouraged for using Ancelmo stockings. And orthostasis precautions. His dizziness improved currently asymptomatic. ? dysphagia: bedside swallow eval-chopped diet added Gi eval -need egd: Esophagus: GE junction at 40 cms. Mildly tortuous esophagus without stricture or ring Empiric balloon dilation was performed with a 20 mm (60 F) CRE balloon x 60 seconds A 1.5 - 2 cms polyp at GE junction with partial obstruction - polyp was removed piecemeal with a hot snare and retrieved with a Humphries net Stomach: Moderate diffuse gastric erythema - biopsies were obtained from the antrum. Multiple 5 to 15 mm benign appearing polyps in the stomach and one 10 mm polyp just distal to the cardia - biopsied Grade 2 flap valve on retroflexed examination of the cardia. Duodenum: Normal bulb and descending duodenum ,Intervention: Biopsies as noted above. Plan: Continue omeprazole 20 mg daily, patient is to follow-up with GI outpatient Dr. Hancock's office. mood dis: continue home meds once reconcile. PT recommended rehab dvt prophylax :s/c heparin ongoing need for stay: Awaiting rehab placement. Quality Stroke Does the patient have a stroke diagnosis?: No VTE Prior VTE?: No VTE Risk Level:: Medical - moderate - high VTE Device Contraindication: N/A - Device Ordered VTE Drug Contraindication: N/A - Med Ordered
[2024-03-23] MEDS: 0.9 % Sodium Chloride Flush 3 ML SYRINGE IVFLUSH (16:35)
[2024-03-23] MEDS: lamoTRIgine 100 MG TABLET PO (22:05)
[2024-03-23] MEDS: Lithium Carbonate ER 450 MG TABLET.ER 900 MG PO (22:05)
[2024-03-23] MEDS: QUEtiapine Fumarate 50 MG TABLET 150 MG PO (22:05)
[2024-03-24] VITALS (10 sets, daily range): BP systolic 136–156; BP diastolic 68–83; PULSE 63–86; RESP 16–18; TEMP 36.1–36.8; O2SAT 94–98
[2024-03-24] MEDS: ondansetron HCL 4 MG/2 ML VIAL IVPUSH ×2 (02:12→08:46)
[2024-03-24] MEDS: Heparin Sodium,Porcine 5,000 UNIT/ML VIAL 5000 UNIT SUBCUT ×3 (02:13→17:41)
[2024-03-24] MEDS: Omeprazole 40 MG CAPSULE.DR PO (06:36)
[2024-03-24] MEDS: Levothyroxine Sodium 175 MCG TABLET PO (06:37)
[2024-03-24] MEDS: Fluticasone Propionate Nasal 16 GM SPRAY 2 SPRAY NOSTRIL-B (08:45)
[2024-03-24] MEDS: predniSONE 20 MG TABLET PO (08:46)
[2024-03-24] MEDS: Memantine HCl 10 MG TABLET PO ×2 (08:46→20:40)
[2024-03-24] MEDS: mycophenolate mofetiL 250 MG CAPSULE 500 MG PO ×2 (08:46→20:40)
[2024-03-24] MEDS: Atorvastatin Calcium 20 MG TABLET PO (08:46)
[2024-03-24] MEDS: pyRIDostigmine bromide 60 MG TABLET PO ×3 (08:46→20:39)
[2024-03-24] MEDS: Sertraline HCL 25 MG TABLET PO (08:46)
[2024-03-24] MEDS: 0.9 % Sodium Chloride Flush 3 ML SYRINGE IVFLUSH ×3 (08:47→20:40)
--- NOTE | 2024-03-24 11:35 | MHC.CM.PN ---
EMR REVIEWED, CM MET W/PT TO DISCUSS DISPO D/T P.T. RECOMMENDING STR, PT SIGNS IMM 03/24/24 AND REPORTS HE IS AGREEABLE AND [facility] IS PREFERRED SNF, MM IS REVIEWING AND CM AWAITING RESPONSE, PT REQUESTED CM CONTACT PT'S , CM ATTEMPTED TO CALL AT 11:30AM, NO ANSWER AND DETAILED MESSAGE LEFT W/REQUEST FOR CALL BACK, CM TO REVISIT AND CONT TO FOLLOW.
--- NOTE | 2024-03-24 12:58 | HO.POSTANES ---
Post Anesthesia Evaluation Post Anesthesia Evaluation Date of Service: 03/24/24 Vital Signs: Vital Signs Temp Pulse Resp BP Pulse Ox O2 Del Method 03/24/24 12:48 94 Room Air 03/24/24 12:00 98 F 72 16 148/73 H 94 Room Air 03/24/24 08:00 98.2 F 69 18 154/75 H 94 Room Air 03/24/24 04:08 86 141/73 H 03/24/24 04:07 82 147/74 H 03/24/24 04:05 69 148/76 H Anesthesia: Monitored Mental Status: Awake Pain Control: Satisfactory Nausea/Vomiting: None Hydration: Adequate Anesthesia-Related Issues: No Anes. Related Issues
--- NOTE | 2024-03-24 16:10 | HO.PM.IMPN ---
Subjective Subjective Date of Service: 03/24/24 Interval History: f/u MG exacerbation s/p ivig treatment doing better, except for nausea this moring Physical Exam Vital Signs: Vital Signs: Last Vital Signs Temp 97.9 F 03/24/24 15:31 Pulse 68 03/24/24 15:31 Resp 18 03/24/24 15:31 BP 136/83 03/24/24 15:31 Pulse Ox 94 03/24/24 15:31 O2 Del Method Room Air 03/24/24 15:31 BMI result Body Mass Index 25.3 Appearance: Alert.? Oriented X3.?generalised weak. cvs: rrr, [id number] . res: air entry fair ,no rales or wheezing abd: no rebound or guarding ,nt, bs present. ext pulses present , no cyanosis neuro: axo3 , nonfocal. Objective Data Active Medications Acetaminophen (Acetaminophen 325 Mg Tablet) 650 mg PO Q6H PRN PRN Reason: Pain, Mild (Pain Scale 1-3), fever or headache Last Admin: 03/22/24 20:36 Dose: 650 mg Documented By: BHANU Atorvastatin Calcium (Atorvastatin Calcium 20 Mg Tablet) 20 mg PO DAILY [facility] Last Admin: 03/24/24 08:46 Dose: 20 mg Documented By: PAULETTE Calcium Carbonate (Calcium Carbonate 750 Mg Tab.Chew) 750 mg PO Q4H PRN PRN Reason: Heartburn Fluticasone Propionate (Fluticasone Propionate Nasal 16 Gm [place]) 2 spray NOSTRIL-B DAILY [facility] Last Admin: 03/24/24 08:45 Dose: 2 spray Documented By: PAULETTE Heparin Sodium (Porcine) (Heparin Sodium,Porcine 5,000 Unit/Ml Vial) 5,000 unit SUBCUT Q8H [facility] Last Admin: 03/24/24 08:46 Dose: 5,000 unit Documented By: PAULETTE Lactated Ringer's (Lr) 1,000 mls @ 50 mls/hr IVCONT .Q20H [facility] Last Admin: 03/24/24 09:49 Dose: Not Given Documented By: PAULETTE Non-Admin Reason: Physician Approved Lamotrigine (Lamotrigine 100 Mg Tablet) 100 mg PO BEDTIME [facility] Last Admin: 03/23/24 22:05 Dose: 100 mg Documented By: REAL Levothyroxine Sodium (Levothyroxine Sodium 175 Mcg Tablet) 175 mcg PO DAILY@0630 [facility] Last Admin: 03/24/24 06:37 Dose: 175 mcg Documented By: REAL [place] Carbonate ([place] Carbonate Er 450 Mg Tablet.Er) 900 mg PO BEDTIME [facility] Last Admin: 03/23/24 22:05 Dose: 900 mg Documented By: REAL Magnesium Hydroxide (Milk Of Magnesia 30 Ml Oral.Susp) 30 ml PO DAILY PRN PRN Reason: Constipation Melatonin (Melatonin 3 Mg Tablet) 6 mg PO BEDTIME PRN PRN Reason: Insomnia Memantine (Memantine Hcl 10 Mg Tablet) 10 mg PO BID [facility] Last Admin: 03/24/24 08:46 Dose: 10 mg Documented By: PAULETTE Mycophenolate Mofetil (Mycophenolate Mofetil 250 Mg Capsule) 500 mg PO BID [facility] Last Admin: 03/24/24 08:46 Dose: 500 mg Documented By: PAULETTE Naloxone HCl (Naloxone Hcl 0.4 Mg/Ml Vial) 0.04 mg IVPUSH Q5M PRN PRN Reason: Excessive sedation or RR < 8 Omeprazole (Omeprazole 40 Mg Capsule.Dr) 40 mg PO DAILY@0630 [facility] Last Admin: 03/24/24 06:36 Dose: 40 mg Documented By: REAL Ondansetron HCl (Ondansetron Hcl 4 Mg/2 Ml Vial) 4 mg IVPUSH Q6H PRN PRN Reason: Nausea and Vomiting Last Admin: 03/24/24 08:46 Dose: 4 mg Documented By: PAULETTE Prednisone (Prednisone 20 Mg Tablet) 20 mg PO DAILY [facility] Last Admin: 03/24/24 08:46 Dose: 20 mg Documented By: PAULETTE Pyridostigmine [place] (Pyridostigmine [place] 60 Mg Tablet) 60 mg PO TID [facility] Last Admin: 03/24/24 15:08 Dose: 60 mg Documented By: PAULETTE Quetiapine Fumarate (Quetiapine Fumarate 50 Mg Tablet) 150 mg PO BEDTIME [facility] Last Admin: 03/23/24 22:05 Dose: 150 mg Documented By: REAL Sertraline HCl (Sertraline Hcl 25 Mg Tablet) 25 mg PO DAILY [facility] Last Admin: 03/24/24 08:46 Dose: 25 mg Documented By: PAULETTE Sodium Chloride (0.9 % Sodium Chloride Flush 3 Ml Syringe) 3 ml IVFLUSH QSHIFT [facility] Last Admin: 03/24/24 15:08 Dose: 3 ml Documented By: PAULETTE Labs 03/20/24 06:14 03/23/24 08:11 Assessment and Plan (1) Myasthenia gravis with acute exacerbation: Status: Acute Assessment and Plan: 83 y/o M with a history of recently diagnosed myasthenia gravis, hx of mood dis ,cognitive imapirment: Myasthenia gravis with acute exacerbation, has completed 5 days of ivig, symptoms resolved. neurology consult noted-d/w Dr. Juarez patient is to follow-up with his office 2-3 weeks. Dizziness /lightheaness:likely related to hypovolemia, resolved ? dysphagia: bedside swallow eval-chopped diet added Gi eval -need egd: Esophagus: GE junction at 40 cms. Mildly tortuous esophagus without stricture or ring Empiric balloon dilation was performed with a 20 mm (60 F) CRE balloon x 60 seconds A 1.5 - 2 cms polyp at GE junction with partial obstruction - polyp was removed piecemeal with a hot snare and retrieved with a Humphries net Stomach: Moderate diffuse gastric erythema - biopsies were obtained from the antrum. Multiple 5 to 15 mm benign appearing polyps in the stomach and one 10 mm polyp just distal to the cardia - biopsied Grade 2 flap valve on retroflexed examination of the cardia. Duodenum: Normal bulb and descending duodenum ,Intervention: Biopsies as noted above. Plan: Continue omeprazole 20 mg daily, patient is to follow-up with GI outpatient Dr. Hancock's office. mood dis: continue home meds once reconcile. PT recommended rehab dvt prophylax :s/c heparin ongoing need for stay: Awaiting rehab placement. Quality Stroke Does the patient have a stroke diagnosis?: No VTE Prior VTE?: No VTE Risk Level:: Medical - moderate - high VTE Device Contraindication: N/A - Device Ordered VTE Drug Contraindication: N/A - Med Ordered
[2024-03-24] MEDS: QUEtiapine Fumarate 50 MG TABLET 150 MG PO (20:39)
[2024-03-24] MEDS: Lithium Carbonate ER 450 MG TABLET.ER 900 MG PO (20:40)
[2024-03-24] MEDS: lamoTRIgine 100 MG TABLET PO (20:40)
[2024-03-25 04:00] VITALS: BP 136/68; PULSE 58; RESP 16; TEMP 36.9; O2SAT 96
[2024-03-25] MEDS: Levothyroxine Sodium 175 MCG TABLET PO (06:23)
[2024-03-25] MEDS: Omeprazole 40 MG CAPSULE.DR PO (06:23)
[2024-03-25 07:55] VITALS: BP 144/75; PULSE 72; RESP 20; TEMP 37; O2SAT 94
--- NOTE | 2024-03-25 08:54 | P.CDIM_ITS ---
PROVIDER RESPONSE TEXT: To clarify, the appropriate diagnosis supported by the clinical indicators: Acute Gastritis QUERY TEXT: PHYSICIAN'S DOCUMENTATION REQUEST Date of Query: 03/25/2024 08:02 AM EST Patient Name: Darrian Winn Admit Date: 03/18/2024 Dear Lucas Valadez MD, A review of the medical record indicates additional documentation may be needed. Please review below and update the documentation accordingly. Clinical Indicators: Op note dated 03/23 - Post-op diagnosis from Upper GI Endoscopy - Dysphagia, Gastritis, Esophageal po lyp. Continue Omeprazole Clarify which of the following accurately represents the acuity of the noted Gastritis: Possible options might include: Acute Gastritis Acute on chronic Gastritis Chronic Gastritis Other (explain) Clinically unable to determine (explain) Thank you, Hailey Hilliard, CCS, CDIS Use of terms such as suspected, likely, concern for, or probable (associated with a specific diagnosi s that is being evaluated, monitored, or treated as if it exists) are acceptable and can be coded in the inpatient se tting, when documented at the time of discharge. Please use your independent medical judgment in providing your response. THIS QUERY IS PART OF THE PERMANENT MEDICAL RECORD
[2024-03-25] MEDS: pyRIDostigmine bromide 60 MG TABLET PO (08:55)
[2024-03-25] MEDS: Atorvastatin Calcium 20 MG TABLET PO (08:55)
[2024-03-25] MEDS: Fluticasone Propionate Nasal 16 GM SPRAY 2 SPRAY NOSTRIL-B (08:55)
[2024-03-25] MEDS: mycophenolate mofetiL 250 MG CAPSULE 500 MG PO (08:56)
[2024-03-25] MEDS: Heparin Sodium,Porcine 5,000 UNIT/ML VIAL 5000 UNIT SUBCUT (08:56)
[2024-03-25] MEDS: 0.9 % Sodium Chloride Flush 3 ML SYRINGE IVFLUSH (08:56)
[2024-03-25] MEDS: Memantine HCl 10 MG TABLET PO (08:56)
[2024-03-25] MEDS: predniSONE 20 MG TABLET PO (08:56)
[2024-03-25] MEDS: Sertraline HCL 25 MG TABLET PO (08:56)
--- NOTE | 2024-03-25 09:03 | P.PNIM_ITS ---
Subjective Subjective Date of Service: 03/25/24 Physical Exam 2 Vital Signs: Vital Signs: Last Vital Signs Temp 98.6 F 03/25/24 07:55 Pulse 72 03/25/24 07:55 Resp 20 03/25/24 07:55 BP 144/75 H 03/25/24 07:55 Pulse Ox 94 03/25/24 07:55 O2 Del Method Room Air 03/25/24 07:55 BMI result Body Mass Index 25.3 Objective Data Active Medications Acetaminophen (Acetaminophen 325 Mg Tablet) 650 mg PO Q6H PRN PRN Reason: Pain, Mild (Pain Scale 1-3), fever or headache Last Admin: 03/22/24 20:36 Dose: 650 mg Documented By: BHANU Atorvastatin Calcium (Atorvastatin Calcium 20 Mg Tablet) 20 mg PO DAILY [facility] Last Admin: 03/25/24 08:55 Dose: 20 mg Documented By: PAULETTE Calcium Carbonate (Calcium Carbonate 750 Mg Tab.Chew) 750 mg PO Q4H PRN PRN Reason: Heartburn Fluticasone Propionate (Fluticasone Propionate Nasal 16 Gm [place]) 2 spray NOSTRIL-B DAILY [facility] Last Admin: 03/25/24 08:55 Dose: 2 spray Documented By: PAULETTE Heparin Sodium (Porcine) (Heparin Sodium,Porcine 5,000 Unit/Ml Vial) 5,000 unit SUBCUT Q8H [facility] Last Admin: 03/25/24 08:56 Dose: 5,000 unit Documented By: PAULETTE Lactated Ringer's (Lr) 1,000 mls @ 50 mls/hr IVCONT .Q20H [facility] Last Admin: 03/25/24 05:17 Dose: Not Given Documented By: REAL Non-Admin Reason: Physician Approved Lamotrigine (Lamotrigine 100 Mg Tablet) 100 mg PO BEDTIME [facility] Last Admin: 03/24/24 20:40 Dose: 100 mg Documented By: REAL Levothyroxine Sodium (Levothyroxine Sodium 175 Mcg Tablet) 175 mcg PO DAILY@0630 [facility] Last Admin: 03/25/24 06:23 Dose: 175 mcg Documented By: REAL [place] Carbonate ([place] Carbonate Er 450 Mg Tablet.Er) 900 mg PO BEDTIME [facility] Last Admin: 03/24/24 20:40 Dose: 900 mg Documented By: REAL Magnesium Hydroxide (Milk Of Magnesia 30 Ml Oral.Susp) 30 ml PO DAILY PRN PRN Reason: Constipation Melatonin (Melatonin 3 Mg Tablet) 6 mg PO BEDTIME PRN PRN Reason: Insomnia Memantine (Memantine Hcl 10 Mg Tablet) 10 mg PO BID [facility] Last Admin: 03/25/24 08:56 Dose: 10 mg Documented By: PAULETTE Mycophenolate Mofetil (Mycophenolate Mofetil 250 Mg Capsule) 500 mg PO BID [facility] Last Admin: 03/25/24 08:56 Dose: 500 mg Documented By: PAULETTE Naloxone HCl (Naloxone Hcl 0.4 Mg/Ml Vial) 0.04 mg IVPUSH Q5M PRN PRN Reason: Excessive sedation or RR < 8 Omeprazole (Omeprazole 40 Mg Capsule.Dr) 40 mg PO DAILY@0630 [facility] Last Admin: 03/25/24 06:23 Dose: 40 mg Documented By: REAL Ondansetron HCl (Ondansetron Hcl 4 Mg/2 Ml Vial) 4 mg IVPUSH Q6H PRN PRN Reason: Nausea and Vomiting Last Admin: 03/24/24 08:46 Dose: 4 mg Documented By: PAULETTE Prednisone (Prednisone 20 Mg Tablet) 20 mg PO DAILY [facility] Last Admin: 03/25/24 08:56 Dose: 20 mg Documented By: PAULETTE Pyridostigmine [place] (Pyridostigmine [place] 60 Mg Tablet) 60 mg PO TID [facility] Last Admin: 03/25/24 08:55 Dose: 60 mg Documented By: PAULTETE Quetiapine Fumarate (Quetiapine Fumarate 50 Mg Tablet) 150 mg PO BEDTIME [facility] Last Admin: 03/24/24 20:39 Dose: 150 mg Documented By: REAL Sertraline HCl (Sertraline Hcl 25 Mg Tablet) 25 mg PO DAILY [facility] Last Admin: 03/25/24 08:56 Dose: 25 mg Documented By: PAULETTE Sodium Chloride (0.9 % Sodium Chloride Flush 3 Ml Syringe) 3 ml IVFLUSH QSHIFT [facility] Last Admin: 03/25/24 08:56 Dose: 3 ml Documented By: PAULETTE Labs 03/20/24 06:14 03/23/24 08:11 Assessment and Plan (1) Myasthenia gravis with acute exacerbation: Status: Acute Assessment and Plan: 83 y/o M with a history of recently diagnosed myasthenia gravis, hx of mood dis ,cognitive imapirment: Myasthenia gravis with acute exacerbation, has completed 5 days of ivig, symptoms resolved. neurology consult noted-d/w Dr. Juarez patient is to follow-up with his office 2-3 weeks. Dizziness /lightheaness:likely related to hypovolemia, resolved ? dysphagia: bedside swallow eval-chopped diet added Gi eval -need egd: Esophagus: GE junction at 40 cms. Mildly tortuous esophagus without stricture or ring Empiric balloon dilation was performed with a 20 mm (60 F) CRE balloon x 60 seconds A 1.5 - 2 cms polyp at GE junction with partial obstruction - polyp was removed piecemeal with a hot snare and retrieved with a Humphries net Stomach: Moderate diffuse gastric erythema - biopsies were obtained from the antrum. Multiple 5 to 15 mm benign appearing polyps in the stomach and one 10 mm polyp just distal to the cardia - biopsied Grade 2 flap valve on retroflexed examination of the cardia. Duodenum: Normal bulb and descending duodenum ,Intervention: Biopsies as noted above. Plan: Continue omeprazole 20 mg daily, patient is to follow-up with GI outpatient Dr. Hancock's office. mood dis: continue home meds once reconcile. PT recommended rehab dvt prophylax :s/c heparin ongoing need for stay: Awaiting rehab placement. Quality Stroke Does the patient have a stroke diagnosis?: No VTE Prior VTE?: No VTE Risk Level:: Medical - moderate - high VTE Device Contraindication: N/A - Device Ordered VTE Drug Contraindication: N/A - Med Ordered
--- NOTE | 2024-03-25 09:05 | P.DS_ITS ---
DS: Providers Provider Date of Service: 03/25/24 Date of admission: 03/18/24 16:12 Date of discharge: 03/25/24 Primary care physician: Mika Barrientos MD Consults: 03/18/24 17:19 Consult to Neurology Routine Consulting Provider: [facility] Reason for consultation: myasthenia flare Has provider been notified: No 03/20/24 12:26 Consult to Gastroenterology Routine Consulting Provider: [facility] Reason for consultation: dysphagia Has provider been notified: No DS: Diagnosis Discharge Diagnosis (1) Myasthenia gravis with acute exacerbation: Status: Acute DS: Summary Hospital Course Hospital Course: admission Chief Complaint: myastenia gravis 83 y/o M with a history of recently diagnosed myasthenia gravis, hx of mood dis ,cognitive imapirment : Patient was recently started on prednisone and pyridostigmine-out patiently started few months back. He came for outpatient appointment has shortness of breath, swallow im pairment(unclear if chronic), no diplopia, feels generalized weak. Denies any new complaint of chest pain or abdominal pain or fever or chills or nausea or vomiting or cough or weakness or numbness. wbc : 14.3, bun 23/1.39 , ekg-nsr. cxr:Unremarkable examination. ed physciain d/w neuro: Dr. Juarez's office today for an outpatient appointment and neuro rec-admission for mystenia flare -also started on ivig ,Respiratory therapy has come and seen him and his NIF is -60 and his vital capacity is 2.5 L. Social history: Patient denies any recreation drug use or EtOH use or smoking. Denies any sick contacts or recent travel. hospital course: The patient presented with shortness of breath, difficulty swallowing, and generalized weakness during a follow-up visit at his neurologist's office. His clinical presentation was consistent with an acute flare of Myasthenia Gravis, and admission was advised. He has been treated with IVIG for 5 days and underwent close respiratory monitoring, including serial checks of vital capacity, which is now within normal limits. The patient reports overall improvement, though he remains generally weak. Physical therapy (PT) has recommended short-term rehabilitation (STR), and he is agreeable to this plan. He is to follow up with Neurology in 2 to 3 weeks. Dizziness /lightheaness:likely related to hypovolemia and above, resolved. Dysphagia: likely realted to Myasthenia flare. COMPUTER PROGRAMMING MANAGER recommended chopped diet He had EGD with the following fiding Esophagus: GE junction at 40 cms. Mildly tortuous esophagus without stricture or ring Empiric balloon dilation was performed with a 20 mm (60 F) CRE balloon x 60 seconds A 1.5 - 2 cms polyp at GE junction with partial obstruction - polyp was removed piecemeal with a hot snare and retrieved with a Humphries net Stomach: Moderate diffuse gastric erythema - biopsies were obtained from the antrum. Multiple 5 to 15 mm benign appearing polyps in the stomach and one 10 mm polyp just distal to the cardia - biopsied Grade 2 flap valve on retroflexed examination of the cardia. Duodenum: Normal bulb and descending duodenum ,Intervention: Biopsies as noted above. Advised to continue omeprazole 20 mg daily, and to follow up with GI clinic Time Attestation Discharge Coordination Time (in mins): 40 Quality: Safe Use of Opioids Does Pt have an Active Cancer Diagnosis on the Problem List?: No Quality: Stroke Does the patient have a stroke diagnosis?: No Physical Exam Vital Signs: Vital Signs: Last Vital Signs Temp 98.6 F 03/25/24 07:55 Pulse 72 03/25/24 07:55 Resp 20 03/25/24 07:55 BP 144/75 H 03/25/24 07:55 Pulse Ox 94 03/25/24 07:55 O2 Del Method Room Air 03/25/24 07:55 BMI result Body Mass Index 25.3 Const: Other: General: AO X 3, no acute distress Resp: CTA bilateral CVS: S1,S2,RRR GI: +BS, NT, no distention Skin: No rash Neuro: motor grossly intact Psych: appropriate affect DS: Data Data Completed and Pending Pending studies at discharge: Pending at discharge 03/23/24 13:44 Surgical [PTH] Routine Discharge Plan Discharge Anticipated Discharge Date/Time: 03/23/24 14:18 Patient Disposition: Xfer SNF Discharge Diagnosis: Myasthenia flare, dyspahgia Referrals: Manpreet Mejia [Outside] - 1 Day (SHORT TERM REHAB) Mika Barrientos MD [Primary Care Provider] - 1 Week Nancy Juarez MD [Physician] - 2 Weeks Discharge Medications: Continued quetiapine 200 mg tablet 200 mg PO BEDTIME Qty: 30 2RF prednisone 20 mg tablet 20 mg PO DAILY mycophenolate mofetil 500 mg tablet 500 mg PO BID lamotrigine [Lamictal] 100 mg tablet 100 mg PO BEDTIME sertraline 25 mg tablet 25 mg PO DAILY Qty: 30 2RF atorvastatin 20 mg tablet 20 mg PO DAILY levothyroxine 175 mcg tablet 175 mcg PO DAILY fluticasone propionate 50 mcg/actuation spray,suspension 2 spray intranasal DAILY cyanocobalamin (vitamin B-12) 1,000 mcg/mL solution 1,000 mcg IM QMONTH (DME) BD Luer-Abdelrahman Syringe 3 mL 25 x 5/8 syringe See Rx Instructions .ROUTE .MEDSUPPLY Qty: 1 Rx Instructions: As directed pyridostigmine bromide 60 mg tablet 60 mg PO TID memantine 10 mg tablet 10 mg PO BID pantoprazole 40 mg tablet,delayed release (DR/EC) 40 mg PO DAILY lithium carbonate 450 mg tablet extended release 900 mg PO BEDTIME Qty: 60 2RF Discharge Orders: Discharge Order (Routine); Ordered 03/25/24 Ordered By: Lucas Valadez Diet: Advance to usual diet Activity on Discharge: As tolerated Stand Alone Forms: Patient Portal Discharge page Print Language: B[place]ud[place] Care Plan Goals: Myasthenia flare -seems improved with 5 days ivig.sob seems resolved.follow up Dr Juarez's office. omeprazole 20 mg po bid, follow Gi Dr Hancock's office. Health Concerns: as above. Plan of Treatment: as above. Assessment: as above.
--- NOTE | 2024-03-25 09:35 | MHC.CM.PN ---
IMM 03/24/24 DELIVERED TO BEDSIDE, PT/ ACCEPTING BED AT [facility], PT'S ZAHEER WILL BRING COPY OF HCP TO FACILITY.[facility] FOR TRANSPORT AT 11:30AM
[2024-03-25] MEDS: Acetaminophen 325 MG TABLET 650 MG PO (10:50)
[2024-03-25 11:58] VITALS: BP 163/80; PULSE 67; RESP 16; TEMP 36.7; O2SAT 96
== END 2024-03-25 12:29 | disposition skilled nursing facility (03) | DRG 57 ==
LOC: HO.ED 15:48 → HO.EDOVER 16:17 → HO.IMC 03-19 17:12
PROVIDERS: Internal Medicine Gastroenterology; Registered Nurse Emergency; Admitting Provider Internal Medicine; Emergency Provider Emergency Medicine; PCP Internal Medicine; Visit Provider Internal Medicine
PROC: 0DJ08ZZ Inspection of Upper Intestinal Tract, Via Natural or Artificial Opening Endoscopic (ICD-10-PCS; CPT 43235; principal; 2024-03-23 14:20)
DX: G70.01 Myasthenia gravis with (acute) exacerbation (principal); F03.A0 Unspecified dementia, mild, without behavioral disturbance, psychotic disturbance, mood disturbance, and anxiety; R13.10 Dysphagia, unspecified; E86.1 Hypovolemia; K29.00 Acute gastritis without bleeding; F31.9 Bipolar disorder, unspecified; K22.81 Esophageal polyp; K31.7 Polyp of stomach and duodenum; Z20.822 Contact with and (suspected) exposure to COVID-19; Z79.51 Long term (current) use of inhaled steroids; Z79.890 Hormone replacement therapy; Z79.899 Other long term (current) drug therapy
CPT/HCPCS: 0241U; 36415; 71046; 76705; 80048; 80053; 80178; 83880; 84484; 85025; 85027; 85610; 88305; 88341; 88342; 92526; 92610; 93005; 94010; 97116; 97162; 99285; C1726; J1569; J1644; J2003; J2405; J2704; J7120

== ENCOUNTER → 2024-03-18 11:10 | Outpatient (BNV) | payer MEDICARE, BC, SELFPAY | PROVIDERS: Admitting Provider Internal Medicine; Emergency Provider Emergency Medicine; PCP Internal Medicine; Visit Provider Internal Medicine Cardiovascular Disease | DX: R94.31 Abnormal electrocardiogram [ECG] [EKG] (principal) | CPT/HCPCS: 93010 ==

== ENCOUNTER → 2024-03-18 16:12 | Outpatient (BNV) | payer MEDICARE, BC, SELFPAY | PROVIDERS: Admitting Provider Internal Medicine; Emergency Provider Emergency Medicine; PCP Internal Medicine; Visit Provider Internal Medicine Gastroenterology | DX: R13.14 Dysphagia, pharyngoesophageal phase (principal); K21.9 Gastro-esophageal reflux disease without esophagitis | CPT/HCPCS: 99222 ==

== ENCOUNTER → 2024-03-18 16:12 | Outpatient (BNV) | payer MEDICARE, BC, SELFPAY | PROVIDERS: Admitting Provider Internal Medicine; Emergency Provider Emergency Medicine; PCP Internal Medicine; Visit Provider Internal Medicine | DX: G70.01 Myasthenia gravis with (acute) exacerbation (principal) | CPT/HCPCS: 99222 ==

== ENCOUNTER → 2024-03-18 16:12 | Outpatient (BNV) | payer MEDICARE, BC, SELFPAY | PROVIDERS: Admitting Provider Internal Medicine; Emergency Provider Emergency Medicine; PCP Internal Medicine; Visit Provider Psychiatry & Neurology Neurology | DX: G70.01 Myasthenia gravis with (acute) exacerbation (principal) | CPT/HCPCS: 99222 ==

== ENCOUNTER → 2024-04-16 07:54 | Outpatient (BNVA) | payer MEDICARE, SELFPAY | PROVIDERS: PCP Internal Medicine; Visit Provider Internal Medicine Gastroenterology ==